=== PATIENT | male | born 1945 | race Caucasian/White ===

== ENCOUNTER 2018-06-18 12:11 | Inpatient (IN) | payer MEDICARE, OTHER ==
[2018-06-18] MEDS ORDERED: Piperacillin/Tazobac ADVAN(*) 3.375 GM in NS 0.9% 100 ML* 100 ML IVPB ONE (13:14)
--- NOTE | 2018-06-18 13:16 | ED ---
Headache - HPI Summary HPI Summary: The pt is a quadriplegic 72 y/o male accompanied by his and son presenting to [facility] c/o of MONREAL since yesterday afternoon. He notes neck pain, upper back pain, nausea, dehydration, loss of appetite and hypotension ( measured at home). The pain rated 4/10 in severity is described as aching. The pt denies fever and cough and reports a Mhx of PNA and RBBB. - History Of Current Complaint Chief Complaint: EDGeneral Stated Complaint: HEADACHE/NECK PAIN Time Seen by Provider: 06/18/18 12:56 Hx Obtained From: Patient, Family/Senior Clinical Data Analyst - Onset/Duration: Gradual Onset, Started days ago - 1 day ago, Still Present Initially Headache Was: Mild Currently Pain Is: Current Pain Scale(0-10)= - 4/10 Timing: Constant Associated Signs And Symptoms: Negative - Fever, cough, Nausea, Neck Pain, Other (Noted In Comments) - Loss of appetite, dehydration,hypotension, upper back pain - Allergies/Home Medications Allergies/Adverse Reactions: Allergies Allergy/AdvReac Type Severity Reaction Status Date / Time No Known Allergies Allergy Verified 06/18/18 12:48 PMH/Surg Hx/FS Hx/Imm Hx Previously Healthy: No Cardiovascular History: Reports: Hx Hypertension, Other Cardiovascular Problems/ Disorders - RBBB Respiratory History: Reports: Hx Pneumonia GI History: Reports: Hx Gastroesophageal Reflux Disease Neurological History: Reports: Hx Nerve Disease - Unspecified Psychiatric History: Reports: Hx Depression - Surgical History Surgery Procedure, Year, and Place: Appendectomy, bilateral meniscetomies, R hip repair Infectious Disease History: No Infectious Disease History: Denies: Traveled Outside the [place] in Last 30 Days - Family History Known Family History: Negative: Seizure Disorder, Blood Disorder - Social History Occupation: Retired Lives: With Family Alcohol Use: None Hx Substance Use: No Hx Tobacco Use: No Smoking Status (MU): Never Smoked Tobacco Review of Systems Constitutional: Other - Positive: dehydration, loss of appetite Negative: Fever Cardiovascular: Other - Positive: hypotension Negative: Cough Positive: Nausea Positive: Other - Positive: upper back pain Positive: Headache All Other Systems Reviewed And Are Negative: Yes Physical Exam - Summary Physical Exam Summary: Appearance:pt is alert and oriented; the pt is quadriplegic and wheelchair- bound Skin: warm, dry, reflects adequate perfusion Head/face: normal Eyes: EOMI, WHITNEY ENT: normal Neck: supple, non-tender Respiratory: CTA, breath sounds present Cardiovascular: RRR, pulses symmetrical Abdomen: non-tender, soft; distended Bowel: present Musculoskeletal: extremities are contracted Neuro: A&Ox3 quadriplegic Triage Information Reviewed: Yes Vital Signs On Initial Exam: Initial Vitals Temp Pulse Resp BP Pulse Ox 97.6 F 68 20 79/34 91 06/18/18 12:12 06/18/18 12:12 06/18/18 12:12 06/18/18 12:12 06/18/18 12:12 Vital Signs Reviewed: Yes Diagnostics - Vital Signs Vital Signs Temp Pulse Resp BP Pulse Ox 06/18/18 12:12 97.6 F 68 20 79/34 91 - Laboratory Result Diagrams: 06/18/18 13:35 06/18/18 13:35 Lab Statement: Any lab studies that have been ordered have been reviewed, and results considered in the medical decision making process. - Radiology CXR Radiology Interpretation Completed By: Radiologist - IMPRESSION: EXPIRATORY EXAMINATION. The ED physician has reviewed this radiology report. - EKG 13:37 Cardiac Rate: NL - 66 bpm EKG Interpretation: LBBB Headache Course/Dx - Course Course Of Treatment: A 72 year-old M presents to the ED with a CC of MONREAL since yesterday afternoon. He notes neck pain, upper back pain, nausea, dehydration, loss of appetite and hypotension (measured at home). The pain rated 4/10 in severity is described as aching. The pt denies fever and cough and reports a Mhx of PNA and RBBB. A physical exam revealed contracted extremities, and a distended abdomen. A CXR is normal. An EKG reveals LBBB. In the ED course, the pt was given lactated ringers 3540 mL IV, Vancomycin 1750 mg IV, N.s 0.9% 1000mL IV, Piperacilin 2.275 mg IV which improved the symptoms. I discussed the care of the pt with Dr. Marsh who agreed to admit the pt. Patient will be admitted with a final Dx of sepsis, hypotension, positive troponin, ACS, and abnormal LFTs. The pt is agreeable with this plan. Allergies noted. - Diagnoses Differential Diagnosis/HQI/PQRI: Other - sepsis/shock/pneumonia/acs Provider Diagnoses: Sepsis, Hypotension, Elevated troponin, ACS (acute coronary syndrome), Abnormal LFTs - Physician Notifications Discussed Care Of Patient With: Julia Marsh - Hospitalist Time Discussed With Above Provider: 14:20 Instructed by Provider To: Admit As Inpatient - Critical Care Time Critical Care Time: 30-74 min - 30 minutes Discharge - Sign-Out/Discharge Documenting (check all that apply): Patient Departure - Discharge Plan Condition: Stable Disposition: ADMITTED TO [facility] - Billing Disposition and Condition Condition: STABLE Disposition: Admitted to [facility] - Attestation Statements Document Initiated by Scribe: Yes Documenting Scribe: Mari Cuellar Provider For Whom Scribe is Documenting (Include Credential): Dr. Benjamin Riggs MD Scribe Attestation: Mari Gonzalez , scribed for Dr. Benjamin Riggs MD on 06/18/18 at 1833. Scribe Documentation Reviewed: Yes Provider Attestation: The documentation as recorded by the scribeMari accurately reflects the service I personally performed and the decisions made by , Dr. Benjamin Riggs MD
[2018-06-18 13:42] LABS: ABS Basophils 0 10^3/ul (0-0.2); ABS Eosinophils 0 10^3/ul (0-0.6); ABS Lymphocytes 0.2 10^3/ul (1.0-4.8); ABS Monocytes 0.3 10^3/ul (0-0.8); ABS Neutrophils 13.7 10^3/ul (1.5-7.7); ABS Nucleated RBC 0 10^3/ul; Eosinophil % 0 % (0-6); Hematocrit 41 % (42-52); Hemoglobin 13.7 g/dl (14.0-18.0); Lymphocyte % 1.5 % (25-47); Mean Corpuscular HGB Conc 33 g/dl (31-36); Mean Corpuscular Hemoglobin 29 pg (27-31); Mean Corpuscular Volume 87 fL (80-94); Mean Platelet Volume 8.7 um3 (7.4-10.4); Nucleated Red Blood Cells % 0; Platelet Count 216 10^3/ul (150-450); Red Blood Count 4.74 10^6/ul (4.00-5.40); Red Cell Distribution Width 16 % (10.5-15); White Blood Count 14.3 10^3/ul (3.5-10.8)
[2018-06-18] MEDS ORDERED: Vancomycin(*) 1,000 MG VIAL IVPB SCH (14:00)
[2018-06-18] MEDS ORDERED: Vancomycin(*) 1,750 MG in NS 0.9% 500 ML* 500 ML IVPB ONE (14:00)
[2018-06-18 14:04] LABS: EGFR Non-African American 40.9 (>60)
--- NOTE | 2018-06-18 14:10 | RAD ---
INDICATION: Sepsis COMPARISON: None TECHNIQUE: An AP portable view obtained at 1340 hours is submitted. FINDINGS: Bones/Soft Tissues: There are no acute bony findings. Cardiomediastinal: The cardiomediastinal silhouette is normal. Lungs: The examination is expiratory with vascular crowding. There is bibasilar atelectasis Pleura: There are no pleural effusions. Other: None IMPRESSION: EXPIRATORY EXAMINATION.
[2018-06-18] MEDS: Lactated Ringers 1000 ml Bag*IV.FLUID IV ONE ×3 (14:11→16:02)
[2018-06-18 14:45] LABS: Urine Appearance Cloudy; Urine Blood 2+ (Negative); Urine Color Amber; Urine Ketones Negative (Negative); Urine Protein Negative (Negative); Urine Red Blood Cell 3+(>10/hpf) (Absent); Urine Specific Gravity 1.013 (1.010-1.030); Urine Urobilinogen Negative (Negative); Urine White Blood Cell Trace(0-5/hpf) (Absent)
[2018-06-18] MEDS ORDERED: Magnesium Hydroxide LIQ* 30 ML UDC PO PRN (15:42)
[2018-06-18] MEDS ORDERED: Al Hydrox/Mg Hydrox/Simet LIQ* 30 ML UDC PO PRN (15:42)
[2018-06-18] MEDS ORDERED: Zosyn per Pharmacy* NOTE FOLLOW UP SCH (16:00)
[2018-06-18] MEDS: Iodixanol* (CONTRAST) 320 MG/ML 100 ML SDV IV ONE ×2 (17:01→17:10)
--- NOTE | 2018-06-18 17:28 | RAD ---
Indication: Nausea. Headache, sepsis, hypotension. Comparison: No relevant prior exams available on the [facility] [place] for comparison. Technique: Noncontrast CT vertex of skull through foramen magnum. Report: Image quality is severely compromised due to limitation in patient positioning resulting from severe thoracic kyphosis with resulting elevated head position relative to the gantry. Unremarkable ventricles and basal cisterns. No gross abnormality of the cerebral sulci or cerebellar fissures. Negative for midline shift. No compelling intra or extra-axial hemorrhage evident. Assessment for hernandez matter white matter obscuration is limited due to poor image quality. Indolent thickening of the inner table of the frontal bone and ossification of the interhemispheric falx noted. No suspicious calvarial or skull base lesions evident. Air-fluid level at the partially visualized RIGHT maxillary sinus. The remaining visualized paranasal sinuses and mastoid air spaces are clear. Unremarkable scalp. IMPRESSION: #. Limited exam as noted. #. No gross evidence for intracranial hemorrhage. #. No gross evidence for mass effect. #. Negative for hydrocephalus.
--- NOTE | 2018-06-18 17:54 | RAD ---
CLINICAL HISTORY: Nausea, sepsis and elevated bilirubin. Relevant surgical history includes appendectomy. COMPARISON: None TECHNIQUE: Contrast enhanced CT examination of the abdomen and pelvis from the lung bases through the initial tuberosities. The patient received 141 mL Visipaque 320 intravenously prior to imaging. FINDINGS: VISUALIZED LUNG BASES: There are small bibasilar pleural effusions. There are pleural-based densities at the left worse than right lungs consistent with atelectasis. ABDOMEN AND PELVIS: In the left lobe of the liver there are several fluid attenuation structures compatible with benign cysts. Smaller hypodense foci are identified that are too small to characterize on this CT examination. The spleen, pancreas and adrenal glands are grossly normal in appearance. The gallbladder is pathologically dilated measuring 6.1 cm in diameter. In the bilateral kidneys there are multiple low-attenuation foci some with Hounsfield units compatible with simple cyst while others have Hounsfield units in the negative range indicating the presence of fat. There are nonobstructing renal calculi, the largest measuring 9 mm in the left kidney. There is no hydronephrosis. A Britton catheter is in position with the balloon in the decompressed urinary bladder. The small and large bowel are not distended. The patient's normal appendix is identified in the right lower quadrant. There is no gross retroperitoneal or mesenteric lymphadenopathy. The pelvic viscera is normal in appearance. The abdominal aorta and iliac arteries are normal in course and diameter. There are advanced degenerative changes of the lower thoracic and lumbar spine in addition to what appears to be expansile low-attenuation material at the L1, L2 and L3 level. There is an anatomically aligned intramedullary fixation device at the left proximal femur. There is infiltration of the subcutaneous fat overlying the lateral lower abdominal wall and buttocks. Subcutaneous veins from the left axilla are seen tracking along the left lateral abdominal wall with contrast. IMPRESSION: 1. There is pathologic dilatation of the gallbladder measuring up to 6.1 cm in diameter. Please correlate to signs or symptoms of acute cholecystitis and/or biliary obstruction. If clinically warranted superior characterization can be made with right upper quadrant ultrasound. 2. Small bibasilar pleural effusions and linear density most consistent with atelectasis. 3. Multiple low-attenuation structures in the bilateral kidneys, most of which have Hounsfield unit measurements consistent with simple cysts while others consistent negative attenuation indicating the presence of fat. There is no hydronephrosis. Recommend further characterization with nonemergent ultrasound. 4. There is low-attenuation replacement of the L3 vertebral body extending to the L1 and L2 vertebral bodies. The chronicity of this is unknown but could be related to prior traumatic injury resulting in the patient's reported paraplegia. Alternatively, this could be the result of infection in a patient with sepsis. 5. Contrast presumably injected into the left upper extremity is seen refluxing in the superficial veins of the left abdomen suggesting the presence of central venous obstruction or stenosis. 6. Infiltration of the subcutaneous fat overlying the bilateral low abdomen and extending to the buttocks could be consistent with anicteric/fluid overload which would also correlate to the small bibasilar pleural effusions. 7. There are additional chronic, degenerative and iatrogenic findings described in the body the report.
--- NOTE | 2018-06-18 18:00 | RAD ---
INDICATION: Headache COMPARISON: None. TECHNIQUE: Axial source images were acquired with coronal and sagittal reformatting. FINDINGS: There is straightening of the normal cervical lordosis. The vertebral bodies and facet joints are otherwise appropriately aligned. There is no acute fracture or dislocation identified. Degenerative changes of the cervical spine includes loss of intervertebral disc height and mild marginal osteophyte formation. At the left neck the thyroid gland appears to be enlarged and partially calcified. It is not completely imaged on the CT examination. IMPRESSION: 1. DEGENERATIVE CHANGES OF THE CERVICAL SPINE WITHOUT DEFINITE EVIDENCE FOR FRACTURE OR DISLOCATION. 2. There is a low-attenuation partially calcified structure at the left lower neck suspected to be the thyroid gland. As clinically warranted superior characterization of the thyroid can be made with ultrasound.
[2018-06-18] MEDS: Acetaminophen TAB* 325 MG PO PRN (18:03)
[2018-06-18] MEDS ORDERED: Vancomycin(*) 1,000 MG in NS 0.9% 250 ML* 250 ML IVPB ONE (18:04)
[2018-06-18] MEDS: Pantoprazole IV* 40 MG IV SCH (18:57)
[2018-06-18] MEDS ORDERED: Vancomycin per Pharmacy* NOTE FOLLOW UP SCH (19:00)
[2018-06-18] MEDS: Piperacillin/Tazobac ADVAN(*) 3.375 GM in NS 0.9% 100 ML* 100 ML IVPB SCH (20:25)
--- NOTE | 2018-06-18 21:11 | HP ---
ADMISSION HISTORY AND PHYSICAL: DATE OF ADMISSION: 06/18/18 PATIENT OF ATTENDING HOSPITALIST: Dr. Conor Jett.* (DICTATED BY SORAYA ZELAYA) PRIMARY CARE PHYSICIAN: The patient is from out of town, and his PCP is unknown at this time. CHIEF COMPLAINT: Malaise, headache, and hypotension. HISTORY OF PRESENT ILLNESS: Mr. 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 He [place] at [facility], approximately 3- [address] from [place] and has been in town for the weekend to visit his son who works in [place]. 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 They were walking around a mall yesterday when the patient started to have occasional headaches, mostly located in the occipital area as well as pain along the posterior neck. He denied any photophobia, fever , muscle spasm, weakness, or numbness. He denied any chest pain, cough, shortness of breath, fever, or chills. He has history of pneumonia in the past for which he was hospitalized about 5 years ago as well as history of urinary tract infection; however, the patient is able to urinate on his own and he does not use a self-cath at home. He lives in [place], [place] and has no history of coronary artery disease. According to his who checked his blood pressure earlier today, it was noted to be low in average of 80s/40s associated with malaise, lack of appetite, nausea as well as upper back pain and neck pain. The patient notes that his posterior neck pain is rated 5/10, achy and it does not radiate anywhere else. Given his ongoing symptoms, he was brought to the emergency room for further evaluation. He had laboratory workup that revealed leukocytosis with white count of 14,000 as well as hypotension without tachycardia or high temperature; however, consistent with sepsis. The patient also had chemistry panel that revealed elevated bilirubin of 4 as well as elevated troponin of 0.17. His urinalysis showed white blood cells, but there was no evidence of nitrites or leukocyte esterase to be consistent with UTI. It was unclear what was the source of his sepsis for which we were asked to see the patient for further evaluation and to consider admission for close observation and treatment of severe sepsis. PAST MEDICAL HISTORY: Significant for: 1. Hypertension. 2. History of left bundle-branch block. 3. History of pneumonia with prior hospitalization. 4. History of gastroesophageal reflux disease. 5. History of ALS with rare presentation that led to the patient being quadriplegic approximately 20 years ago. 6. He also has history of depression. PAST SURGICAL HISTORY: Significant for: 1. Appendectomy. 2. Bilateral meniscectomies. 3. Right hip repair after fracture. CURRENT MEDICATIONS: According to his , his most updated medication list given to us included: 1. Coreg 12.5 mg 1 tablet b.i.d. 2. Zestoretic 20 mg 1 tablet every other day. 3. Lasix, takes 100 mg weekly, divided on 4 days at 40, 20, 20, and 20 mg respectively. 4. Baclofen 20 mg p.o. b.i.d. 5. Nexium 40 mg p.o. daily. 6. Zoloft 100 mg p.o. every other day. ALLERGIES: Include ROCEPHIN and ASPIRIN. SOCIAL HISTORY: The patient lives with his who is a retired nurse. They reside at [place], [place], approximately [address] from [place]. He is a nonsmoker. Denies alcohol intake. He wishes to be a full code and his is the healthcare proxy carrier. FAMILY HISTORY: Reviewed and noncontributory. REVIEW OF SYSTEMS: See HPI. Otherwise, 14 points review of systems were examined and they were essentially negative. PHYSICAL EXAMINATION GENERAL: He is a pleasant, obese, older male, in no acute distress or discomfort at the time of admission. VITAL SIGNS: Most recent set of vitals was temperature of 97.6, pulse of 64, blood pressure of 88/48, respirations of 20 with O2 sats of 95% on room air. HEENT: Head is normocephalic, atraumatic. Sclerae are anicteric. PERRLA. EOMs intact. There is moderate posterior C-spine tenderness along the midline with no evidence of ecchymosis or swelling. There is no photophobia noted. There is no tenderness or bone flexing the neck, so chin is touching the sternum. There is no other neck rigidity of meningeal signs noted. LUNGS: Clear to auscultation bilaterally. There are decreased breath sounds throughout. HEART: Regular rate and rhythm. Normal S1 and S2 without rubs, murmurs, or gallops. BACK: With normal curvature. No CVA tenderness. There is no evidence of any decubitus ulcers along the lower back or sacral area. ABDOMEN: Soft and protruded. There is a large midline ventral hernia noted that appears to be nontender and does not show signs of strangulation or incarceration. It is easily reducible and there are no other masses or lesion noted. No hepatosplenomegaly. RECTAL: Exam deferred at this time. EXTREMITIES: Without cyanosis, clubbing or edema. NEUROLOGIC: Tongue is midline and the patient is alert, oriented, and cooperative. Sensory motor exam deferred at this time. The patient with history of quadriplegia. LABORATORY WORKUP: CBC with white count of 14,000, hemoglobin 13.7, hematocrit of 41 and platelets of 216. Chemistry panel with sodium of 135, potassium 5.3, chloride 99, CO2 28, BUN of 31, creatinine of 1.6, glucose of 159. Lactic acid 1.0. LFTs elevated with alkaline phosphatase 173, total bilirubin of 4, AST of 259, and ALT of 320. His troponin was elevated at 0.17. ACCESSORY DIAGNOSTIC DATA: Chest x-ray showed expiratory effort. We will likely repeat it if there are any symptoms of cough or shortness of breath. His EKG showed left bundle-branch block, unchanged from prior record obtained from the . No evidence of ST changes. IMPRESSION: A 72-year-old gentleman with multiple complicated medical issues including a rare form of neurological condition that was subdivided as an ALS causing quadriplegia for the past 20 years as well as history of hypertension and anxiety, GERD who presented to the emergency room today with generally feeling weak, malaise, lack of appetite and found to be hypotensive with leukocytosis consistent with severe sepsis. ASSESSMENT AND PLAN: 1. Severe sepsis. I discussed the case with my attending, Dr. Jett and we agreed to admit the patient to the intensive care unit for close observation. He is receiving the proper fluid resuscitation per sepsis protocol in the emergency room and will continue aggressive hydration. Britton catheter was inserted to monitor his intake and output. It is unclear what is the source of his sepsis at this time; however, with his hypotension and leukocytosis, we will cover him empirically with Zosyn at this time awaiting urine cultures, blood cultures as well as CT scan of the abdomen and pelvis. In the setting of elevated bilirubinemia, I also suspect that the patient might have acute cholecystitis or possibly passing a gallbladder stone. He is unable to give a clear picture of his presentation due to lack of pain from his shoulders down. His abdomen appears to be soft on exam with no evidence of firmness or tympany or signs of acute abdomen. We will also repeat his chest x-ray at some point given his history of pneumonia; however, he presents with no evidence of cough or shortness of breath at this time. 2. Amyotrophic lateral sclerosis, a form of neuralgia with quadriplegia. The patient described a rare form of neurologic disease for which the patient has been worked extensively in the past and has been quadriplegic for the past 20 years. We will continue supportive care and move him around the bed every 2 hours. Avoid any pressure ulcers. 3. Elevated liver function tests. Again, in the setting of sepsis, I cannot rule out the possibility of acute cholecystitis. The patient does not appear to be jaundiced during exam; however, his bilirubin is up to 4 as well as his transaminases were slightly up as well. We will await the findings of his abdomen and pelvis CT for further evaluation. I have discussed these findings with his family who agreed to admission plans. 4. Elevated troponin. The patient expressed no chest pain or shortness of breath. He does not have any history of coronary artery disease or MD. I will obtain a serial troponin check, repeat his EKG in the morning for further evaluation. 5. Hypertension. Upon presentation, the patient was hypotensive likely secondary to severe sepsis and in the setting of dehydration as well since he has been nauseous and did not eat or drink anything all day. We will continue aggressive hydration and follow him up accordingly. 6. Gastroesophageal reflux disease. We will continue PPI coverage with Protonix. 7. Anxiety. We will resume his Zoloft. 8. DVT prophylaxis. He is a high risk and will be covered with subcu heparin. 9. Code status. He wishes to be a full code. 10. Disposition. Admit to intensive care unit for close observation, aggressive IV hydration, possible use of pressors in the setting of severe sepsis and additional workup to rule out possibility of gallbladder disease and rule out acute coronary syndrome in the setting of elevated troponin. I will also check a CT scan of the head and cervical spine given his presentation of headache; however, I suspect that could be likely musculoskeletal in origin. He seems to be stable at the time of admission and I would discuss the case with my attending who agreed to plan of care. TIME SPENT: Approximately 60 minutes were spent admitting this patient, with greater than 50% on taking history and performing physical exam. SORAYA ZELAYA [id number]/[facility] #: [id number]
[2018-06-18] MEDS: Ondansetron INJ* 2 MG/ML VIAL IV PRN (21:46)
[2018-06-18] MEDS ORDERED: NS 0.9% 500 ML* 500 ML IV ONE (22:50)
[2018-06-18] MEDS: Heparin VIAL(*) 5000 UNITS/ML VIAL (FIVE THOUSAND) SUBCUT SCH (22:57)
[2018-06-19] MEDS ORDERED: NS 0.9% 1000 ML* 1,000 ML IV SCH (02:00)
[2018-06-19] MEDS: Piperacillin/Tazobac ADVAN(*) 3.375 GM in NS 0.9% 100 ML* 100 ML IVPB SCH ×3 (03:38→19:43)
[2018-06-19 06:18] LABS: ABS Basophils 0 10^3/ul (0-0.2); ABS Eosinophils 0 10^3/ul (0-0.6); ABS Lymphocytes 0.1 10^3/ul (1.0-4.8); ABS Monocytes 0.6 10^3/ul (0-0.8); ABS Neutrophils 13.1 10^3/ul (1.5-7.7); ABS Nucleated RBC 0 10^3/ul; Eosinophil % 0 % (0-6); Hematocrit 37 % (42-52); Hemoglobin 12.1 g/dl (14.0-18.0); Lymphocyte % 1.1 % (25-47); Mean Corpuscular HGB Conc 33 g/dl (31-36); Mean Corpuscular Hemoglobin 29 pg (27-31); Mean Corpuscular Volume 87 fL (80-94); Nucleated Red Blood Cells % 0; Platelet Count 196 10^3/ul (150-450); Red Blood Count 4.24 10^6/ul (4.00-5.40); Red Cell Distribution Width 17 % (10.5-15); White Blood Count 13.9 10^3/ul (3.5-10.8)
[2018-06-19] MEDS: Heparin VIAL(*) 5000 UNITS/ML VIAL (FIVE THOUSAND) SUBCUT SCH ×3 (06:37→21:04)
[2018-06-19 06:38] LABS: EGFR Non-African American 55.7 (>60)
--- NOTE | 2018-06-19 08:52 | RAD ---
Indication: Distended gallbladder on CT. Nausea. Comparison: No relevant prior exams available on the [facility] P[facility] for comparison. Technique: RIGHT upper quadrant ultrasound. Report: Limited acoustic window due to large body habitus and patient unable to lie supine for ultrasound exam. Appropriate direction flow documented in the portal and hepatic veins. 18.2 cm liver is increased in echogenicity. No visualized focal hepatic lesions. Negative for intrahepatic biliary dilatation. The common bile duct could not be visualized. Distended gallbladder with shadowing stones at the level of the gallbladder neck. Normal range 2.8 mm gallbladder wall thickness. No appreciable pericholecystic fluid. Negative for sonographic Napoles's sign. The pancreas is largely obscured due to large body habitus and bowel gas. Negative for ascites. 13.5 cm RIGHT kidney is negative for hydronephrosis. IMPRESSION: #. Limited exam as noted. #. Hepatosteatosis. #. Distended gallbladder with cholelithiasis. Negative for gallbladder wall thickening, pericholecystic fluid, or sonographic Napoles sign to strongly favor acute cholecystitis.
[2018-06-19] MEDS: Ondansetron INJ* 2 MG/ML VIAL IV PRN (09:01)
--- NOTE | 2018-06-19 10:10 | PN ---
Date of Service: 06/19/18 Critical Care Services: 72M with htn, gerd, h/o LBBB, ALS presents with AMS that started yesterday. The patient was brought to the ER and was found to have leukocytosis and abnormal LFTs. He was hypotensive and started on if fluids and antibiotics. 06/19: Mental status somewhat improved as per family. BP remains low. Vital Signs: Temp Pulse Resp BP SpO2 FiO2 98.4 F 78 16 89/40 91 2 06/19/18 08:00 06/19/18 06:00 06/19/18 06:00 06/19/18 06:00 06/19/18 06:00 06/19 03:55 Physical Exam: Gen - NAD, Obese HEENT - NCAT, EOMI Neck - No JVD CV - s1/s2, no murmur Lungs - dec bs, no wheeze Abd - soft, nt, Ext - contracted, trace edema Neuro - answers questions slowly, does not move extremities Fluid Balance (Past 24 Hours): I= O= Net Intake & Output 06/17/18 06/18/18 06/19/18 06/20/18 06:59 06:59 06:59 06:59 Intake Total 5247 Output Total 1435 Balance 3812 Weight 121 kg Intake: IV Fluids 2458 LR 258 IVPB 2664 LR 1390 NS 1274 Medicated IV 125 zosyn 125 Oral 0 Output: Byers 1135 Residual 300 Byers 16 Fr 300 Labs: Laboratory Results - last 24 hr 06/18/18 06/18/18 06/18/18 13:35 13:35 13:35 WBC 14.3 H RBC 4.74 Hgb 13.7 L Hct 41 L MCV 87 MCH 29 MCHC 33 RDW 16 H Plt Count 216 MPV 8.7 Neut % (Auto) 96.3 H Lymph % (Auto) 1.5 L [place] % (Auto) 2.1 Eos % (Auto) 0 Baso % (Auto) 0.1 Absolute Neuts (auto) 13.7 H Absolute Lymphs (auto) 0.2 L Absolute Monos (auto) 0.3 Absolute Eos (auto) 0 Absolute Basos (auto) 0 Absolute Nucleated RBC 0 Nucleated RBC % 0 INR (Anticoag Therapy) 1.00 APTT 34.5 Sodium 135 Potassium 5.3 H Chloride 99 L Carbon Dioxide 28 Anion Gap 8 BUN 31 H Creatinine 1.66 H Est GFR ( Amer) 49.5 Est GFR (Non-Af Amer) 40.9 BUN/Creatinine Ratio 18.7 Glucose 159 H Lactic Acid Calcium 8.7 Total Bilirubin 4.00 H AST 259 H ALT 320 H Alkaline Phosphatase 173 H Total Creatine Kinase 217 Troponin I 0.17 H* Total Protein 6.8 Albumin 3.8 Globulin 3.0 Albumin/Globulin Ratio 1.3 Lipase 20 Urine Color Urine Appearance Urine pH Ur Specific [place] Urine Protein Urine Ketones Urine Blood Urine Nitrate Urine Bilirubin Urine Urobilinogen Ur Leukocyte Esterase Urine WBC (Auto) Urine RBC (Auto) Ur Squamous Epith Cells Urine Bacteria Hyaline Casts Urine Glucose Urine Ascorbic Acid 06/18/18 06/18/18 06/18/18 13:35 14:29 21:56 WBC RBC Hgb Hct MCV MCH MCHC RDW Plt Count MPV Neut % (Auto) Lymph % (Auto) [place] % (Auto) Eos % (Auto) Baso % (Auto) Absolute Neuts (auto) Absolute Lymphs (auto) Absolute Monos (auto) Absolute Eos (auto) Absolute Basos (auto) Absolute Nucleated RBC Nucleated RBC % INR (Anticoag Therapy) APTT Sodium Potassium Chloride Carbon Dioxide Anion Gap BUN Creatinine Est GFR ( Amer) Est GFR (Non-Af Amer) BUN/Creatinine Ratio Glucose Lactic Acid 1.0 Calcium Total Bilirubin AST ALT Alkaline Phosphatase Total Creatine Kinase Troponin I 0.17 H* Total Protein Albumin Globulin Albumin/Globulin Ratio Lipase Urine Color Stella Urine Appearance Cloudy Urine pH 5.0 Ur Specific [place] 1.013 Urine Protein Negative Urine Ketones Negative Urine Blood 2+ A Urine Nitrate Negative Urine Bilirubin Negative Urine Urobilinogen Negative Ur Leukocyte Esterase Negative Urine WBC (Auto) Trace(0-5/hpf) Urine RBC (Auto) 3+(>10/hpf) A Ur Squamous Epith Cells Present A Urine Bacteria Absent Hyaline Casts Present A Urine Glucose Negative Urine Ascorbic Acid * A 06/19/18 06/19/18 06/19/18 00:54 05:57 05:57 WBC 13.9 H RBC 4.24 Hgb 12.1 L Hct 37 L MCV 87 MCH 29 MCHC 33 RDW 17 H Plt Count 196 MPV 9.0 Neut % (Auto) 94.4 H Lymph % (Auto) 1.1 L [place] % (Auto) 4.4 Eos % (Auto) 0 Baso % (Auto) 0.1 Absolute Neuts (auto) 13.1 H Absolute Lymphs (auto) 0.1 L Absolute Monos (auto) 0.6 Absolute Eos (auto) 0 Absolute Basos (auto) 0 Absolute Nucleated RBC 0 Nucleated RBC % 0 INR (Anticoag Therapy) APTT Sodium 137 Potassium 4.9 Chloride 102 Carbon Dioxide 25 Anion Gap 10 BUN 34 H Creatinine 1.27 H Est GFR ( Amer) 67.5 Est GFR (Non-Af Amer) 55.7 BUN/Creatinine Ratio 26.8 H Glucose 136 H Lactic Acid 0.8 Calcium 7.9 L Total Bilirubin 1.90 H D AST 150 H ALT 242 H Alkaline Phosphatase 145 H Total Creatine Kinase Troponin I Total Protein 5.8 L Albumin 3.2 Globulin 2.6 Albumin/Globulin Ratio 1.2 Lipase Urine Color Urine Appearance Urine pH Ur Specific [place] Urine Protein Urine Ketones Urine Blood Urine Nitrate Urine Bilirubin Urine Urobilinogen Ur Leukocyte Esterase Urine WBC (Auto) Urine RBC (Auto) Ur Squamous Epith Cells Urine Bacteria Hyaline Casts Urine Glucose Urine Ascorbic Acid Studies: CXR 06/18 IMPRESSION: EXPIRATORY EXAMINATION. CT abd/pel 06/18 IMPRESSION: 1. There is pathologic dilatation of the gallbladder measuring up to 6.1 cm in diameter. Please correlate to signs or symptoms of acute cholecystitis and/or biliary obstruction. If clinically warranted superior characterization can be made with right upper quadrant ultrasound. 2. Small bibasilar pleural effusions and linear density most consistent with atelectasis. 3. Multiple low-attenuation structures in the bilateral kidneys, most of which have Hounsfield unit measurements consistent with simple cysts while others consistent negative attenuation indicating the presence of fat. There is no hydronephrosis. Recommend further characterization with nonemergent ultrasound. 4. There is low-attenuation replacement of the L3 vertebral body extending to the L1 and L2 vertebral bodies. The chronicity of this is unknown but could be related to prior traumatic injury resulting in the patient's reported paraplegia. Alternatively, this could be the result of infection in a patient with sepsis. 5. Contrast presumably injected into the left upper extremity is seen refluxing in the superficial veins of the left abdomen suggesting the presence of central venous obstruction or stenosis. 6. Infiltration of the subcutaneous fat overlying the bilateral low abdomen and extending to the buttocks could be consistent with anicteric/fluid overload which would also correlate to the small bibasilar pleural effusions. 7. There are additional chronic, degenerative and iatrogenic findings described in the body the report. Brain CT 06/18 IMPRESSION: #. Limited exam as noted. #. No gross evidence for intracranial hemorrhage. #. No gross evidence for mass effect. #. Negative for hydrocephalus. Cervical Spine CT 06/18 IMPRESSION: 1. DEGENERATIVE CHANGES OF THE CERVICAL SPINE WITHOUT DEFINITE EVIDENCE FOR FRACTURE OR DISLOCATION. 2. There is a low-attenuation partially calcified structure at the left lower neck suspected to be the thyroid gland. As clinically warranted superior characterization of the thyroid can be made with ultrasound. Gallbladder US 06/19 IMPRESSION: #. Limited exam as noted. #. Hepatosteatosis. #. Distended gallbladder with cholelithiasis. Negative for gallbladder wall thickening, pericholecystic fluid, or sonographic Napoles sign to strongly favor acute cholecystitis. Impression: 72M with htn, gerd, ALS, presents with AMS 2/2 severe sepsis Plan: Neuro - AMS - 2/2 sepsis - somewhat improved CV - hypotension - 2/2 sepsis - will likely need central line for pressors - iv hydration Pulm - hypoxia - 2/2 ALS - supplemental o2 prn - cough assist device - Bipap prn ID - severe sepsis - 2/2 biliary source? - lfts elevated - f/u cultures - lactate negative - empiric vanc zosyn GI - elevated lfts - slightly improved - ct showing dilated gallbladder - RUQ sono distended gallbladder but no wall thickening or pericholecystic fluid - GI and surgery evaluating Renal - sirisha - 2/2 sepsis - creatinine improving - monitor lytes - strict i/o Heme - monitor cbc Endo - check fs, niss Lines - piv, byers PPx - gi/dvt Full Code Critical Care Time: 50 mins
--- NOTE | 2018-06-19 12:45 | CONS ---
AMENDED REPORT NOW INCLUDES DATE OF CONSULT CC: Dr. Epi Silverio; [facility] CONSULTATION REPORT: DATE OF CONSULT: 06/19/18 HISTORY OF PRESENT ILLNESS: The Surgery Department was contacted by the ICU team to evaluate Mr. Lema, a 72-year-old gentleman who was admitted through the emergency room yesterday with complaints of neck and back pain, was noted to have elevated LFTs and was sent for CT scan of the abdomen and pelvis despite no significant abdominal pain and this was noted to have a dilated gallbladder. Concern was for possible cholecystitis and the patient was admitted with hypotension. Elevated white blood cell count, started on antibiotics and workup included an ultrasound of the gallbladder, which was reviewed as well. The patient was up visiting his relatives when he started experiencing decreased appetite night. He hardly ate anything on Thursday. The patient is fed by his secondary to his advanced ALS. He complained of back pain and as well as who is a nurse took his blood pressure, which was noted to be low and the patient then presented to the emergency room because of this. The patient denies any similar symptoms in the past. Continues to have no significant appetite, some nausea, but no vomiting. He denies abdominal pain. He continues to have neck and back pain. PAST MEDICAL HISTORY: 1. 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 2. Hypertension. 3. Left bundle branch block. 4. Gastroesophageal reflux disease. 5. Depression. PAST SURGICAL HISTORY: 1. Appendectomy. 2. Orthopedic surgeries. MEDICATIONS: Include, 1. Coreg. 2. Zestoretic. 3. Lasix. 4. Baclofen. 5. Nexium. 6. Zoloft. ALLERGIES: ROCEPHIN and ASPIRIN. FAMILY HISTORY: Biliary disease, but no pancreatic cancers, history of colon cancer in his mother. SOCIAL HISTORY: He is a nonsmoker, never smoked. Denies alcohol intake. Lives with his . REVIEW OF SYSTEMS: No shortness of breath, the patient had reflux and aspiration with pneumonia requiring hospitalization last year for about 2 weeks. He is moved by Ethan lift by family members. He is fed by his and usually has a good appetite. No bleeding or clotting disorders. No endocrine disorders. He has been tested for diabetes. No psychiatric illnesses other than mild depression. PHYSICAL EXAM: Temperature, he has been afebrile since arrival at 98.4 is the last. Heart rate in the 70s. Blood pressure 89/40 and has gotten as low as 73. His urine output has been low to fair. Head, ears, eyes, nose, and throat: Normocephalic. Atraumatic. Sclerae are icteric. Neck: Shows no lymphadenopathy. No tenderness or findings along the posterior neck where the patient has discomfort. Lungs: Clear to auscultation at the apices. The patient is quadriplegic and morbidly obese with a BMI of 36. His abdomen is mildly distended. It is tender on deep palpation in the right upper quadrant and in the epigastrium. No rebound tenderness. Sensation is intact. No groin hernias are noted. No CVA tenderness. Extremities: Edema in all 4 extremities. DIAGNOSTIC STUDIES/LAB DATA: The patient's labs were reviewed, showed white count of 14 with left shift upon arrival, still 14 on repeat. Creatinine 1.66 on arrival, which is now 1.27. Lactate is normal. The patient's bilirubin upon arrival is 4, it has come down to 1.9 with elevated transaminases, which have also decreased. The patient has troponin of 0.17 and an albumin of 3.2. The patient's CAT scan of the abdomen and pelvis was reviewed along with the radiologist, dilated gallbladder. Common bile duct was not commented on, but we did discuss it and there could be sign of debris within a nondilated common bile duct. Pancreas is atrophic. No evidence of small bowel obstruction. No free fluid or free air. The patient underwent an ultrasound of the gallbladder and this was reviewed, showed significant amount of stones, dilated gallbladder without gallbladder wall thickening. No pericholecystic fluid. IMPRESSION: A 72-year-old gentleman with amyotrophic lateral sclerosis who presents with back pain and now is noted to have continued hypotension and elevated white blood cell count with improving LFTs, who I believe is suffering with biliary disease, it was unclear if this is cholangitis or resolving cholangitis over cholecystitis with significant hypotension response. The patient is a high risk for intervention at this time with his blood pressure as it is and I would recommend antibiotics and repeat labs, continue hydration. He can have sips of clears if it is okay with Gastroenterology. After discussion with the radiologist, the concern is that an MRCP may not be helpful given the patient's body habitus. However, this may be a good attempted workup for the possibility of cholangitis. The patient has shown some improvement since admission and watchful waiting and continued ICU care seems reasonable. Case was discussed with the ICU attending and we will follow along closely. I do believe the patient should get cholecystectomy at some point and may require urgently on this admission. This is why we will follow him closely. If the patient improves overall whether or not he needs an ERCP or not, I think the patient should undergo laparoscopic cholecystectomy in outpatient setting to prevent repeat of this presentation. [id number]/[facility] #: [id number] [facility] CENTERIvette
[2018-06-19] MEDS ORDERED: Metoclopramide IV* 5 MG/ML 2 ML VIAL IV SLOW PU ONE (13:02)
[2018-06-19] MEDS: Vancomycin(*) 1,500 MG in NS 0.9% 250 ML* 250 ML IVPB SCH (14:15)
[2018-06-19] MEDS ORDERED: Acetaminop/Codeine 30 MG TAB* 1 TAB (300 MG/30 MG) PO ONE ×2 (15:00→23:45)
[2018-06-19] MEDS: Sertraline* 100 MG TAB PO SCH (17:00)
[2018-06-19] MEDS: Pantoprazole IV* 40 MG IV SCH (17:00)
--- NOTE | 2018-06-19 19:50 | CONS ---
GASTROENTEROLOGY CONSULT: DATE: CONSULTING PHYSICIAN: Conor Jett REASON FOR CONSULT: a quadriplegic man with sepsis, on Zosyn and with elevation of LFTs a question of choledocholithiasis. HISTORY OF PRESENT ILLNESS: This 72-year-old man with a progressive neurologic disorder resulting in quadriplegia, developed neck and head pain yesterday. He apparently has normal sensory function in the paralyzed area. He was anorectic, weak and lethargic with depressed sensorium and was brought to the emergency room where he was found to be hypotensive, blood pressure in the 70s, systolic. He is afebrile, but his white count was elevated at 14.3 and appearing septic, he was placed on an antibiotic and admitted to the ICU. CT scan showed some dilation of the gallbladder and bilateral pleural effusions. There were also cysts in the kidneys and the left lobe of the liver. Pancreas appeared atrophic. He was given IV fluids with the antibiotic and his blood pressure has trended up with no pressors yet. His urine output has been 15 to 30 cc per hour. BUN went from 31 to 34 and creatinine from 1.66 to 1.27. PAST MEDICAL HISTORY: 1. Morbid obesity. 2. History of progressive neurologic disorder - ALS variant. 3. Left bundle branch block. 4. Hypertension. 5. GERD - on chronic Nexium. 6. Status post appendectomy. 7. Status post hip fracture and repair. 8. Chronic peripheral edema - he is on chronic diuretics. OUTPATIENT MEDICATIONS: Coreg. Zestoretic Furosemide (4 days a week). Baclofen. Zoloft Nexium 40 mg. SOCIAL HISTORY: He is and he can only move about when his pushes him in a wheelchair. He has a son who lives here in town. REVIEW OF SYSTEMS: No history of hemoptysis, TB, pulmonary emboli, TIA, CVA, PA , cardiac arrhythmias, hepatitis, jaundice, or colon polyps. No history of dysphagia. He eats a general diet without restrictions. PHYSICAL EXAM: He is a chronically ill-appearing man, substantially obese, in bed, immobile. He is anicteric. There is no adenopathy. Breath sounds are diminished. There is no rhonchi or gurgling. The abdomen is obese, symmetric with normal bowel sounds and is generally soft and without rebound. No specific tenderness was elicited. The extremities are atrophic, 1+ edema. Neurologic shows him to be alert, attentive, and he can converse, but he is paralyzed. DIAGNOSTIC STUDIES/LAB DATA: CBC shows hemoglobin 12.1, hematocrit 37, MCV 87, platelets 196. INR 1.0. Today's LFTs improved; bilirubin 1.9 down from 4.0, alkaline phosphatase 145 down from 173, and ALT 242 down from 320. Right upper quadrant ultrasound - shadowing gallstones in the gallbladder and the common duct was not seen. Gallbladder wall thickness was normal. IMPRESSION: Sepsis, probably of biliary origin (as opposed to bilirubin raising nonspecifically with sepsis) and most likely a small pebble transited at cystic and then common duct. Fortunately, there is no sign of anything lodging or causing persisting obstruction. He has gallstones and Dr. Pavon plans to follow him and determine the proper time for cholecystectomy. If he is cholestatic and LFTs abnormalities continue to improve, no further assessment there would appear indicated. [id number]/[facility] #: [id number] [facility]
[2018-06-19] MEDS ORDERED: Acetaminop/Codeine 30 MG TAB* 1 TAB (300 MG/30 MG) ONE (23:47)
[2018-06-20] MEDS ORDERED: ALPRAZolam TAB* 0.25 MG ONE (00:53)
[2018-06-20] MEDS: ALPRAZolam TAB* 0.25 MG PO PRN ×2 (00:55→21:11)
[2018-06-20] MEDS: Piperacillin/Tazobac ADVAN(*) 3.375 GM in NS 0.9% 100 ML* 100 ML IVPB SCH ×3 (03:54→19:47)
[2018-06-20] MEDS: Heparin VIAL(*) 5000 UNITS/ML VIAL (FIVE THOUSAND) SUBCUT SCH ×3 (05:11→21:06)
[2018-06-20 05:36] LABS: ABS Basophils 0 10^3/ul (0-0.2); ABS Eosinophils 0 10^3/ul (0-0.6); ABS Lymphocytes 0.1 10^3/ul (1.0-4.8); ABS Monocytes 0.6 10^3/ul (0-0.8); ABS Neutrophils 15.3 10^3/ul (1.5-7.7); ABS Nucleated RBC 0 10^3/ul; Eosinophil % 0.1 % (0-6); Hematocrit 38 % (42-52); Hemoglobin 12.3 g/dl (14.0-18.0); Lymphocyte % 0.9 % (25-47); Mean Corpuscular HGB Conc 33 g/dl (31-36); Mean Corpuscular Hemoglobin 29 pg (27-31); Mean Corpuscular Volume 88 fL (80-94); Mean Platelet Volume 9.1 um3 (7.4-10.4); Nucleated Red Blood Cells % 0; Platelet Count 199 10^3/ul (150-450); Red Blood Count 4.28 10^6/ul (4.00-5.40); Red Cell Distribution Width 17 % (10.5-15); White Blood Count 16.1 10^3/ul (3.5-10.8)
--- NOTE | 2018-06-20 08:16 | PN ---
Date of Service: 06/20/18 Critical Care Services: 72M with htn, gerd, h/o LBBB, ALS presents with AMS that started yesterday. The patient was brought to the ER and was found to have leukocytosis and abnormal LFTs. He was hypotensive and started on if fluids and antibiotics. 06/19: Mental status somewhat improved as per family. BP remains low. 06/20: Mental status and lab work improving. Vital Signs: Temp Pulse Resp BP SpO2 FiO2 98.5 F 90 21 110/46 92 2 06/20/18 03:32 06/20/18 06:01 06/20/18 06:01 06/20/18 06:01 06/20/18 06:01 06/20 03:58 Physical Exam: Gen - NAD, Obese HEENT - NCAT, EOMI Neck - No JVD CV - s1/s2, no murmur Lungs - dec bs, no wheeze Abd - soft, nt, Ext - contracted, worsening edema Neuro - answers questions slowly, does not move extremities Fluid Balance (Past 24 Hours): I= O= Net Intake & Output 06/18/18 06/19/18 06/20/18 06/21/18 06:59 06:59 06:59 06:59 Intake Total 5247 3441 Output Total 1435 845 Balance 3812 2596 Weight 121 kg 124.7 kg Intake: IV Fluids 2458 1667 LR 258 1503 NS 164 IVPB 2664 1549 ABX - VANCOMYCIN 310 LR 1390 1123 NS 1274 116 Medicated IV 125 225 zosyn 125 225 Oral 0 0 Output: Byers 1135 845 Residual 300 Byers 16 Fr 300 Labs: Laboratory Results - last 24 hr 06/20/18 06/20/18 05:15 05:15 WBC 16.1 H RBC 4.28 Hgb 12.3 L Hct 38 L MCV 88 MCH 29 MCHC 33 RDW 17 H Plt Count 199 MPV 9.1 Neut % (Auto) 95.1 H Lymph % (Auto) 0.9 L [place] % (Auto) 3.6 Eos % (Auto) 0.1 Baso % (Auto) 0.3 Absolute Neuts (auto) 15.3 H Absolute Lymphs (auto) 0.1 L Absolute Monos (auto) 0.6 Absolute Eos (auto) 0 Absolute Basos (auto) 0 Absolute Nucleated RBC 0 Nucleated RBC % 0 Sodium 137 Potassium 4.6 Chloride 105 Carbon Dioxide 25 Anion Gap 7 BUN 37 H Creatinine 1.03 Est GFR ( Amer) 85.9 Est GFR (Non-Af Amer) 71.0 BUN/Creatinine Ratio 35.9 H Glucose 140 H Calcium 7.8 L Magnesium 1.9 Total Bilirubin 1.10 H Direct Bilirubin 0.40 H Indirect Bilirubin 0.7 AST 58 H ALT 168 H Alkaline Phosphatase 116 H Total Protein 5.7 L Albumin 3.2 Globulin 2.5 Albumin/Globulin Ratio 1.3 Studies: CXR 06/18 IMPRESSION: EXPIRATORY EXAMINATION. CT abd/pel 06/18 IMPRESSION: 1. There is pathologic dilatation of the gallbladder measuring up to 6.1 cm in diameter. Please correlate to signs or symptoms of acute cholecystitis and/or biliary obstruction. If clinically warranted superior characterization can be made with right upper quadrant ultrasound. 2. Small bibasilar pleural effusions and linear density most consistent with atelectasis. 3. Multiple low-attenuation structures in the bilateral kidneys, most of which have Hounsfield unit measurements consistent with simple cysts while others consistent negative attenuation indicating the presence of fat. There is no hydronephrosis. Recommend further characterization with nonemergent ultrasound. 4. There is low-attenuation replacement of the L3 vertebral body extending to the L1 and L2 vertebral bodies. The chronicity of this is unknown but could be related to prior traumatic injury resulting in the patient's reported paraplegia. Alternatively, this could be the result of infection in a patient with sepsis. 5. Contrast presumably injected into the left upper extremity is seen refluxing in the superficial veins of the left abdomen suggesting the presence of central venous obstruction or stenosis. 6. Infiltration of the subcutaneous fat overlying the bilateral low abdomen and extending to the buttocks could be consistent with anicteric/fluid overload which would also correlate to the small bibasilar pleural effusions. 7. There are additional chronic, degenerative and iatrogenic findings described in the body the report. Brain CT 06/18 IMPRESSION: #. Limited exam as noted. #. No gross evidence for intracranial hemorrhage. #. No gross evidence for mass effect. #. Negative for hydrocephalus. Cervical Spine CT 06/18 IMPRESSION: 1. DEGENERATIVE CHANGES OF THE CERVICAL SPINE WITHOUT DEFINITE EVIDENCE FOR FRACTURE OR DISLOCATION. 2. There is a low-attenuation partially calcified structure at the left lower neck suspected to be the thyroid gland. As clinically warranted superior characterization of the thyroid can be made with ultrasound. Gallbladder US 06/19 IMPRESSION: #. Limited exam as noted. #. Hepatosteatosis. #. Distended gallbladder with cholelithiasis. Negative for gallbladder wall thickening, pericholecystic fluid, or sonographic Napoles sign to strongly favor acute cholecystitis. Impression: 72M with htn, gerd, ALS, presents with AMS 2/2 severe sepsis 2/2 biliary obstruction Plan: Neuro - AMS, ALS - AMS 2/2 sepsis improving - ALS - PT consult for ROM exercises CV - hypotension - 2/2 sepsis - did not require vasopressors - now developing some edema - will stop iv fluids - if BP stable will restart home lasix Pulm - hypoxia - 2/2 ALS - supplemental o2 prn - cough assist device - Bipap prn ID - severe sepsis - 2/2 biliary obstruction - lfts improving - cultures and lactate neg - c/w vanco zosyn for now GI - biliary obstruction - likely has passed a gall stone - ct showing dilated gallbladder - RUQ sono distended gallbladder but no wall thickening or pericholecystic fluid - GI defers ERCP - Surgery to re-evaluate as an outpatient for cholecystectomy - advance diet as tolerated Renal - sirisha - 2/2 sepsis - creatinine improving - monitor lytes - strict i/o Heme - monitor cbc Endo - check fs, niss Lines - piv, byers PPx - gi/dvt Full Code If remains stable possible transfer to floor in afternoon or tomorrow Critical Care Time: 55 mins
[2018-06-20] MEDS ORDERED: Sertraline* 100 MG TAB PO SCH (09:00)
[2018-06-20] MEDS: Sertraline* 100 MG TAB PO SCH (09:45)
[2018-06-20] MEDS ORDERED: Furosemide IV* 10 MG/ML 2 ML VIAL (20 MG) IV SLOW PU ONE (10:53)
[2018-06-20] MEDS ORDERED: Furosemide IV* 10 MG/ML 2 ML VIAL (20 MG) ONE (10:55)
[2018-06-20] MEDS ORDERED: Baclofen TAB* 10 MG ONE (10:56)
[2018-06-20] MEDS: Baclofen TAB* 20 MG PO SCH ×2 (11:07→21:06)
--- NOTE | 2018-06-20 11:56 | PN ---
Progress Note - Progress Note Date of Service: 06/20/18 SOAP: Subjective: Pt seen and examined. feeling better some appetite neck pain improved Objective: Temp Pulse Resp BP Pulse Ox 99.0 F 97 17 116/51 92 06/20/18 08:16 06/20/18 11:31 06/20/18 11:31 06/20/18 11:31 06/20/18 11:31 Intake & Output 06/19/18 06/20/18 06/20/18 22:59 06:59 14:59 Intake Total 1099 1058 602 Output Total 330 280 330 Balance 769 778 272 Weight 274 lb 14.663 oz sclera icteric abdo: soft/ obese/ nontender Laboratory Last Values WBC 16.1 10^3/ul (3.5-10.8) H 06/20/18 05:15 RBC 4.28 10^6/ul (4.00-5.40) 06/20/18 05:15 Hgb 12.3 g/dl (14.0-18.0) L 06/20/18 05:15 Hct 38 % (42-52) L 06/20/18 05:15 MCV 88 fL (80-94) 06/20/18 05:15 MCH 29 pg (27-31) 06/20/18 05:15 MCHC 33 g/dl (31-36) 06/20/18 05:15 RDW 17 % (10.5-15) H 06/20/18 05:15 Plt Count 199 10^3/ul (150-450) 06/20/18 05:15 MPV 9.1 um3 (7.4-10.4) 06/20/18 05:15 Neut % (Auto) 95.1 % (38-83) H 06/20/18 05:15 Lymph % (Auto) 0.9 % (25-47) L 06/20/18 05:15 [place] % (Auto) 3.6 % (0-7) 06/20/18 05:15 Eos % (Auto) 0.1 % (0-6) 06/20/18 05:15 Baso % (Auto) 0.3 % (0-2) 06/20/18 05:15 Absolute Neuts (auto) 15.3 10^3/ul (1.5-7.7) H 06/20/18 05:15 Absolute Lymphs (auto) 0.1 10^3/ul (1.0-4.8) L 06/20/18 05:15 Absolute Monos (auto) 0.6 10^3/ul (0-0.8) 06/20/18 05:15 Absolute Eos (auto) 0 10^3/ul (0-0.6) 06/20/18 05:15 Absolute Basos (auto) 0 10^3/ul (0-0.2) 06/20/18 05:15 Absolute Nucleated RBC 0 10^3/ul 06/20/18 05:15 Nucleated RBC % 0 06/20/18 05:15 INR (Anticoag Therapy) 1.00 (0.77-1.02) 06/18/18 13:35 APTT 34.5 seconds (26.0-36.3) 06/18/18 13:35 Sodium 137 mmol/L (135-145) 06/20/18 05:15 Potassium 4.6 mmol/L (3.5-5.0) 06/20/18 05:15 Chloride 105 mmol/L (101-111) 06/20/18 05:15 Carbon Dioxide 25 mmol/L (22-32) 06/20/18 05:15 Anion Gap 7 mmol/L (2-11) 06/20/18 05:15 BUN 37 mg/dL (6-24) H 06/20/18 05:15 Creatinine 1.03 mg/dL (0.67-1.17) 06/20/18 05:15 Est GFR ( Amer) 85.9 (>60) 06/20/18 05:15 Est GFR (Non-Af Amer) 71.0 (>60) 06/20/18 05:15 BUN/Creatinine Ratio 35.9 (8-20) H 06/20/18 05:15 Glucose 140 mg/dL (70-100) H 06/20/18 05:15 Lactic Acid 0.8 mmol/L (0.5-2.0) 06/19/18 00:54 Calcium 7.8 mg/dL (8.6-10.3) L 06/20/18 05:15 Magnesium 1.9 mg/dL (1.9-2.7) 06/20/18 05:15 Total Bilirubin 1.10 mg/dL (0.2-1.0) H 06/20/18 05:15 Direct Bilirubin 0.40 mg/dL (0.03-0.18) H 06/20/18 05:15 Indirect Bilirubin 0.7 mg/dL (0.3-1.0) 06/20/18 05:15 AST 58 U/L (13-39) H 06/20/18 05:15 ALT 168 U/L (7-52) H 06/20/18 05:15 Alkaline Phosphatase 116 U/L (34-104) H 06/20/18 05:15 Total Creatine Kinase 217 U/L (10-223) 06/18/18 13:35 Troponin I 0.17 ng/mL (<0.04) H* 06/18/18 21:56 Total Protein 5.7 g/dL (6.4-8.9) L 06/20/18 05:15 Albumin 3.2 g/dL (3.2-5.2) 06/20/18 05:15 Globulin 2.5 g/dL (2-4) 06/20/18 05:15 Albumin/Globulin Ratio 1.3 (1-3) 06/20/18 05:15 Lipase 20 U/L (11.0-82.0) 06/18/18 13:35 Urine Color Stella 06/18/18 14:29 Urine Appearance Cloudy 06/18/18 14:29 Urine pH 5.0 (5-9) 06/18/18 14:29 Ur Specific [place] 1.013 (1.010-1.030) 06/18/18 14:29 Urine Protein Negative (Negative) 06/18/18 14:29 Urine Ketones Negative (Negative) 06/18/18 14:29 Urine Blood 2+ (Negative) A 06/18/18 14:29 Urine Nitrate Negative (Negative) 06/18/18 14:29 Urine Bilirubin Negative (Negative) 06/18/18 14:29 Urine Urobilinogen Negative (Negative) 06/18/18 14:29 Ur Leukocyte Esterase Negative (Negative) 06/18/18 14:29 Urine WBC (Auto) Trace(0-5/hpf) (Absent) 06/18/18 14:29 Urine RBC (Auto) 3+(>10/hpf) (Absent) A 06/18/18 14:29 Ur Squamous Epith Cells Present (Absent) A 06/18/18 14:29 Urine Bacteria Absent (Absent) 06/18/18 14:29 Hyaline Casts Present (Absent) A 06/18/18 14:29 Urine Glucose Negative (Negative) 06/18/18 14:29 Urine Ascorbic Acid * (Negative) A 06/18/18 14:29 Assessment: Cholecystitis vs resolving cholangitis-- improving with abx Plan: abx advance diet slowly repeat U/S to r/o GB wall thickening if pt does not continue to improve will follow
[2018-06-20] MEDS: Vancomycin(*) 1,500 MG in NS 0.9% 250 ML* 250 ML IVPB SCH (16:15)
[2018-06-20] MEDS: Pantoprazole IV* 40 MG IV SCH (16:58)
[2018-06-21] MEDS: Piperacillin/Tazobac ADVAN(*) 3.375 GM in NS 0.9% 100 ML* 100 ML IVPB SCH (04:26)
[2018-06-21 06:12] LABS: ABS Basophils 0.1 10^3/ul (0-0.2); ABS Eosinophils 0 10^3/ul (0-0.6); ABS Lymphocytes 0.1 10^3/ul (1.0-4.8); ABS Monocytes 0.7 10^3/ul (0-0.8); ABS Neutrophils 11.6 10^3/ul (1.5-7.7); ABS Nucleated RBC 0 10^3/ul; Eosinophil % 0.1 % (0-6); Hematocrit 39 % (42-52); Hemoglobin 12.6 g/dl (14.0-18.0); Mean Corpuscular HGB Conc 33 g/dl (31-36); Mean Corpuscular Hemoglobin 29 pg (27-31); Mean Corpuscular Volume 87 fL (80-94); Mean Platelet Volume 8.7 um3 (7.4-10.4); Nucleated Red Blood Cells % 0.1; Platelet Count 210 10^3/ul (150-450); Red Blood Count 4.41 10^6/ul (4.00-5.40); Red Cell Distribution Width 16 % (10.5-15); White Blood Count 12.5 10^3/ul (3.5-10.8)
[2018-06-21 06:29] LABS: EGFR Non-African American 146.4 (>60)
[2018-06-21] MEDS: Heparin VIAL(*) 5000 UNITS/ML VIAL (FIVE THOUSAND) SUBCUT SCH ×3 (06:39→20:57)
--- NOTE | 2018-06-21 08:13 | PN ---
Progress Note - Progress Note Date of Service: 06/21/18 Note: Surgery Mr. Polk is resting in bed with family in room. He denies abdominal pain. His reports he is still "foggy", and she is worried about his lungs saying that usually he is out of bed in his chair everyday. PE: Vital Signs 06/20/18 06/20/18 06/20/18 08:16 08:31 09:00 Temperature 99.0 F Pulse Rate 87 87 Respiratory 22 17 Rate Blood Pressure 110/46 (mmHg) O2 Sat by Pulse 94 94 Oximetry 06/20/18 06/20/18 06/20/18 09:01 09:31 10:00 Temperature Pulse Rate 89 87 89 Respiratory 12 9 12 Rate Blood Pressure 104/47 99/44 (mmHg) O2 Sat by Pulse 93 94 94 Oximetry 06/20/18 06/20/18 06/20/18 10:01 10:31 11:00 Temperature Pulse Rate 88 87 98 Respiratory 12 12 12 Rate Blood Pressure 111/44 97/45 (mmHg) O2 Sat by Pulse 95 94 85 Oximetry 06/20/18 06/20/18 06/20/18 11:01 11:31 12:00 Temperature 98.5 F Pulse Rate 98 97 92 Respiratory 22 17 20 Rate Blood Pressure 120/51 116/51 (mmHg) O2 Sat by Pulse 85 92 94 Oximetry 06/20/18 06/20/18 06/20/18 12:01 12:31 13:00 Temperature Pulse Rate 91 89 87 Respiratory 25 25 14 Rate Blood Pressure 121/45 105/42 (mmHg) O2 Sat by Pulse 93 94 95 Oximetry 06/20/18 06/20/18 06/20/18 13:01 13:31 14:00 Temperature Pulse Rate 88 89 89 Respiratory 14 16 18 Rate Blood Pressure 115/48 115/52 (mmHg) O2 Sat by Pulse 95 93 96 Oximetry 06/20/18 06/20/18 06/20/18 14:01 14:31 15:00 Temperature Pulse Rate 88 91 95 Respiratory 7 22 23 Rate Blood Pressure 109/48 118/51 (mmHg) O2 Sat by Pulse 96 95 92 Oximetry 06/20/18 06/20/18 06/20/18 15:01 15:31 16:00 Temperature 98.5 F Pulse Rate 96 96 94 Respiratory 21 17 23 Rate Blood Pressure 118/58 125/54 (mmHg) O2 Sat by Pulse 92 91 95 Oximetry 06/20/18 06/20/18 06/20/18 16:01 16:31 17:00 Temperature Pulse Rate 94 91 91 Respiratory 24 19 14 Rate Blood Pressure 116/50 112/49 (mmHg) O2 Sat by Pulse 95 95 95 Oximetry 06/20/18 06/20/18 06/20/18 17:01 17:31 18:00 Temperature Pulse Rate 90 95 94 Respiratory 24 25 18 Rate Blood Pressure 121/49 120/48 (mmHg) O2 Sat by Pulse 96 93 94 Oximetry 06/20/18 06/20/18 06/20/18 18:01 18:31 19:00 Temperature Pulse Rate 93 94 92 Respiratory 20 18 22 Rate Blood Pressure 118/53 118/61 (mmHg) O2 Sat by Pulse 95 94 95 Oximetry 06/20/18 06/20/18 06/20/18 19:01 19:30 19:31 Temperature Pulse Rate 93 91 Respiratory 22 20 25 Rate Blood Pressure 129/53 138/50 (mmHg) O2 Sat by Pulse 94 94 92 Oximetry 06/20/18 06/20/18 06/20/18 19:50 20:00 20:01 Temperature 98.5 F Pulse Rate 93 93 Respiratory 25 24 Rate Blood Pressure 133/51 (mmHg) O2 Sat by Pulse 93 93 Oximetry 06/20/18 06/20/18 06/20/18 20:31 21:00 21:01 Temperature Pulse Rate 92 92 92 Respiratory 24 20 23 Rate Blood Pressure 120/51 123/52 (mmHg) O2 Sat by Pulse 95 95 95 Oximetry 06/20/18 06/20/18 06/20/18 21:11 21:31 22:00 Temperature Pulse Rate 82 82 Respiratory 24 20 15 Rate Blood Pressure 111/48 (mmHg) O2 Sat by Pulse 96 95 Oximetry 06/20/18 06/20/18 06/20/18 22:01 22:31 23:00 Temperature Pulse Rate 83 83 81 Respiratory 20 20 5 Rate Blood Pressure 109/48 112/46 (mmHg) O2 Sat by Pulse 95 95 96 Oximetry 06/20/18 06/20/18 06/20/18 23:01 23:08 23:31 Temperature 97.8 F Pulse Rate 78 95 Respiratory 20 25 Rate Blood Pressure 102/55 133/58 (mmHg) O2 Sat by Pulse 96 93 Oximetry 06/20/18 06/21/18 06/21/18 23:45 00:00 00:01 Temperature Pulse Rate 94 94 92 Respiratory 25 25 24 Rate Blood Pressure 135/56 (mmHg) O2 Sat by Pulse 94 93 93 Oximetry 06/21/18 06/21/18 06/21/18 00:31 00:56 01:00 Temperature Pulse Rate 93 90 Respiratory 24 20 Rate Blood Pressure 133/51 (mmHg) O2 Sat by Pulse 94 93 94 Oximetry 06/21/18 06/21/18 06/21/18 01:01 01:31 02:00 Temperature Pulse Rate 96 82 92 Respiratory 24 20 22 Rate Blood Pressure 132/62 116/47 (mmHg) O2 Sat by Pulse 94 95 95 Oximetry 06/21/18 06/21/18 06/21/18 02:01 02:31 03:00 Temperature Pulse Rate 96 89 83 Respiratory 24 22 21 Rate Blood Pressure 113/71 126/73 (mmHg) O2 Sat by Pulse 94 95 94 Oximetry 06/21/18 06/21/18 06/21/18 03:01 03:26 03:31 Temperature 98.0 F Pulse Rate 84 92 Respiratory 21 12 Rate Blood Pressure 124/52 94/57 (mmHg) O2 Sat by Pulse 95 89 Oximetry 06/21/18 06/21/18 06/21/18 03:45 04:00 04:01 Temperature Pulse Rate 91 83 81 Respiratory 24 17 17 Rate Blood Pressure 128/54 (mmHg) O2 Sat by Pulse 94 91 92 Oximetry 06/21/18 06/21/18 06/21/18 04:48 05:00 05:01 Temperature Pulse Rate 93 92 91 Respiratory 15 0 17 Rate Blood Pressure 139/57 128/52 (mmHg) O2 Sat by Pulse 96 96 96 Oximetry 06/21/18 06/21/18 06/21/18 05:31 06:00 06:01 Temperature Pulse Rate 82 94 95 Respiratory 22 21 15 Rate Blood Pressure 119/57 119/85 (mmHg) O2 Sat by Pulse 95 95 95 Oximetry 06/21/18 06/21/18 06:31 08:00 Temperature 98.8 F Pulse Rate 97 Respiratory 23 Rate Blood Pressure 126/66 (mmHg) O2 Sat by Pulse 95 Oximetry General: obese male with flat affect HEENT: injected, but non-icteric sclerae abd: good BS, obese, soft, non-tender to deep palpation in RUQ Intake & Output 06/20/18 06/21/18 06/21/18 22:59 06:59 14:59 Intake Total 314 141 Output Total 640 540 Balance -326 -399 Weight 277 lb 12.519 oz Intake: IV Fluids 14 47 NS 14 NS (0.9%) 47 IVPB 60 94 ABX - ZOSYN 60 94 Oral 240 Output: [place] 640 540 Laboratory Results - last 24 hr 06/21/18 06/21/18 05:55 05:55 WBC 12.5 H RBC 4.41 Hgb 12.6 L Hct 39 L MCV 87 MCH 29 MCHC 33 RDW 16 H Plt Count 210 MPV 8.7 Neut % (Auto) 92.7 H Lymph % (Auto) 1.0 L [place] % (Auto) 5.7 Eos % (Auto) 0.1 Baso % (Auto) 0.5 Absolute Neuts (auto) 11.6 H Absolute Lymphs (auto) 0.1 L Absolute Monos (auto) 0.7 Absolute Eos (auto) 0 Absolute Basos (auto) 0.1 Absolute Nucleated RBC 0 Nucleated RBC % 0.1 Sodium 142 Potassium 4.1 Chloride 106 Carbon Dioxide 28 Anion Gap 8 BUN 36 H Creatinine 0.55 L Est GFR ( Amer) 177.2 Est GFR (Non-Af Amer) 146.4 BUN/Creatinine Ratio 65.5 H Glucose 154 H Calcium 8.5 L Magnesium 2.2 Total Bilirubin 0.90 AST 33 ALT 123 H Alkaline Phosphatase 118 H Total Protein 5.8 L Albumin 3.2 Globulin 2.6 Albumin/Globulin Ratio 1.2 A/P: Improving cholelithiasis vs. cholangitis on abx. TB/LFTs normal or approaching normal; Continue abx per hospitalist service. Respiratory management per hospitalist.
--- NOTE | 2018-06-21 08:49 | RAD ---
Indication: Hypoxia. Single frontal view of the chest performed at 0548 hours was reviewed. Comparison is made with previous exam dated June 18, 2018. Cardiomegaly is noted. Increased interstitial edema with alveolar infiltrates are noted in the lung bases. This has progressed since previous exam. IMPRESSION: INCREASED INTERSTITIAL EDEMA AND BIBASILAR AIRSPACE DISEASE. R1
[2018-06-21] MEDS ORDERED: Furosemide IV* 10 MG/ML VIAL (40 MG) IV SLOW PU ONE (08:50)
--- NOTE | 2018-06-21 09:09 | PN ---
Date of Service: 06/21/18 Critical Care Services: 72M with htn, gerd, h/o LBBB, ALS presents with AMS that started yesterday. The patient was brought to the ER and was found to have leukocytosis and abnormal LFTs. He was hypotensive and started on if fluids and antibiotics. 06/19: Mental status somewhat improved as per family. BP remains low. 06/20: Mental status and lab work improving. 06/21: Hypoxic overnight now on HFNC. Family now says patient uses home ventilator when he sleeps and will bring in today. CXR showing volume overload and atelectasis. Labwork near normal. Vital Signs: Temp Pulse Resp BP SpO2 FiO2 98.8 F 92 26 131/51 95 100 06/21/18 08:00 06/21/18 08:31 06/21/18 08:31 06/21/18 08:31 06/21/18 08:31 06/21 08:00 Physical Exam: Gen - NAD, Obese HEENT - NCAT, EOMI Neck - No JVD CV - s1/s2, no murmur Lungs - +ronchi, crackeles at bases Abd - soft, nt, Ext - contracted, worsening edema Neuro - answers questions slowly, does not move extremities Fluid Balance (Past 24 Hours): I= O= Net Intake & Output 06/19/18 06/20/18 06/21/18 06/22/18 06:59 06:59 06:59 06:59 Intake Total 5247 3441 1354 Output Total 7472 811 8182 25 Balance 3812 2596 -1006 -25 Weight 121 kg 124.7 kg 126 kg Intake: IV Fluids 2458 1667 446 LR 258 1503 362 NS 164 37 NS (0.9%) 47 IVPB 2664 1549 308 ABX - VANCOMYCIN 310 ABX - ZOSYN 154 LR 1390 1123 NS 1274 116 154 Medicated IV 125 225 zosyn 125 225 Oral 0 0 600 Output: [place] 0793 061 9139 25 Residual 300 Byers 16 Fr 300 Labs: Laboratory Results - last 24 hr 06/21/18 06/21/18 05:55 05:55 WBC 12.5 H RBC 4.41 Hgb 12.6 L Hct 39 L MCV 87 MCH 29 MCHC 33 RDW 16 H Plt Count 210 MPV 8.7 Neut % (Auto) 92.7 H Lymph % (Auto) 1.0 L [place] % (Auto) 5.7 Eos % (Auto) 0.1 Baso % (Auto) 0.5 Absolute Neuts (auto) 11.6 H Absolute Lymphs (auto) 0.1 L Absolute Monos (auto) 0.7 Absolute Eos (auto) 0 Absolute Basos (auto) 0.1 Absolute Nucleated RBC 0 Nucleated RBC % 0.1 Sodium 142 Potassium 4.1 Chloride 106 Carbon Dioxide 28 Anion Gap 8 BUN 36 H Creatinine 0.55 L Est GFR ( Amer) 177.2 Est GFR (Non-Af Amer) 146.4 BUN/Creatinine Ratio 65.5 H Glucose 154 H Calcium 8.5 L Magnesium 2.2 Total Bilirubin 0.90 AST 33 ALT 123 H Alkaline Phosphatase 118 H Total Protein 5.8 L Albumin 3.2 Globulin 2.6 Albumin/Globulin Ratio 1.2 Studies: CXR 06/21 IMPRESSION: INCREASED INTERSTITIAL EDEMA AND BIBASILAR AIRSPACE DISEASE. CXR 06/18 IMPRESSION: EXPIRATORY EXAMINATION. CT abd/pel 06/18 IMPRESSION: 1. There is pathologic dilatation of the gallbladder measuring up to 6.1 cm in diameter. Please correlate to signs or symptoms of acute cholecystitis and/or biliary obstruction. If clinically warranted superior characterization can be made with right upper quadrant ultrasound. 2. Small bibasilar pleural effusions and linear density most consistent with atelectasis. 3. Multiple low-attenuation structures in the bilateral kidneys, most of which have Hounsfield unit measurements consistent with simple cysts while others consistent negative attenuation indicating the presence of fat. There is no hydronephrosis. Recommend further characterization with nonemergent ultrasound. 4. There is low-attenuation replacement of the L3 vertebral body extending to the L1 and L2 vertebral bodies. The chronicity of this is unknown but could be related to prior traumatic injury resulting in the patient's reported paraplegia. Alternatively, this could be the result of infection in a patient with sepsis. 5. Contrast presumably injected into the left upper extremity is seen refluxing in the superficial veins of the left abdomen suggesting the presence of central venous obstruction or stenosis. 6. Infiltration of the subcutaneous fat overlying the bilateral low abdomen and extending to the buttocks could be consistent with anicteric/fluid overload which would also correlate to the small bibasilar pleural effusions. 7. There are additional chronic, degenerative and iatrogenic findings described in the body the report. Brain CT 06/18 IMPRESSION: #. Limited exam as noted. #. No gross evidence for intracranial hemorrhage. #. No gross evidence for mass effect. #. Negative for hydrocephalus. Cervical Spine CT 06/18 IMPRESSION: 1. DEGENERATIVE CHANGES OF THE CERVICAL SPINE WITHOUT DEFINITE EVIDENCE FOR FRACTURE OR DISLOCATION. 2. There is a low-attenuation partially calcified structure at the left lower neck suspected to be the thyroid gland. As clinically warranted superior characterization of the thyroid can be made with ultrasound. Gallbladder US 06/19 IMPRESSION: #. Limited exam as noted. #. Hepatosteatosis. #. Distended gallbladder with cholelithiasis. Negative for gallbladder wall thickening, pericholecystic fluid, or sonographic Napoles sign to strongly favor acute cholecystitis. Impression: 72M with htn, gerd, ALS, presents with AMS 2/2 severe sepsis 2/2 biliary obstruction. Acute on chronic respiratory failure. Plan: Neuro - AMS, ALS - AMS 2/2 sepsis - improving - ALS - PT consult for ROM exercises CV - hypotension - 2/2 sepsis - improved - now with iatrogenic volume overload - lasix 40 iv now - check tte Pulm - acute on chronic respiratory failure - 2/2 ALS and iatrogenic volume overload - family to bring in home LTV vent - chest pt - nebs prn - diuresis ID - severe sepsis - 2/2 biliary obstruction - improving - lfts near normal - cultures and lactate neg - c/w vanco zosyn (day 3 of 7) GI - biliary obstruction - likely has passed a gall stone - ct showing dilated gallbladder - RUQ sono distended gallbladder but no wall thickening or pericholecystic fluid - GI defers ERCP - Surgery to re-evaluate as an outpatient for cholecystectomy - advance diet as tolerated Renal - sirisha - 2/2 sepsis - resolved - monitor lytes - strict i/o Heme - monitor cbc Endo - check fs, niss Lines - piv, byers PPx - gi/dvt Full Code Critical Care Time: 50 mins
[2018-06-21] MEDS: Baclofen TAB* 20 MG PO SCH ×2 (09:10→20:36)
[2018-06-21] MEDS: Sertraline* 100 MG TAB PO SCH (09:10)
[2018-06-21] MEDS: Omeprazole CAP* 20 MG PO SCH (10:46)
[2018-06-21] MEDS: Piperacillin/Tazobac ADVAN(*) 3.375 GM in NS 0.9% 50 ML* 50 ML IVPB SCH ×2 (12:20→20:35)
[2018-06-21] MEDS ORDERED: Vancomycin Trough Check NOTE FOLLOW UP ONE (13:30)
[2018-06-21] MEDS: Vancomycin(*) 1,500 MG in NS 0.9% 250 ML* 250 ML IVPB SCH (15:34)
[2018-06-21] MEDS: Lactobacillus Acidophilus* 1 TAB PO SCH ×2 (15:34→20:36)
[2018-06-21] MEDS: Vancomycin(*) 1,000 MG in NS 0.9% 250 ML* 250 ML IVPB SCH (23:57)
[2018-06-22] MEDS: Piperacillin/Tazobac ADVAN(*) 3.375 GM in NS 0.9% 50 ML* 50 ML IVPB SCH ×3 (05:05→20:36)
[2018-06-22] MEDS: Heparin VIAL(*) 5000 UNITS/ML VIAL (FIVE THOUSAND) SUBCUT SCH ×3 (05:07→23:20)
[2018-06-22 05:24] LABS: ABS Basophils 0 10^3/ul (0-0.2); ABS Eosinophils 0 10^3/ul (0-0.6); ABS Lymphocytes 0.1 10^3/ul (1.0-4.8); ABS Monocytes 0.7 10^3/ul (0-0.8); ABS Neutrophils 9.2 10^3/ul (1.5-7.7); ABS Nucleated RBC 0 10^3/ul; Eosinophil % 0.2 % (0-6); Hematocrit 37 % (42-52); Hemoglobin 11.8 g/dl (14.0-18.0); Lymphocyte % 1.2 % (25-47); Mean Corpuscular HGB Conc 32 g/dl (31-36); Mean Corpuscular Hemoglobin 28 pg (27-31); Mean Corpuscular Volume 87 fL (80-94); Mean Platelet Volume 8.8 um3 (7.4-10.4); Nucleated Red Blood Cells % 0; Platelet Count 198 10^3/ul (150-450); Red Blood Count 4.19 10^6/ul (4.00-5.40); Red Cell Distribution Width 16 % (10.5-15); White Blood Count 10.1 10^3/ul (3.5-10.8)
[2018-06-22 05:50] LABS: EGFR Non-African American 189.4 (>60)
[2018-06-22] MEDS ORDERED: Potassium Chlor TAB* 20 MEQ TAB.ER PO ONE ×2 (07:30→11:30)
[2018-06-22] MEDS ORDERED: Furosemide IV* 10 MG/ML VIAL (40 MG) IV SLOW PU ONE (07:52)
[2018-06-22] MEDS ORDERED: KCL 20 MEQ/100 ML IVPREMIX* 20 MEQ/100 ML BAG IV ONE (08:00)
[2018-06-22] MEDS ORDERED: Perflutren Lipid Microsphere* 3 ML VIAL ONE (08:00)
--- NOTE | 2018-06-22 08:04 | RAD ---
HISTORY: chf COMPARISONS: June 21, 2018 VIEWS: 1: frontal portable view of the chest at 6:45 AM . Evaluation is limited secondary to patient head position. FINDINGS: LINES AND TUBES: None. CARDIOMEDIASTINAL SILHOUETTE: The cardiac mediastinal silhouette is essentially obscured. PLEURA: The costophrenic angles are sharp. No pleural abnormalities are noted. LUNG PARENCHYMA: The lung volumes are low. There is diffuse pattern of reticular opacification. There is, and alveolar opacification of the right mid and lower lung mclean. ABDOMEN: The upper abdomen is clear. There is no subphrenic gas. BONES AND SOFT TISSUES: No bone or soft tissue abnormalities are noted. IMPRESSION: 1. MARKEDLY LIMITED STUDY. 2. LOW LUNG VOLUMES. 3. PULMONARY INTERSTITIAL EDEMA. 4. RIGHT MID AND LOWER LUNG CONSOLIDATION.
--- NOTE | 2018-06-22 08:42 | PN ---
Date of Service: 06/22/18 Critical Care Services: 72M with htn, gerd, h/o LBBB, ALS presents with AMS that started yesterday. The patient was brought to the ER and was found to have leukocytosis and abnormal LFTs. He was hypotensive and started on if fluids and antibiotics. 06/19: Mental status somewhat improved as per family. BP remains low. 06/20: Mental status and lab work improving. 06/21: Hypoxic overnight now on HFNC. Family now says patient uses home ventilator when he sleeps and will bring in today. CXR showing volume overload and atelectasis. Labwork near normal. 06/22: Patient remains confused. LFTs slightly worse this am. Episodes of atrial tachycardia overnight but asymptomatic. requesting neurology evaluation. Vital Signs: Temp Pulse Resp BP SpO2 FiO2 98.7 F 83 25 131/54 96 100 06/22/18 08:00 06/22/18 08:01 06/22/18 08:01 06/22/18 08:01 06/22/18 08:01 06/22 07:53 Physical Exam: Gen - NAD, Obese HEENT - NCAT, EOMI Neck - No JVD CV - s1/s2, no murmur Lungs - +ronchi, crackeles at bases Abd - soft, nt, Ext - contracted, improved edema Neuro - answers questions slowly, does not move extremities Fluid Balance (Past 24 Hours): I= O= Net Intake & Output 06/20/18 06/21/18 06/22/18 06/23/18 06:59 06:59 06:59 06:59 Intake Total 3441 1354 1680 Output Total 845 2360 3150 75 Balance 2596 -1006 -1470 -75 Weight 124.7 kg 126 kg 116.7 kg Intake: IV Fluids 1667 446 227 ABX - ZOSYN 72 LR 1503 362 NS 164 37 NS (0.9%) 47 155 IVPB 1549 308 653 ABX - VANCOMYCIN 310 428 ABX - ZOSYN 154 225 LR 1123 NS 116 154 Medicated IV 225 zosyn 225 Oral 0 600 800 Output: [place] 845 2360 3150 75 Other: Date of Last Bowel 06/21 Movement # Bowel Movements 2 Estimated Stool Amount Small Labs: Laboratory Results - last 24 hr 06/21/18 06/22/18 06/22/18 14:45 05:10 05:10 WBC 10.1 RBC 4.19 Hgb 11.8 L Hct 37 L MCV 87 MCH 28 MCHC 32 RDW 16 H Plt Count 198 MPV 8.8 Neut % (Auto) 91.1 H Lymph % (Auto) 1.2 L [place] % (Auto) 7.4 H Eos % (Auto) 0.2 Baso % (Auto) 0.1 Absolute Neuts (auto) 9.2 H Absolute Lymphs (auto) 0.1 L Absolute Monos (auto) 0.7 Absolute Eos (auto) 0 Absolute Basos (auto) 0 Absolute Nucleated RBC 0 Nucleated RBC % 0 Sodium 144 Potassium 3.4 L Chloride 106 Carbon Dioxide 31 Anion Gap 7 BUN 35 H Creatinine 0.44 L Est GFR ( Amer) 229.2 Est GFR (Non-Af Amer) 189.4 BUN/Creatinine Ratio 79.5 H Glucose 152 H Calcium 8.4 L Magnesium 2.1 Total Bilirubin 1.10 H Direct Bilirubin 0.40 H Indirect Bilirubin 0.7 AST 47 H ALT 116 H Alkaline Phosphatase 114 H Total Protein 5.4 L Albumin 2.9 L Globulin 2.5 Albumin/Globulin Ratio 1.2 Vancomycin Trough 10.1 Studies: CXR 06/22 IMPRESSION: 1. MARKEDLY LIMITED STUDY. 2. LOW LUNG VOLUMES. 3. PULMONARY INTERSTITIAL EDEMA. 4. RIGHT MID AND LOWER LUNG CONSOLIDATION. CXR 06/21 IMPRESSION: INCREASED INTERSTITIAL EDEMA AND BIBASILAR AIRSPACE DISEASE. CXR 06/18 IMPRESSION: EXPIRATORY EXAMINATION. CT abd/pel 06/18 IMPRESSION: 1. There is pathologic dilatation of the gallbladder measuring up to 6.1 cm in diameter. Please correlate to signs or symptoms of acute cholecystitis and/or biliary obstruction. If clinically warranted superior characterization can be made with right upper quadrant ultrasound. 2. Small bibasilar pleural effusions and linear density most consistent with atelectasis. 3. Multiple low-attenuation structures in the bilateral kidneys, most of which have Hounsfield unit measurements consistent with simple cysts while others consistent negative attenuation indicating the presence of fat. There is no hydronephrosis. Recommend further characterization with nonemergent ultrasound. 4. There is low-attenuation replacement of the L3 vertebral body extending to the L1 and L2 vertebral bodies. The chronicity of this is unknown but could be related to prior traumatic injury resulting in the patient's reported paraplegia. Alternatively, this could be the result of infection in a patient with sepsis. 5. Contrast presumably injected into the left upper extremity is seen refluxing in the superficial veins of the left abdomen suggesting the presence of central venous obstruction or stenosis. 6. Infiltration of the subcutaneous fat overlying the bilateral low abdomen and extending to the buttocks could be consistent with anicteric/fluid overload which would also correlate to the small bibasilar pleural effusions. 7. There are additional chronic, degenerative and iatrogenic findings described in the body the report. Brain CT 06/18 IMPRESSION: #. Limited exam as noted. #. No gross evidence for intracranial hemorrhage. #. No gross evidence for mass effect. #. Negative for hydrocephalus. Cervical Spine CT 06/18 IMPRESSION: 1. DEGENERATIVE CHANGES OF THE CERVICAL SPINE WITHOUT DEFINITE EVIDENCE FOR FRACTURE OR DISLOCATION. 2. There is a low-attenuation partially calcified structure at the left lower neck suspected to be the thyroid gland. As clinically warranted superior characterization of the thyroid can be made with ultrasound. Gallbladder US 06/19 IMPRESSION: #. Limited exam as noted. #. Hepatosteatosis. #. Distended gallbladder with cholelithiasis. Negative for gallbladder wall thickening, pericholecystic fluid, or sonographic Napoles sign to strongly favor acute cholecystitis. Impression: 72M with htn, gerd, ALS, presents with AMS 2/2 severe sepsis 2/2 biliary obstruction. Acute on chronic respiratory failure. Asymptomatic atrial tachycardia. Plan: Neuro - AMS, ALS - AMS 2/2 sepsis - requests neuro eval - will check head ct - ALS - PT consult for ROM exercises CV - hypotension, atrial tachycardia - hypotension - resolved - atrial tachy 2/2 being off coreg - restart today - tte pending - c/w diuresis for volume overload Pulm - acute on chronic respiratory failure - 2/2 ALS and iatrogenic volume overload - c/w home vent - chest pt, cough assist - nebs prn - c/w diursesis ID - severe sepsis - 2/2 biliary obstruction - improving - lfts slightly worse today - cultures and lactate neg - c/w vanco zosyn (day 4 of 7) GI - biliary obstruction - likely has passed a gall stone - ct showing dilated gallbladder - RUQ sono distended gallbladder but no wall thickening or pericholecystic fluid - GI defers ERCP - Surgery to re-evaluate as an outpatient for cholecystectomy - advance diet as tolerated Renal - sirisha, hypkalemia - 2/2 sepsis - resolved - monitor lytes - strict i/o - replete potassium Heme - monitor cbc Endo - check fs, niss Lines - piv, byers PPx - gi/dvt Full Code Critical Care Time: 55 mins
[2018-06-22] MEDS: Baclofen TAB* 20 MG PO SCH ×2 (08:47→20:37)
[2018-06-22] MEDS: Sertraline* 100 MG TAB PO SCH (08:47)
[2018-06-22] MEDS: Lactobacillus Acidophilus* 1 TAB PO SCH ×2 (08:47→20:37)
[2018-06-22] MEDS: Omeprazole CAP* 20 MG PO SCH (08:47)
[2018-06-22] MEDS: Carvedilol TAB* 6.25 MG PO SCH ×2 (08:51→20:37)
[2018-06-22] MEDS ORDERED: QUEtiapine TAB* 25 MG PO ONE (09:15)
[2018-06-22] MEDS ORDERED: Metoprolol Tartrate IV* 1 MG/ML 5 ML VIAL IV ONE (09:17)
[2018-06-22] MEDS ORDERED: Metoprolol Tartrate IV* 1 MG/ML 5 ML VIAL ONE (09:20)
--- NOTE | 2018-06-22 10:34 | PN ---
Progress Note - Progress Note Date of Service: 06/22/18 SOAP: Subjective: Pt seen and examined. Rounded with CCM team. Pt has no appetite, tolerating liquids. No vomiting, denies Nausea. more confused back pain resolved. Diuresed yesterday Objective: Temp Pulse Resp BP Pulse Ox 98.7 F 83 25 131/54 96 06/22/18 08:00 06/22/18 08:01 06/22/18 08:01 06/22/18 08:01 06/22/18 08:01 Intake & Output 06/21/18 06/22/18 06/22/18 22:59 06:59 14:59 Intake Total 455 923 Output Total 415 485 75 Balance 40 438 -75 Weight 257 lb 4.471 oz awake, follows commands. abdo: soft/ ND, tender on deep palpation in epigastrum, no palp masses ext: edematous labs noted wbc down ammonia increased Assessment: hepatocellular vs biliary dz, favor biliary. resolving cholangitis vs cholecystitis Plan: HIDA scan recommended- will help differentiate hepatocellur and biliary, as well as recognize obstructed cytic duct or CBD if obst cystic duct, recommend percutaneous cholecystostomy abx will follow
[2018-06-22] MEDS: Vancomycin(*) 1,000 MG in NS 0.9% 250 ML* 250 ML IVPB SCH (12:03)
[2018-06-22 14:54] LABS: EGFR Non-African American 171.3 (>60)
--- NOTE | 2018-06-22 15:53 | ECHO ---
Patient: MATT CISSE [facility] Rec#: [id number] : 1945 Date: 06/22/2018 Age: 72y Height: 183 cm / 72.0 in Weight: 123 kg / 271.1 lbs Sex: M BSA: 2.43 Room#: [facility] Admit Date#: 06/18/2018 Type: Inpatient Referring: Jabari Gonsalves DO Reading: Pio Tse MD Well Tester: Conchis Mason RDCS CC: Yuri Daniels MD Transthoracic Echocardiogram Indication: CHF, sepsis, hypotension. BP: 132/53 HR: 83 Rhythm: NSR Findings History: ALS, quadriplegic, LBBB, HTN, obesity. Technical Comments: The study is technically limited due to patient body habitus. Completed at 0930. Left Ventricle: The left ventricular chamber size is normal. There is no left ventricular hypertrophy. Unable to estimate left ventricular ejection fraction. The endocardium is not well visualized.Baseline LBBB. LV systolic function probably low normal to borderline reduced. There is septal flattening of the interventricular septum consistent with right ventricular volume or pressure overload. There is a left ventricular septal wall motion abnormality observed, possibly due to the presence of a left bundle branch block. Abnormal left ventricular diastolic function is observed. Abnormal left ventricular diastolic filling is observed, consistent with impaired relaxation. Left Atrium: The left atrium is moderately dilated. Right Ventricle: Moderator Band present. The right ventricle is moderate to severely dilated. The right ventricular global systolic function is moderately reduced. Right Atrium: The right atrial cavity size is severely dilated. Aortic Valve: The aortic valve is trileaflet. The aortic valve leaflets are mildly thickened. There is a trace of aortic regurgitation. There is no evidence of aortic stenosis. Mitral Valve: The mitral valve leaflets are mildly thickened. There is trace to mild mitral regurgitation. There is no evidence of mitral stenosis. Tricuspid Valve: The tricuspid valve leaflets are normal. There is moderate tricuspid regurgitation. The right ventricular systolic pressure is estimated at 57 mmHg. There is evidence of moderate pulmonary hypertension. There is no tricuspid stenosis. Pulmonic Valve: The pulmonic valve appears normal. There is trace to mild pulmonic regurgitation. There is no pulmonic stenosis. Pericardium: There is no significant pericardial effusion. A pericardial fat pad is visualized. Aorta: There is moderate dilatation of the ascending aorta. There is mild dilatation of the aortic root. Pulmonary Artery: The main pulmonary artery appears normal. Venous: The inferior vena cava is not visualized. Contrast: Definity was used to optimize study. 3 mL of diluted Definity were utilized. Intravenous contrast was used to enhance endocardial border definition. Summary: There was not any prior study for comparison. Conclusions The left ventricular chamber size is normal. Unable to estimate left ventricular ejection fraction. The endocardium is not well visualized.Baseline LBBB. LV systolic function probably low normal to borderline reduced. There is septal flattening of the interventricular septum consistent with right ventricular volume or pressure overload. There is a left ventricular septal wall motion abnormality observed, possibly due to the presence of a left bundle branch block. Abnormal left ventricular diastolic function is observed. The left atrium is moderately dilated. The right ventricle is moderate to severely dilated. The right atrial cavity size is severely dilated. There is a trace of aortic regurgitation. There is trace to mild mitral regurgitation. There is moderate tricuspid regurgitation. The right ventricular systolic pressure is estimated at 57 mmHg. There is evidence of moderate pulmonary hypertension. There is trace to mild pulmonic regurgitation. There is moderate dilatation of the ascending aorta. There is mild dilatation of the aortic root. Measurements Name Value Normal Range RVIDd (AP) 2D 3.5 cm (0.9 - 2.6) RVDdMajor (2D) 6 cm (2.2 - 4.4) RAd ISD 4CH 6.4 cm (3.4 - 4.9) RA (A4C)W 6.1 cm (2.9 - 4.6) IVSd (2D) 1 cm (0.6 - 1) LVPWd (2D) 0.9 cm (0.6 - 1) LVIDd (2D) 5 cm (3.6 - 5.4) LVIDs (2D) 3.3 cm - LV FS (2D) 33 % (25 - 45) Aortic Annulus 2.4 cm (1.4 - 2.6) Ao root diameter (2D) 3.8 cm (2.1 - 3.5) Ascending Ao 4.4 cm (2.1 - 3.4) LA dimension (AP) 2D 3.5 cm (2.3 - 3.8) LAd ISD 4CH 7.3 cm (2.9 - 5.3) LA ISD 4CH W 5.7 cm (2.5 - 4.5) Name Value Normal Range LA ESV BP (A/L) index 38 ml/m2 - Name Value Normal Range MV E-wave Vmax 0.7 m/sec - MV deceleration time 250 msec - MV A-wave Vmax 0.9 m/sec - MV E:A ratio 0.8 ratio - LV septal e' Vmax 0.06 m/sec - LV lateral e' Vmax 0.1 m/sec - LV E:e' septal ratio 11.67 ratio - LV E:e' lateral ratio 7 ratio - Name Value Normal Range AV Vmax 1.4 m/sec - AV VTI 23.2 cm - AV peak gradient 8 mmHg - AV mean gradient 4 mmHg - LVOT Vmax 0.9 m/sec - LVOT VTI 19.6 cm - LVOT peak gradient 3 mmHg - LVOT mean gradient 2 mmHg - Name Value Normal Range TR Vmax 3.5 m/sec - TR peak gradient 49 mmHg - RAP 8 mmHg - RVSP 57 mmHg - Name Value Normal Range PV Vmax 1.2 m/sec - PV peak gradient 5 mmHg -
[2018-06-23] MEDS: Vancomycin(*) 1,000 MG in NS 0.9% 250 ML* 250 ML IVPB SCH ×2 (00:15→14:31)
[2018-06-23] MEDS: Piperacillin/Tazobac ADVAN(*) 3.375 GM in NS 0.9% 50 ML* 50 ML IVPB SCH ×2 (04:19→12:11)
[2018-06-23 05:31] LABS: ABS Basophils 0 10^3/ul (0-0.2); ABS Eosinophils 0 10^3/ul (0-0.6); ABS Lymphocytes 0.1 10^3/ul (1.0-4.8); ABS Monocytes 0.7 10^3/ul (0-0.8); ABS Neutrophils 7.1 10^3/ul (1.5-7.7); ABS Nucleated RBC 0 10^3/ul; Eosinophil % 0.2 % (0-6); Hematocrit 37 % (42-52); Lymphocyte % 1.8 % (25-47); Mean Corpuscular HGB Conc 33 g/dl (31-36); Mean Corpuscular Hemoglobin 28 pg (27-31); Mean Corpuscular Volume 87 fL (80-94); Mean Platelet Volume 8.7 um3 (7.4-10.4); Nucleated Red Blood Cells % 0.1; Platelet Count 176 10^3/ul (150-450); Red Blood Count 4.24 10^6/ul (4.00-5.40); Red Cell Distribution Width 16 % (10.5-15)
[2018-06-23 05:49] LABS: EGFR Non-African American 194.5 (>60)
[2018-06-23] MEDS: Heparin VIAL(*) 5000 UNITS/ML VIAL (FIVE THOUSAND) SUBCUT SCH ×3 (07:28→22:15)
--- NOTE | 2018-06-23 08:32 | PN ---
Date of Service: 06/23/18 Critical Care Services: 72M with htn, gerd, h/o LBBB, ALS presents with AMS that started yesterday. The patient was brought to the ER and was found to have leukocytosis and abnormal LFTs. He was hypotensive and started on if fluids and antibiotics. 06/19: Mental status somewhat improved as per family. BP remains low. 06/20: Mental status and lab work improving. 06/21: Hypoxic overnight now on HFNC. Family now says patient uses home ventilator when he sleeps and will bring in today. CXR showing volume overload and atelectasis. Labwork near normal. 06/22: Patient remains confused. LFTs slightly worse this am. Episodes of atrial tachycardia overnight but asymptomatic. requesting neurology evaluation. 06/23: Labwork continues to improve. Diuresed over the past 3 days. TTE with evidence of pulm htn. Patient continues to require home vent with supplemental o2. Vital Signs: Temp Pulse Resp BP SpO2 FiO2 98.2 F 75 18 148/72 94 100 06/23/18 07:55 06/23/18 07:01 06/23/18 08:00 06/23/18 07:01 06/23/18 07:01 06/23 04:00 Physical Exam: Gen - NAD, Obese HEENT - NCAT, EOMI Neck - No JVD CV - s1/s2, no murmur Lungs - +ronchi, crackeles at bases Abd - soft, nt, Ext - contracted, improved edema Neuro - answers questions slowly, does not move extremities Fluid Balance (Past 24 Hours): I= O= Net Intake & Output 06/21/18 06/22/18 06/23/18 06/24/18 06:59 06:59 06:59 06:59 Intake Total 1354 1680 998 Output Total 2360 3150 2085 75 Balance -1006 -1470 -1087 -75 Weight 126 kg 116.7 kg 124.6 kg Intake: IV Fluids 446 227 768 ABX - VANCOMYCIN 525 ABX - ZOSYN 72 92 LR 362 NS 37 15 NS (0.9%) 47 155 136 IVPB 308 653 155 ABX - VANCOMYCIN 428 ABX - ZOSYN 154 225 45 NS 154 Potassium 110 Oral 600 800 75 Output: Byers 2360 3150 2085 75 Other: Date of Last Bowel 06/21 Movement # Bowel Movements 2 Estimated Stool Amount Small Labs: Laboratory Results - last 24 hr 06/22/18 06/22/18 06/22/18 08:25 08:25 14:15 WBC RBC Hgb Hct MCV MCH MCHC RDW Plt Count MPV Neut % (Auto) Lymph % (Auto) R[place] % (Auto) Eos % (Auto) Baso % (Auto) Absolute Neuts (auto) Absolute Lymphs (auto) Absolute Monos (auto) Absolute Eos (auto) Absolute Basos (auto) Absolute Nucleated RBC Nucleated RBC % Patient Temperature ABG pH ABG pH (Temp Correct) ABG pCO2 ABG pCO2 (Temp Corrct ABG pO2 ABG pO2 (Temp Correct ABG HCO3 ABG O2 Saturation ABG Base Excess Respiration Rate O2 Delivery Device Ventilator Type Vent Mode FiO2 Inspiratory Time PEEP Pressure Support Pressure Control EPAP IPAP BiPAP Sodium 146 H Potassium 4.0 Chloride 106 Carbon Dioxide 32 Anion Gap 8 BUN 34 H Creatinine 0.48 L Est GFR ( Amer) 207.3 Est GFR (Non-Af Amer) 171.3 BUN/Creatinine Ratio 70.8 H Glucose 157 H Lactic Acid Calcium 8.3 L Magnesium 2.0 Total Bilirubin 1.20 H Direct Bilirubin 0.30 H Indirect Bilirubin 0.9 AST 39 ALT 112 H Alkaline Phosphatase 106 H Ammonia 69 H Troponin I 0.10 H* Total Protein 5.5 L Albumin 2.9 L Globulin 2.6 Albumin/Globulin Ratio 1.1 06/22/18 06/22/18 06/23/18 14:15 14:30 05:18 WBC RBC Hgb Hct MCV MCH MCHC RDW Plt Count MPV Neut % (Auto) Lymph % (Auto) R[place] % (Auto) Eos % (Auto) Baso % (Auto) Absolute Neuts (auto) Absolute Lymphs (auto) Absolute Monos (auto) Absolute Eos (auto) Absolute Basos (auto) Absolute Nucleated RBC Nucleated RBC % Patient Temperature Not Reportable ABG pH 7.45 ABG pH (Temp Correct) Not Reportable ABG pCO2 46 H ABG pCO2 (Temp Corrct Not Reportable ABG pO2 77 L ABG pO2 (Temp Correct Not Reportable ABG HCO3 30.3 ABG O2 Saturation 98.2 H ABG Base Excess 7.0 H Respiration Rate Not Reportable O2 Delivery Device 15 lpm on ltv Ventilator Type Not Reportable Vent Mode Not Reportable FiO2 Not Reportable Inspiratory Time Not Reportable PEEP Not Reportable Pressure Support Not Reportable Pressure Control Not Reportable EPAP Not Reportable IPAP Not Reportable BiPAP Not Reportable Sodium Potassium Chloride Carbon Dioxide Anion Gap BUN Creatinine Est GFR ( Amer) Est GFR (Non-Af Amer) BUN/Creatinine Ratio Glucose Lactic Acid 0.7 Calcium Magnesium Total Bilirubin Direct Bilirubin Indirect Bilirubin AST ALT Alkaline Phosphatase Ammonia 62 H Troponin I Total Protein Albumin Globulin Albumin/Globulin Ratio 06/23/18 06/23/18 05:18 05:18 WBC 8.0 RBC 4.24 Hgb 12.0 L Hct 37 L MCV 87 MCH 28 MCHC 33 RDW 16 H Plt Count 176 MPV 8.7 Neut % (Auto) 88.6 H Lymph % (Auto) 1.8 L Rusk % (Auto) 9.2 H Eos % (Auto) 0.2 Baso % (Auto) 0.2 Absolute Neuts (auto) 7.1 Absolute Lymphs (auto) 0.1 L Absolute Monos (auto) 0.7 Absolute Eos (auto) 0 Absolute Basos (auto) 0 Absolute Nucleated RBC 0 Nucleated RBC % 0.1 Patient Temperature ABG pH ABG pH (Temp Correct) ABG pCO2 ABG pCO2 (Temp Corrct ABG pO2 ABG pO2 (Temp Correct ABG HCO3 ABG O2 Saturation ABG Base Excess Respiration Rate O2 Delivery Device Ventilator Type Vent Mode FiO2 Inspiratory Time PEEP Pressure Support Pressure Control EPAP IPAP BiPAP Sodium 145 Potassium 3.7 Chloride 107 Carbon Dioxide 31 Anion Gap 7 BUN 36 H Creatinine 0.43 L Est GFR ( Amer) 235.4 Est GFR (Non-Af Amer) 194.5 BUN/Creatinine Ratio 83.7 H Glucose 143 H Lactic Acid Calcium 8.2 L Magnesium 2.0 Total Bilirubin 1.10 H Direct Bilirubin 0.30 H Indirect Bilirubin 0.8 AST 28 ALT 88 H Alkaline Phosphatase 95 Ammonia Troponin I Total Protein 5.2 L Albumin 2.8 L Globulin 2.4 Albumin/Globulin Ratio 1.2 Studies: TTE 06/22 The left ventricular chamber size is normal. Unable to estimate left ventricular ejection fraction. The endocardium is not well visualized.Baseline LBBB. LV systolic function probably low normal to borderline reduced. There is septal flattening of the interventricular septum consistent with right ventricular volume or pressure overload. There is a left ventricular septal wall motion abnormality observed, possibly due to the presence of a left bundle branch block. Abnormal left ventricular diastolic function is observed. The left atrium is moderately dilated. The right ventricle is moderate to severely dilated. The right atrial cavity size is severely dilated. There is a trace of aortic regurgitation. There is trace to mild mitral regurgitation. There is moderate tricuspid regurgitation. The right ventricular systolic pressure is estimated at 57 mmHg. There is evidence of moderate pulmonary hypertension. There is trace to mild pulmonic regurgitation. There is moderate dilatation of the ascending aorta. There is mild dilatation of the aortic root. CXR 06/22 IMPRESSION: 1. MARKEDLY LIMITED STUDY. 2. LOW LUNG VOLUMES. 3. PULMONARY INTERSTITIAL EDEMA. 4. RIGHT MID AND LOWER LUNG CONSOLIDATION. CXR 06/21 IMPRESSION: INCREASED INTERSTITIAL EDEMA AND BIBASILAR AIRSPACE DISEASE. CXR 06/18 IMPRESSION: EXPIRATORY EXAMINATION. CT abd/pel 06/18 IMPRESSION: 1. There is pathologic dilatation of the gallbladder measuring up to 6.1 cm in diameter. Please correlate to signs or symptoms of acute cholecystitis and/or biliary obstruction. If clinically warranted superior characterization can be made with right upper quadrant ultrasound. 2. Small bibasilar pleural effusions and linear density most consistent with atelectasis. 3. Multiple low-attenuation structures in the bilateral kidneys, most of which have Hounsfield unit measurements consistent with simple cysts while others consistent negative attenuation indicating the presence of fat. There is no hydronephrosis. Recommend further characterization with nonemergent ultrasound. 4. There is low-attenuation replacement of the L3 vertebral body extending to the L1 and L2 vertebral bodies. The chronicity of this is unknown but could be related to prior traumatic injury resulting in the patient's reported paraplegia. Alternatively, this could be the result of infection in a patient with sepsis. 5. Contrast presumably injected into the left upper extremity is seen refluxing in the superficial veins of the left abdomen suggesting the presence of central venous obstruction or stenosis. 6. Infiltration of the subcutaneous fat overlying the bilateral low abdomen and extending to the buttocks could be consistent with anicteric/fluid overload which would also correlate to the small bibasilar pleural effusions. 7. There are additional chronic, degenerative and iatrogenic findings described in the body the report. Brain CT 06/18 IMPRESSION: #. Limited exam as noted. #. No gross evidence for intracranial hemorrhage. #. No gross evidence for mass effect. #. Negative for hydrocephalus. Cervical Spine CT 06/18 IMPRESSION: 1. DEGENERATIVE CHANGES OF THE CERVICAL SPINE WITHOUT DEFINITE EVIDENCE FOR FRACTURE OR DISLOCATION. 2. There is a low-attenuation partially calcified structure at the left lower neck suspected to be the thyroid gland. As clinically warranted superior characterization of the thyroid can be made with ultrasound. Gallbladder US 06/19 IMPRESSION: #. Limited exam as noted. #. Hepatosteatosis. #. Distended gallbladder with cholelithiasis. Negative for gallbladder wall thickening, pericholecystic fluid, or sonographic Napoles sign to strongly favor acute cholecystitis. Impression: 72M with htn, gerd, ALS, presents with AMS 2/2 severe sepsis 2/2 biliary obstruction. Acute on chronic respiratory failure. Asymptomatic atrial tachycardia. Pulm htn. Plan: Neuro - AMS, ALS - AMS 2/2 sepsis - improving - will hold off on ct head and neuro eval - ALS - PT consult for ROM exercises CV - hypotension, atrial tachycardia - hypotension - resolved - atrial tachy 2/2 being off coreg - titrate up to 12.5 - tte with RVSP 57 - likely chronic - hold on further diuresis Pulm - acute on chronic respiratory failure - 2/2 ALS and iatrogenic volume overload - c/w home vent - chest pt, cough assist - nebs prn ID - severe sepsis - 2/2 biliary obstruction - improving - lfts improving - cultures and lactate neg - c/w vanco zosyn (day 5 of 7) GI - biliary obstruction - likely has passed a gall stone - ct showing dilated gallbladder - RUQ sono distended gallbladder but no wall thickening or pericholecystic fluid - GI defers ERCP - Surgery to re-evaluate as an outpatient for cholecystectomy - advance diet as tolerated - HIDA scan if worsens Renal - sirisha, hypokalemia - 2/2 sepsis - resolved - monitor lytes - strict i/o - replete potassium Heme - monitor cbc Endo - check fs, niss Lines - piv, byers PPx - gi/dvt Full Code Critical Care Time: 60 mins
[2018-06-23] MEDS: Baclofen TAB* 20 MG PO SCH ×2 (08:59→22:15)
[2018-06-23] MEDS: Lactobacillus Acidophilus* 1 TAB PO SCH ×2 (09:00→22:15)
[2018-06-23] MEDS: Carvedilol TAB* 6.25 MG PO SCH ×2 (09:00→22:15)
[2018-06-23] MEDS: Potassium Chlor TAB* 20 MEQ TAB.ER PO SCH ×2 (09:02→12:15)
[2018-06-23] MEDS: Sertraline* 100 MG TAB PO SCH (09:03)
[2018-06-23] MEDS: Omeprazole CAP* 20 MG PO SCH (09:03)
[2018-06-23] MEDS ORDERED: Vancomycin Trough Check NOTE FOLLOW UP ONE (11:30)
[2018-06-23] MEDS ORDERED: NS 0.9% 50 ML* 50 ML ONE (12:08)
[2018-06-23] MEDS ORDERED: NS 0.9% 250 ML* 250 ML ONE (14:24)
[2018-06-23] MEDS: Piperacillin/Tazobac ADVAN(*) 3.375 GM in NS 0.9% 100 ML* 100 ML IVPB SCH (20:35)
[2018-06-24] MEDS: Vancomycin(*) 1,000 MG in NS 0.9% 250 ML* 250 ML IVPB SCH ×2 (00:24→11:38)
[2018-06-24] MEDS: Piperacillin/Tazobac ADVAN(*) 3.375 GM in NS 0.9% 100 ML* 100 ML IVPB SCH ×3 (04:21→20:30)
[2018-06-24 05:30] LABS: ABS Basophils 0 10^3/ul (0-0.2); ABS Eosinophils 0.1 10^3/ul (0-0.6); ABS Lymphocytes 0.1 10^3/ul (1.0-4.8); ABS Monocytes 0.6 10^3/ul (0-0.8); ABS Neutrophils 6.7 10^3/ul (1.5-7.7); ABS Nucleated RBC 0 10^3/ul; Eosinophil % 1.7 % (0-6); Hematocrit 35 % (42-52); Hemoglobin 11.7 g/dl (14.0-18.0); Lymphocyte % 1.9 % (25-47); Mean Corpuscular HGB Conc 33 g/dl (31-36); Mean Corpuscular Hemoglobin 29 pg (27-31); Mean Corpuscular Volume 87 fL (80-94); Mean Platelet Volume 8.8 um3 (7.4-10.4); Nucleated Red Blood Cells % 0; Platelet Count 176 10^3/ul (150-450); Red Blood Count 4.09 10^6/ul (4.00-5.40); Red Cell Distribution Width 16 % (10.5-15); White Blood Count 7.5 10^3/ul (3.5-10.8)
[2018-06-24 05:56] LABS: EGFR Non-African American 217.7 (>60)
[2018-06-24] MEDS: Heparin VIAL(*) 5000 UNITS/ML VIAL (FIVE THOUSAND) SUBCUT SCH ×3 (06:50→21:57)
--- NOTE | 2018-06-24 08:31 | PN ---
Date of Service: 06/24/18 Critical Care Services: 72M with htn, gerd, h/o LBBB, ALS presents with AMS that started yesterday. The patient was brought to the ER and was found to have leukocytosis and abnormal LFTs. He was hypotensive and started on if fluids and antibiotics. 06/19: Mental status somewhat improved as per family. BP remains low. 06/20: Mental status and lab work improving. 06/21: Hypoxic overnight now on HFNC. Family now says patient uses home ventilator when he sleeps and will bring in today. CXR showing volume overload and atelectasis. Labwork near normal. 06/22: Patient remains confused. LFTs slightly worse this am. Episodes of atrial tachycardia overnight but asymptomatic. requesting neurology evaluation. 06/23: Labwork continues to improve. Diuresed over the past 3 days. TTE with evidence of pulm htn. Patient continues to require home vent with supplemental o2. 06/24: Continues to improve. No longer with visual hallucinations. Oxygenation improving. Vital Signs: Temp Pulse Resp BP SpO2 FiO2 96.7 F 64 16 149/58 97 40 06/24/18 03:44 06/24/18 06:01 06/24/18 06:01 06/24/18 06:01 06/24/18 06:01 06/24 04:00 Physical Exam: Gen - NAD, Obese HEENT - NCAT, EOMI Neck - No JVD CV - s1/s2, no murmur Lungs - +ronchi, Abd - soft, nt, Ext - contracted, improved edema Neuro - answers questions slowly, does not move extremities Fluid Balance (Past 24 Hours): I= O= Net Intake & Output 06/22/18 06/23/18 06/24/18 06/25/18 06:59 06:59 06:59 06:59 Intake Total 6976 680 8564 Output Total 3150 2085 2185 Balance -1470 -1087 538 Weight 116.7 kg 124.6 kg 118.6 kg Intake: IV Fluids 227 768 922 ABX - VANCOMYCIN 525 521 ABX - ZOSYN 72 92 209 NS 15 NS (0.9%) 155 136 192 IVPB 653 155 121 ABX - VANCOMYCIN 428 24 ABX - ZOSYN 225 45 97 Potassium 110 Oral 004 05 3449 Output: Byers 3150 2085 2185 Other: Date of Last Bowel 06/2106/23/18 Movement # Bowel Movements 2 1 Estimated Stool Amount Small Small Labs: Laboratory Results - last 24 hr 06/23/18 06/24/18 06/24/18 11:30 05:21 05:21 WBC 7.5 RBC 4.09 Hgb 11.7 L Hct 35 L MCV 87 MCH 29 MCHC 33 RDW 16 H Plt Count 176 MPV 8.8 Neut % (Auto) 88.8 H Lymph % (Auto) 1.9 L [place] % (Auto) 7.5 H Eos % (Auto) 1.7 Baso % (Auto) 0.1 Absolute Neuts (auto) 6.7 Absolute Lymphs (auto) 0.1 L Absolute Monos (auto) 0.6 Absolute Eos (auto) 0.1 Absolute Basos (auto) 0 Absolute Nucleated RBC 0 Nucleated RBC % 0 Sodium 143 Potassium 3.9 Chloride 108 Carbon Dioxide 28 Anion Gap 7 BUN 32 H Creatinine 0.39 L Est GFR ( Amer) 263.4 Est GFR (Non-Af Amer) 217.7 BUN/Creatinine Ratio 82.1 H Glucose 133 H Calcium 8.0 L Magnesium 2.1 Total Bilirubin 1.10 H Direct Bilirubin 0.30 H Indirect Bilirubin 0.8 AST 27 ALT 77 H Alkaline Phosphatase 82 Total Protein 5.1 L Albumin 2.8 L Globulin 2.3 Albumin/Globulin Ratio 1.2 Vancomycin Trough 14.5 Studies: TTE 06/22 The left ventricular chamber size is normal. Unable to estimate left ventricular ejection fraction. The endocardium is not well visualized.Baseline LBBB. LV systolic function probably low normal to borderline reduced. There is septal flattening of the interventricular septum consistent with right ventricular volume or pressure overload. There is a left ventricular septal wall motion abnormality observed, possibly due to the presence of a left bundle branch block. Abnormal left ventricular diastolic function is observed. The left atrium is moderately dilated. The right ventricle is moderate to severely dilated. The right atrial cavity size is severely dilated. There is a trace of aortic regurgitation. There is trace to mild mitral regurgitation. There is moderate tricuspid regurgitation. The right ventricular systolic pressure is estimated at 57 mmHg. There is evidence of moderate pulmonary hypertension. There is trace to mild pulmonic regurgitation. There is moderate dilatation of the ascending aorta. There is mild dilatation of the aortic root. CXR 06/22 IMPRESSION: 1. MARKEDLY LIMITED STUDY. 2. LOW LUNG VOLUMES. 3. PULMONARY INTERSTITIAL EDEMA. 4. RIGHT MID AND LOWER LUNG CONSOLIDATION. CXR 06/21 IMPRESSION: INCREASED INTERSTITIAL EDEMA AND BIBASILAR AIRSPACE DISEASE. CXR 06/18 IMPRESSION: EXPIRATORY EXAMINATION. CT abd/pel 06/18 IMPRESSION: 1. There is pathologic dilatation of the gallbladder measuring up to 6.1 cm in diameter. Please correlate to signs or symptoms of acute cholecystitis and/or biliary obstruction. If clinically warranted superior characterization can be made with right upper quadrant ultrasound. 2. Small bibasilar pleural effusions and linear density most consistent with atelectasis. 3. Multiple low-attenuation structures in the bilateral kidneys, most of which have Hounsfield unit measurements consistent with simple cysts while others consistent negative attenuation indicating the presence of fat. There is no hydronephrosis. Recommend further characterization with nonemergent ultrasound. 4. There is low-attenuation replacement of the L3 vertebral body extending to the L1 and L2 vertebral bodies. The chronicity of this is unknown but could be related to prior traumatic injury resulting in the patient's reported paraplegia. Alternatively, this could be the result of infection in a patient with sepsis. 5. Contrast presumably injected into the left upper extremity is seen refluxing in the superficial veins of the left abdomen suggesting the presence of central venous obstruction or stenosis. 6. Infiltration of the subcutaneous fat overlying the bilateral low abdomen and extending to the buttocks could be consistent with anicteric/fluid overload which would also correlate to the small bibasilar pleural effusions. 7. There are additional chronic, degenerative and iatrogenic findings described in the body the report. Brain CT 06/18 IMPRESSION: #. Limited exam as noted. #. No gross evidence for intracranial hemorrhage. #. No gross evidence for mass effect. #. Negative for hydrocephalus. Cervical Spine CT 06/18 IMPRESSION: 1. DEGENERATIVE CHANGES OF THE CERVICAL SPINE WITHOUT DEFINITE EVIDENCE FOR FRACTURE OR DISLOCATION. 2. There is a low-attenuation partially calcified structure at the left lower neck suspected to be the thyroid gland. As clinically warranted superior characterization of the thyroid can be made with ultrasound. Gallbladder US 06/19 IMPRESSION: #. Limited exam as noted. #. Hepatosteatosis. #. Distended gallbladder with cholelithiasis. Negative for gallbladder wall thickening, pericholecystic fluid, or sonographic Napoles sign to strongly favor acute cholecystitis. Impression: 72M with htn, gerd, ALS, presents with AMS 2/2 severe sepsis 2/2 biliary obstruction. Acute on chronic respiratory failure. Asymptomatic atrial tachycardia. Pulm htn. Plan: Neuro - AMS, ALS - AMS 2/2 sepsis - improving - ALS - PT consult for ROM exercises CV - hypotension, atrial tachycardia - hypotension - resolved - atrial tach - resolved - tte with RVSP 57 - likely chronic - hold on further diuresis Pulm - acute on chronic respiratory failure - 2/2 ALS and iatrogenic volume overload - c/w home vent - chest pt, cough assist - nebs prn ID - severe sepsis - 2/2 biliary obstruction - improving - lfts improving - cultures and lactate neg - c/w vanco zosyn (day 6 of 7) GI - biliary obstruction - likely has passed a gall stone - ct showing dilated gallbladder - RUQ sono distended gallbladder but no wall thickening or pericholecystic fluid - GI defers ERCP - Surgery to re-evaluate as an outpatient for cholecystectomy - advance diet as tolerated Renal - sirisha, hypokalemia - 2/2 sepsis - resolved - monitor lytes - strict i/o - replete potassium Heme - monitor cbc Endo - check fs, niss Lines - piv, byers PPx - gi/dvt Full Code Critical Care Time: 40 mins
[2018-06-24] MEDS: Baclofen TAB* 20 MG PO SCH ×2 (08:57→20:31)
[2018-06-24] MEDS: Carvedilol TAB* 6.25 MG PO SCH ×2 (08:57→20:30)
[2018-06-24] MEDS: Lactobacillus Acidophilus* 1 TAB PO SCH ×2 (08:57→20:30)
[2018-06-24] MEDS: Ondansetron INJ* 2 MG/ML VIAL IV PRN (08:57)
[2018-06-24] MEDS: Omeprazole CAP* 20 MG PO SCH (08:57)
[2018-06-24] MEDS ORDERED: Acetaminop/Codeine 30 MG TAB* 1 TAB (300 MG/30 MG) PO ONE (08:57)
[2018-06-24] MEDS: Sertraline* 100 MG TAB PO SCH (08:57)
[2018-06-24] MEDS: Acetaminophen TAB* 325 MG PO PRN (08:57)
[2018-06-24] MEDS: Lisinopril TAB* 10 MG PO SCH (09:15)
[2018-06-24] MEDS: Acetaminop/Codeine 30 MG TAB* 1 TAB (300 MG/30 MG) PO PRN (21:57)
[2018-06-25] MEDS: Vancomycin(*) 1,000 MG in NS 0.9% 250 ML* 250 ML IVPB SCH ×2 (00:14→13:21)
[2018-06-25] MEDS: Piperacillin/Tazobac ADVAN(*) 3.375 GM in NS 0.9% 100 ML* 100 ML IVPB SCH ×3 (04:25→20:15)
[2018-06-25 06:27] LABS: ABS Basophils 0 10^3/ul (0-0.2); ABS Eosinophils 0.5 10^3/ul (0-0.6); ABS Lymphocytes 0.2 10^3/ul (1.0-4.8); ABS Monocytes 0.5 10^3/ul (0-0.8); ABS Neutrophils 6.8 10^3/ul (1.5-7.7); ABS Nucleated RBC 0 10^3/ul; Eosinophil % 6.2 % (0-6); Hematocrit 38 % (42-52); Hemoglobin 12.4 g/dl (14.0-18.0); Mean Corpuscular HGB Conc 32 g/dl (31-36); Mean Corpuscular Hemoglobin 29 pg (27-31); Mean Corpuscular Volume 88 fL (80-94); Mean Platelet Volume 9.3 um3 (7.4-10.4); Nucleated Red Blood Cells % 0; Platelet Count 158 10^3/ul (150-450); Red Blood Count 4.33 10^6/ul (4.00-5.40); Red Cell Distribution Width 16 % (10.5-15)
[2018-06-25 06:38] LABS: EGFR Non-African American 217.7 (>60)
[2018-06-25] MEDS: Heparin VIAL(*) 5000 UNITS/ML VIAL (FIVE THOUSAND) SUBCUT SCH ×3 (07:29→21:20)
[2018-06-25] MEDS: Carvedilol TAB* 6.25 MG PO SCH ×2 (08:59→21:19)
[2018-06-25] MEDS: Lisinopril TAB* 10 MG PO SCH (09:00)
[2018-06-25] MEDS: Baclofen TAB* 20 MG PO SCH ×2 (09:00→21:19)
[2018-06-25] MEDS: Lactobacillus Acidophilus* 1 TAB PO SCH ×2 (09:00→21:18)
[2018-06-25] MEDS: Sertraline* 100 MG TAB PO SCH (09:00)
[2018-06-25] MEDS: Omeprazole CAP* 20 MG PO SCH (09:00)
[2018-06-25] MEDS: RiFAXimin* 550 MG TAB PO SCH ×2 (09:00→21:18)
--- NOTE | 2018-06-25 09:09 | PN ---
Date of Service: 06/25/18 Critical Care Services: 72M with htn, gerd, h/o LBBB, ALS presents with AMS that started yesterday. The patient was brought to the ER and was found to have leukocytosis and abnormal LFTs. He was hypotensive and started on if fluids and antibiotics. 06/19: Mental status somewhat improved as per family. BP remains low. 06/20: Mental status and lab work improving. 06/21: Hypoxic overnight now on HFNC. Family now says patient uses home ventilator when he sleeps and will bring in today. CXR showing volume overload and atelectasis. Labwork near normal. 06/22: Patient remains confused. LFTs slightly worse this am. Episodes of atrial tachycardia overnight but asymptomatic. requesting neurology evaluation. 06/23: Labwork continues to improve. Diuresed over the past 3 days. TTE with evidence of pulm htn. Patient continues to require home vent with supplemental o2. 06/24: Continues to improve. No longer with visual hallucinations. Oxygenation improving. 06/25: Lfts improved. Was out in chair yesterday and off home vent for several hours. Still hypoxic. Ammonia 70 this AM. Vital Signs: Temp Pulse Resp BP SpO2 FiO2 98 F 67 20 135/50 94 40 06/25/18 04:05 06/25/18 08:31 06/25/18 08:31 06/25/18 08:31 06/25/18 08:31 06/24 04:00 Physical Exam: Gen - NAD, Obese HEENT - NCAT, EOMI Neck - No JVD CV - s1/s2, no murmur Lungs - +ronchi, Abd - soft, nt, Ext - contracted, improved edema Neuro - answers questions slowly, does not move extremities Fluid Balance (Past 24 Hours): I= O= Net Intake & Output 06/23/18 06/24/18 06/25/18 06/26/18 06:59 06:59 06:59 06:59 Intake Total 998 2723 595.7 517 Output Total 2089 2185 887 80 Balance -1087 538 -291.3 437 Weight 124.6 kg 118.6 kg Intake: IV Fluids 768 922 595.7 517 ABX - VANCOMYCIN 525 521 260 275 ABX - ZOSYN 92 209 246 159 NS 15 NS (0.9%) 136 192 89.7 83 IVPB 155 121 ABX - VANCOMYCIN 24 ABX - ZOSYN 45 97 Potassium 110 Oral 75 1680 Output: Byers 2085 2185 887 80 Other: Date of Last Bowel 06/23/18 06/24/18 Movement # Bowel Movements 1 3 Estimated Stool Amount Small Medium Labs: Laboratory Results - last 24 hr 06/24/18 06/25/18 06/25/18 18:20 05:45 05:45 WBC RBC Hgb Hct MCV MCH MCHC RDW Plt Count MPV Neut % (Auto) Lymph % (Auto) [place] % (Auto) Eos % (Auto) Baso % (Auto) Absolute Neuts (auto) Absolute Lymphs (auto) Absolute Monos (auto) Absolute Eos (auto) Absolute Basos (auto) Absolute Nucleated RBC Nucleated RBC % Sodium 145 Potassium 4.0 Chloride 108 Carbon Dioxide 30 Anion Gap 7 BUN 27 H Creatinine 0.39 L Est GFR ( Amer) 263.4 Est GFR (Non-Af Amer) 217.7 BUN/Creatinine Ratio 69.2 H Glucose 120 H Calcium 8.1 L Magnesium 2.1 Total Bilirubin 0.70 Direct Bilirubin 0.30 H Indirect Bilirubin 0.4 AST 30 ALT 79 H Alkaline Phosphatase 84 Ammonia 47 70 H Total Protein 5.2 L Albumin 2.8 L Globulin 2.4 Albumin/Globulin Ratio 1.2 06/25/18 05:45 WBC 8.0 RBC 4.33 Hgb 12.4 L Hct 38 L MCV 88 MCH 29 MCHC 32 RDW 16 H Plt Count 158 MPV 9.3 Neut % (Auto) 84.8 H Lymph % (Auto) 2.0 L [place] % (Auto) 6.4 Eos % (Auto) 6.2 H Baso % (Auto) 0.6 Absolute Neuts (auto) 6.8 Absolute Lymphs (auto) 0.2 L Absolute Monos (auto) 0.5 Absolute Eos (auto) 0.5 Absolute Basos (auto) 0 Absolute Nucleated RBC 0 Nucleated RBC % 0 Sodium Potassium Chloride Carbon Dioxide Anion Gap BUN Creatinine Est GFR ( Amer) Est GFR (Non-Af Amer) BUN/Creatinine Ratio Glucose Calcium Magnesium Total Bilirubin Direct Bilirubin Indirect Bilirubin AST ALT Alkaline Phosphatase Ammonia Total Protein Albumin Globulin Albumin/Globulin Ratio Studies: TTE 06/22 The left ventricular chamber size is normal. Unable to estimate left ventricular ejection fraction. The endocardium is not well visualized.Baseline LBBB. LV systolic function probably low normal to borderline reduced. There is septal flattening of the interventricular septum consistent with right ventricular volume or pressure overload. There is a left ventricular septal wall motion abnormality observed, possibly due to the presence of a left bundle branch block. Abnormal left ventricular diastolic function is observed. The left atrium is moderately dilated. The right ventricle is moderate to severely dilated. The right atrial cavity size is severely dilated. There is a trace of aortic regurgitation. There is trace to mild mitral regurgitation. There is moderate tricuspid regurgitation. The right ventricular systolic pressure is estimated at 57 mmHg. There is evidence of moderate pulmonary hypertension. There is trace to mild pulmonic regurgitation. There is moderate dilatation of the ascending aorta. There is mild dilatation of the aortic root. CXR 06/22 IMPRESSION: 1. MARKEDLY LIMITED STUDY. 2. LOW LUNG VOLUMES. 3. PULMONARY INTERSTITIAL EDEMA. 4. RIGHT MID AND LOWER LUNG CONSOLIDATION. CXR 06/21 IMPRESSION: INCREASED INTERSTITIAL EDEMA AND BIBASILAR AIRSPACE DISEASE. CXR 06/18 IMPRESSION: EXPIRATORY EXAMINATION. CT abd/pel 06/18 IMPRESSION: 1. There is pathologic dilatation of the gallbladder measuring up to 6.1 cm in diameter. Please correlate to signs or symptoms of acute cholecystitis and/or biliary obstruction. If clinically warranted superior characterization can be made with right upper quadrant ultrasound. 2. Small bibasilar pleural effusions and linear density most consistent with atelectasis. 3. Multiple low-attenuation structures in the bilateral kidneys, most of which have Hounsfield unit measurements consistent with simple cysts while others consistent negative attenuation indicating the presence of fat. There is no hydronephrosis. Recommend further characterization with nonemergent ultrasound. 4. There is low-attenuation replacement of the L3 vertebral body extending to the L1 and L2 vertebral bodies. The chronicity of this is unknown but could be related to prior traumatic injury resulting in the patient's reported paraplegia. Alternatively, this could be the result of infection in a patient with sepsis. 5. Contrast presumably injected into the left upper extremity is seen refluxing in the superficial veins of the left abdomen suggesting the presence of central venous obstruction or stenosis. 6. Infiltration of the subcutaneous fat overlying the bilateral low abdomen and extending to the buttocks could be consistent with anicteric/fluid overload which would also correlate to the small bibasilar pleural effusions. 7. There are additional chronic, degenerative and iatrogenic findings described in the body the report. Brain CT 06/18 IMPRESSION: #. Limited exam as noted. #. No gross evidence for intracranial hemorrhage. #. No gross evidence for mass effect. #. Negative for hydrocephalus. Cervical Spine CT 06/18 IMPRESSION: 1. DEGENERATIVE CHANGES OF THE CERVICAL SPINE WITHOUT DEFINITE EVIDENCE FOR FRACTURE OR DISLOCATION. 2. There is a low-attenuation partially calcified structure at the left lower neck suspected to be the thyroid gland. As clinically warranted superior characterization of the thyroid can be made with ultrasound. Gallbladder US 06/19 IMPRESSION: #. Limited exam as noted. #. Hepatosteatosis. #. Distended gallbladder with cholelithiasis. Negative for gallbladder wall thickening, pericholecystic fluid, or sonographic Napoles sign to strongly favor acute cholecystitis. Impression: 72M with htn, gerd, ALS, presents with AMS 2/2 severe sepsis 2/2 biliary obstruction. Acute on chronic respiratory failure. Asymptomatic atrial tachycardia. Pulm htn. Plan: Neuro - AMS, ALS - AMS 2/2 sepsis - improving - ALS - PT consult for ROM exercises CV - hypotension, atrial tachycardia - hypotension - resolved - atrial tach - resolved - tte with RVSP 57 - likely chronic - hold on further diuresis Pulm - acute on chronic respiratory failure - 2/2 ALS and iatrogenic volume overload - c/w home vent - chest pt, cough assist - nebs prn ID - severe sepsis - 2/2 biliary obstruction - improving - lfts improving - cultures and lactate neg - c/w vanco zosyn (day 7 of 7) GI - biliary obstruction, hyperammonemia - likely has passed a gall stone - ct showing dilated gallbladder - RUQ sono distended gallbladder but no wall thickening or pericholecystic fluid - GI defers ERCP - Surgery to re-evaluate as an outpatient for cholecystectomy - advance diet as tolerated - rifaximin for elevated ammonia - unclear etiology Renal - sirisha, hypokalemia - 2/2 sepsis - resolved - potassium 4 today - monitor lytes - strict i/o Heme - monitor cbc Endo - check fs, niss Lines - piv, byers PPx - gi/dvt Full Code Critical Care Time: 45 mins
[2018-06-25] MEDS: Furosemide TAB* 20 MG PO SCH (13:21)
[2018-06-25] MEDS: Acetaminop/Codeine 30 MG TAB* 1 TAB (300 MG/30 MG) PO PRN (21:18)
[2018-06-26] MEDS: Heparin VIAL(*) 5000 UNITS/ML VIAL (FIVE THOUSAND) SUBCUT SCH ×3 (05:23→21:30)
[2018-06-26 05:38] LABS: ABS Basophils 0 10^3/ul (0-0.2); ABS Eosinophils 0.6 10^3/ul (0-0.6); ABS Lymphocytes 0.1 10^3/ul (1.0-4.8); ABS Monocytes 0.5 10^3/ul (0-0.8); ABS Neutrophils 7.2 10^3/ul (1.5-7.7); ABS Nucleated RBC 0 10^3/ul; Eosinophil % 7.6 % (0-6); Hematocrit 37 % (42-52); Hemoglobin 11.7 g/dl (14.0-18.0); Lymphocyte % 1.3 % (25-47); Mean Corpuscular HGB Conc 32 g/dl (31-36); Mean Corpuscular Hemoglobin 28 pg (27-31); Mean Corpuscular Volume 89 fL (80-94); Mean Platelet Volume 9.5 um3 (7.4-10.4); Nucleated Red Blood Cells % 0; Platelet Count 165 10^3/ul (150-450); Red Blood Count 4.12 10^6/ul (4.00-5.40); Red Cell Distribution Width 16 % (10.5-15); White Blood Count 8.4 10^3/ul (3.5-10.8)
[2018-06-26 05:48] LABS: EGFR Non-African American 184.6 (>60)
[2018-06-26] MEDS: Lisinopril TAB* 10 MG PO SCH (09:05)
[2018-06-26] MEDS: Baclofen TAB* 20 MG PO SCH ×2 (09:05→21:30)
[2018-06-26] MEDS: Furosemide TAB* 20 MG PO SCH (09:05)
[2018-06-26] MEDS: Sertraline* 100 MG TAB PO SCH (09:05)
[2018-06-26] MEDS: Lactobacillus Acidophilus* 1 TAB PO SCH ×2 (09:05→21:30)
[2018-06-26] MEDS: Omeprazole CAP* 20 MG PO SCH (09:05)
[2018-06-26] MEDS: Carvedilol TAB* 6.25 MG PO SCH ×2 (09:06→21:29)
[2018-06-26] MEDS: RiFAXimin* 550 MG TAB PO SCH ×2 (09:06→21:27)
--- NOTE | 2018-06-26 09:42 | PN ---
Date of Service: 06/26/18 Critical Care Services: 72M with htn, gerd, h/o LBBB, ALS presents with AMS that started yesterday. The patient was brought to the ER and was found to have leukocytosis and abnormal LFTs. He was hypotensive and started on if fluids and antibiotics. 06/19: Mental status somewhat improved as per family. BP remains low. 06/20: Mental status and lab work improving. 06/21: Hypoxic overnight now on HFNC. Family now says patient uses home ventilator when he sleeps and will bring in today. CXR showing volume overload and atelectasis. Labwork near normal. 06/22: Patient remains confused. LFTs slightly worse this am. Episodes of atrial tachycardia overnight but asymptomatic. requesting neurology evaluation. 06/23: Labwork continues to improve. Diuresed over the past 3 days. TTE with evidence of pulm htn. Patient continues to require home vent with supplemental o2. 06/24: Continues to improve. No longer with visual hallucinations. Oxygenation improving. 06/25: Lfts improved. Was out in chair yesterday and off home vent for several hours. Still hypoxic. Ammonia 70 this AM. 06/26: ALT mildy elevated. Ammonia 58 after starting rifaximin. Down to 8L NC. Vital Signs: Temp Pulse Resp BP SpO2 FiO2 97.5 F 62 18 123/45 94 80 06/26/18 08:00 06/26/18 06:01 06/26/18 06:01 06/26/18 06:01 06/26/18 06:01 06/25 20:09 Physical Exam: Gen - NAD, Obese HEENT - NCAT, EOMI Neck - No JVD CV - s1/s2, no murmur Lungs - cta Abd - soft, nt, Ext - contracted, improved edema Neuro - answers questions appropriately, does not move extremities Fluid Balance (Past 24 Hours): I= O= Net Intake & Output 06/24/18 06/25/18 06/26/18 06/27/18 06:59 06:59 06:59 06:59 Intake Total 2723 595.7 1329 Output Total 2185 887 1020 Balance 538 -291.3 309 Weight 118.6 kg 117.48 kg Intake: IV Fluids 922 595.7 699 ABX - VANCOMYCIN 521 260 300 ABX - ZOSYN 209 246 159 NS (0.9%) 192 89.7 240 IVPB 121 510 ABX - VANCOMYCIN 24 248 ABX - ZOSYN 97 262 Oral 1680 120 Output: Byers 2185 887 1020 Other: Date of Last Bowel 06/23/18 06/24/18 06/24/18 Movement # Bowel Movements 1 3 Estimated Stool Amount Small Medium Labs: Laboratory Results - last 24 hr 06/26/18 06/26/18 06/26/18 05:15 05:15 05:15 WBC 8.4 RBC 4.12 Hgb 11.7 L Hct 37 L MCV 89 MCH 28 MCHC 32 RDW 16 H Plt Count 165 MPV 9.5 Neut % (Auto) 85.1 H Lymph % (Auto) 1.3 L Dodge % (Auto) 5.9 Eos % (Auto) 7.6 H Baso % (Auto) 0.1 Absolute Neuts (auto) 7.2 Absolute Lymphs (auto) 0.1 L Absolute Monos (auto) 0.5 Absolute Eos (auto) 0.6 Absolute Basos (auto) 0 Absolute Nucleated RBC 0 Nucleated RBC % 0 Sodium 145 Potassium 3.8 Chloride 107 Carbon Dioxide 34 H Anion Gap 4 BUN 24 Creatinine 0.45 L Est GFR ( Amer) 223.3 Est GFR (Non-Af Amer) 184.6 BUN/Creatinine Ratio 53.3 H Glucose 120 H Calcium 8.0 L Magnesium 2.1 Total Bilirubin 0.70 Direct Bilirubin 0.40 H Indirect Bilirubin 0.3 AST 39 ALT 95 H Alkaline Phosphatase 82 Ammonia 58 H Total Protein 4.9 L Albumin 2.7 L Globulin 2.2 Albumin/Globulin Ratio 1.2 Studies: TTE 06/22 The left ventricular chamber size is normal. Unable to estimate left ventricular ejection fraction. The endocardium is not well visualized.Baseline LBBB. LV systolic function probably low normal to borderline reduced. There is septal flattening of the interventricular septum consistent with right ventricular volume or pressure overload. There is a left ventricular septal wall motion abnormality observed, possibly due to the presence of a left bundle branch block. Abnormal left ventricular diastolic function is observed. The left atrium is moderately dilated. The right ventricle is moderate to severely dilated. The right atrial cavity size is severely dilated. There is a trace of aortic regurgitation. There is trace to mild mitral regurgitation. There is moderate tricuspid regurgitation. The right ventricular systolic pressure is estimated at 57 mmHg. There is evidence of moderate pulmonary hypertension. There is trace to mild pulmonic regurgitation. There is moderate dilatation of the ascending aorta. There is mild dilatation of the aortic root. CXR 06/22 IMPRESSION: 1. MARKEDLY LIMITED STUDY. 2. LOW LUNG VOLUMES. 3. PULMONARY INTERSTITIAL EDEMA. 4. RIGHT MID AND LOWER LUNG CONSOLIDATION. CXR 06/21 IMPRESSION: INCREASED INTERSTITIAL EDEMA AND BIBASILAR AIRSPACE DISEASE. CXR 06/18 IMPRESSION: EXPIRATORY EXAMINATION. CT abd/pel 06/18 IMPRESSION: 1. There is pathologic dilatation of the gallbladder measuring up to 6.1 cm in diameter. Please correlate to signs or symptoms of acute cholecystitis and/or biliary obstruction. If clinically warranted superior characterization can be made with right upper quadrant ultrasound. 2. Small bibasilar pleural effusions and linear density most consistent with atelectasis. 3. Multiple low-attenuation structures in the bilateral kidneys, most of which have Hounsfield unit measurements consistent with simple cysts while others consistent negative attenuation indicating the presence of fat. There is no hydronephrosis. Recommend further characterization with nonemergent ultrasound. 4. There is low-attenuation replacement of the L3 vertebral body extending to the L1 and L2 vertebral bodies. The chronicity of this is unknown but could be related to prior traumatic injury resulting in the patient's reported paraplegia. Alternatively, this could be the result of infection in a patient with sepsis. 5. Contrast presumably injected into the left upper extremity is seen refluxing in the superficial veins of the left abdomen suggesting the presence of central venous obstruction or stenosis. 6. Infiltration of the subcutaneous fat overlying the bilateral low abdomen and extending to the buttocks could be consistent with anicteric/fluid overload which would also correlate to the small bibasilar pleural effusions. 7. There are additional chronic, degenerative and iatrogenic findings described in the body the report. Brain CT 06/18 IMPRESSION: #. Limited exam as noted. #. No gross evidence for intracranial hemorrhage. #. No gross evidence for mass effect. #. Negative for hydrocephalus. Cervical Spine CT 06/18 IMPRESSION: 1. DEGENERATIVE CHANGES OF THE CERVICAL SPINE WITHOUT DEFINITE EVIDENCE FOR FRACTURE OR DISLOCATION. 2. There is a low-attenuation partially calcified structure at the left lower neck suspected to be the thyroid gland. As clinically warranted superior characterization of the thyroid can be made with ultrasound. Gallbladder US 06/19 IMPRESSION: #. Limited exam as noted. #. Hepatosteatosis. #. Distended gallbladder with cholelithiasis. Negative for gallbladder wall thickening, pericholecystic fluid, or sonographic Napoles sign to strongly favor acute cholecystitis. Impression: 72M with htn, gerd, ALS, presents with AMS 2/2 severe sepsis 2/2 biliary obstruction. Acute on chronic respiratory failure. Asymptomatic atrial tachycardia. Pulm htn. Hyperammonemia. Plan: Neuro - AMS, ALS - AMS 2/2 sepsis - improving - ALS - PT consult for ROM exercises CV - hypotension, atrial tachycardia - hypotension - resolved - atrial tach - resolved - tte with RVSP 57 - likely chronic - restarting home lasix Pulm - acute on chronic respiratory failure - 2/2 ALS and iatrogenic volume overload - imrpoving - c/w home vent - chest pt, cough assist - nebs prn - weaning o2 as tolerated ID - severe sepsis - 2/2 biliary obstruction - resolved - completed 7 days of vanc/zosyn GI - biliary obstruction, hyperammonemia - likely has passed a gall stone - ct showing dilated gallbladder - RUQ sono distended gallbladder but no wall thickening or pericholecystic fluid - GI defers ERCP - Surgery to re-evaluate as an outpatient for cholecystectomy - advance diet as tolerated - rifaximin for elevated ammonia - unclear etiology Renal - sirisha, hypokalemia - 2/2 sepsis - resolved - replete k+ prn Heme - monitor cbc Endo - check fs, niss Lines - piv, byers PPx - gi/dvt Full Code Discharge planning
[2018-06-26] MEDS: Acetaminop/Codeine 30 MG TAB* 1 TAB (300 MG/30 MG) PO PRN ×2 (11:11→16:58)
[2018-06-27] MEDS: Acetaminop/Codeine 30 MG TAB* 1 TAB (300 MG/30 MG) PO PRN (00:20)
[2018-06-27] MEDS: Heparin VIAL(*) 5000 UNITS/ML VIAL (FIVE THOUSAND) SUBCUT SCH ×3 (05:17→21:31)
[2018-06-27 05:33] LABS: Hematocrit 37 % (42-52); Hemoglobin 12.1 g/dl (14.0-18.0); Mean Corpuscular HGB Conc 32 g/dl (31-36); Mean Corpuscular Hemoglobin 29 pg (27-31); Mean Corpuscular Volume 89 fL (80-94); Mean Platelet Volume 9.3 um3 (7.4-10.4); Platelet Count 189 10^3/ul (150-450); Red Blood Count 4.19 10^6/ul (4.00-5.40); Red Cell Distribution Width 15 % (10.5-15)
[2018-06-27 05:46] LABS: ABS Basophils 0 10^3/ul (0-0.2); ABS Eosinophils 0.8 10^3/ul (0-0.6); ABS Lymphocytes 0.2 10^3/ul (1.0-4.8); ABS Monocytes 0.6 10^3/ul (0-0.8); ABS Neutrophils 8.1 10^3/ul (1.5-7.7); ABS Nucleated RBC 0 10^3/ul; Eosinophil % 8.3 % (0-6); Nucleated Red Blood Cells % 0
[2018-06-27 05:47] LABS: EGFR Non-African American 246.7 (>60)
[2018-06-27] MEDS: Ondansetron INJ* 2 MG/ML VIAL IV PRN (08:44)
--- NOTE | 2018-06-27 09:00 | PN ---
Date of Service: 06/27/18 Critical Care Services: 72M with htn, gerd, h/o LBBB, ALS presents with AMS that started yesterday. The patient was brought to the ER and was found to have leukocytosis and abnormal LFTs. He was hypotensive and started on if fluids and antibiotics. 06/19: Mental status somewhat improved as per family. BP remains low. 06/20: Mental status and lab work improving. 06/21: Hypoxic overnight now on HFNC. Family now says patient uses home ventilator when he sleeps and will bring in today. CXR showing volume overload and atelectasis. Labwork near normal. 06/22: Patient remains confused. LFTs slightly worse this am. Episodes of atrial tachycardia overnight but asymptomatic. requesting neurology evaluation. 06/23: Labwork continues to improve. Diuresed over the past 3 days. TTE with evidence of pulm htn. Patient continues to require home vent with supplemental o2. 06/24: Continues to improve. No longer with visual hallucinations. Oxygenation improving. 06/25: Lfts improved. Was out in chair yesterday and off home vent for several hours. Still hypoxic. Ammonia 70 this AM. 06/26: ALT mildy elevated. Ammonia 58 after starting rifaximin. Down to 8L NC. Vital Signs: Temp Pulse Resp BP SpO2 FiO2 98.3 F 70 18 143/63 93 60 06/27/18 08:10 06/27/18 08:00 06/27/18 08:00 06/27/18 08:00 06/27/18 08:00 06/26 20:35 Physical Exam: Gen - NAD, Obese HEENT - NCAT, EOMI Neck - No JVD CV - s1/s2, no murmur Lungs - cta Abd - soft, nt, Ext - contracted, improved edema Neuro - answers questions appropriately, does not move extremities Fluid Balance (Past 24 Hours): I= O= Net Intake & Output 06/25/18 06/26/18 06/27/18 06/28/18 06:59 06:59 06:59 06:59 Intake Total 595.7 1329 1440 Output Total 887 1020 990 165 Balance -291.3 309 450 -165 Weight 117.48 kg 117.8 kg Intake: IV Fluids 595.7 699 ABX - VANCOMYCIN 260 300 ABX - ZOSYN 246 159 NS (0.9%) 89.7 240 IVPB 510 ABX - VANCOMYCIN 248 ABX - ZOSYN 262 Oral 120 1440 Output: Byers 887 1020 990 165 Other: Date of Last Bowel 06/24/18 06/24/18 Movement # Bowel Movements 3 Estimated Stool Amount Medium Labs: Laboratory Results - last 24 hr 06/27/18 06/27/18 06/27/18 05:10 05:10 05:10 WBC 10.0 RBC 4.19 Hgb 12.1 L Hct 37 L MCV 89 MCH 29 MCHC 32 RDW 15 Plt Count 189 MPV 9.3 Neut % (Auto) 83.1 H Lymph % (Auto) 2.0 L Burt % (Auto) 6.4 Eos % (Auto) 8.3 H Baso % (Auto) 0.2 Absolute Neuts (auto) 8.1 H Absolute Lymphs (auto) 0.2 L Absolute Monos (auto) 0.6 Absolute Eos (auto) 0.8 H Absolute Basos (auto) 0 Absolute Nucleated RBC 0 Nucleated RBC % 0 Sodium 145 Potassium 3.7 Chloride 106 Carbon Dioxide 35 H Anion Gap 4 BUN 22 Creatinine 0.35 L Est GFR ( Amer) 298.5 Est GFR (Non-Af Amer) 246.7 BUN/Creatinine Ratio 62.9 H Glucose 129 H Calcium 8.1 L Magnesium 2.1 Total Bilirubin 0.70 Direct Bilirubin 0.20 H Indirect Bilirubin 0.5 AST 46 H ALT 127 H Alkaline Phosphatase 87 Ammonia 58 H Total Protein 5.0 L Albumin 2.8 L Globulin 2.2 Albumin/Globulin Ratio 1.3 Studies: TTE 06/22 The left ventricular chamber size is normal. Unable to estimate left ventricular ejection fraction. The endocardium is not well visualized.Baseline LBBB. LV systolic function probably low normal to borderline reduced. There is septal flattening of the interventricular septum consistent with right ventricular volume or pressure overload. There is a left ventricular septal wall motion abnormality observed, possibly due to the presence of a left bundle branch block. Abnormal left ventricular diastolic function is observed. The left atrium is moderately dilated. The right ventricle is moderate to severely dilated. The right atrial cavity size is severely dilated. There is a trace of aortic regurgitation. There is trace to mild mitral regurgitation. There is moderate tricuspid regurgitation. The right ventricular systolic pressure is estimated at 57 mmHg. There is evidence of moderate pulmonary hypertension. There is trace to mild pulmonic regurgitation. There is moderate dilatation of the ascending aorta. There is mild dilatation of the aortic root. CXR 06/22 IMPRESSION: 1. MARKEDLY LIMITED STUDY. 2. LOW LUNG VOLUMES. 3. PULMONARY INTERSTITIAL EDEMA. 4. RIGHT MID AND LOWER LUNG CONSOLIDATION. CXR 06/21 IMPRESSION: INCREASED INTERSTITIAL EDEMA AND BIBASILAR AIRSPACE DISEASE. CXR 06/18 IMPRESSION: EXPIRATORY EXAMINATION. CT abd/pel 06/18 IMPRESSION: 1. There is pathologic dilatation of the gallbladder measuring up to 6.1 cm in diameter. Please correlate to signs or symptoms of acute cholecystitis and/or biliary obstruction. If clinically warranted superior characterization can be made with right upper quadrant ultrasound. 2. Small bibasilar pleural effusions and linear density most consistent with atelectasis. 3. Multiple low-attenuation structures in the bilateral kidneys, most of which have Hounsfield unit measurements consistent with simple cysts while others consistent negative attenuation indicating the presence of fat. There is no hydronephrosis. Recommend further characterization with nonemergent ultrasound. 4. There is low-attenuation replacement of the L3 vertebral body extending to the L1 and L2 vertebral bodies. The chronicity of this is unknown but could be related to prior traumatic injury resulting in the patient's reported paraplegia. Alternatively, this could be the result of infection in a patient with sepsis. 5. Contrast presumably injected into the left upper extremity is seen refluxing in the superficial veins of the left abdomen suggesting the presence of central venous obstruction or stenosis. 6. Infiltration of the subcutaneous fat overlying the bilateral low abdomen and extending to the buttocks could be consistent with anicteric/fluid overload which would also correlate to the small bibasilar pleural effusions. 7. There are additional chronic, degenerative and iatrogenic findings described in the body the report. Brain CT 06/18 IMPRESSION: #. Limited exam as noted. #. No gross evidence for intracranial hemorrhage. #. No gross evidence for mass effect. #. Negative for hydrocephalus. Cervical Spine CT 06/18 IMPRESSION: 1. DEGENERATIVE CHANGES OF THE CERVICAL SPINE WITHOUT DEFINITE EVIDENCE FOR FRACTURE OR DISLOCATION. 2. There is a low-attenuation partially calcified structure at the left lower neck suspected to be the thyroid gland. As clinically warranted superior characterization of the thyroid can be made with ultrasound. Gallbladder US 06/19 IMPRESSION: #. Limited exam as noted. #. Hepatosteatosis. #. Distended gallbladder with cholelithiasis. Negative for gallbladder wall thickening, pericholecystic fluid, or sonographic Napoles sign to strongly favor acute cholecystitis. Impression: 72M with htn, gerd, ALS, presents with AMS 2/2 severe sepsis 2/2 biliary obstruction. Acute on chronic respiratory failure. Asymptomatic atrial tachycardia. Pulm htn. Hyperammonemia. Plan: Neuro - AMS, ALS - AMS 2/2 sepsis - improving - ALS - PT consult for ROM exercises CV - hypotension, atrial tachycardia - hypotension - resolved - atrial tach - resolved - tte with RVSP 57 - likely chronic - c/w coreg/lisinopril/lasix Pulm - acute on chronic respiratory failure - 2/2 ALS and iatrogenic volume overload - imrpoving - c/w home vent - chest pt, cough assist - nebs prn - weaning o2 as tolerated ID - severe sepsis - 2/2 biliary obstruction - resolved - completed 7 days of vanc/zosyn GI - biliary obstruction, hyperammonemia - likely has passed a gall stone - LFTs slowly increasing again - will discuss with surgery and gi weather more imaging or definitive therapy is warranted - low threshold to restart abx Renal - sirisha, hypokalemia - 2/2 sepsis - resolved - replete k+ prn Heme - monitor cbc Endo - check fs, niss Lines - piv, byers PPx - gi/dvt Full Code Discharge planning
[2018-06-27] MEDS ORDERED: Potassium Chlor TAB* 20 MEQ TAB.ER PO ONE (09:03)
[2018-06-27] MEDS: Carvedilol TAB* 6.25 MG PO SCH (11:40)
[2018-06-27] MEDS: Furosemide TAB* 20 MG PO SCH (11:44)
[2018-06-27] MEDS: Lactobacillus Acidophilus* 1 TAB PO SCH ×2 (11:44→21:30)
[2018-06-27] MEDS: Baclofen TAB* 20 MG PO SCH ×2 (11:44→21:28)
[2018-06-27] MEDS: Lisinopril TAB* 10 MG PO SCH (11:44)
[2018-06-27] MEDS: Sertraline* 100 MG TAB PO SCH (11:44)
[2018-06-27] MEDS: Omeprazole CAP* 20 MG PO SCH (11:44)
[2018-06-27] MEDS: RiFAXimin* 550 MG TAB PO SCH ×2 (11:44→21:29)
--- NOTE | 2018-06-27 13:12 | RAD ---
Indication: Hypoxia. Single frontal view of the chest performed at 1245 hours was reviewed. Comparison is made with previous exam dated June 22, 2018. Cardiomegaly is noted. Interstitial edema consistent with CHF is noted. Bilateral pleural effusions are noted. IMPRESSION: PERSISTENT CHF SIMILAR TO THAT SEEN ON 2017.
[2018-06-27] MEDS ORDERED: Piperacillin/Tazobac ADVAN(*) 3.375 GM in NS 0.9% 100 ML* 100 ML IVPB ONE (13:13)
[2018-06-27] MEDS ORDERED: NS 0.9% 500 ML* 500 ML IV ONE ×2 (13:15→13:38)
--- NOTE | 2018-06-27 13:40 | PN ---
Progress Note - Progress Note Date of Service: 06/27/18 Note: PCCM Follow Up Patient becoming increasingly hypoxic and hypotensive. LFTs trending up. Patient transitioned back to home LTV vent. IV fluids and antibiotics restarted. May need central line placement. Will continue to monitor closely.
[2018-06-27] MEDS ORDERED: Norepinephrine 16MCG/ML IVPRE* 4,000 MCG/250 ML BAG IV ONE (13:53)
[2018-06-27] MEDS ORDERED: Zosyn per Pharmacy* NOTE FOLLOW UP SCH (14:00)
[2018-06-27] MEDS ORDERED: Vancomycin(*) 0 MG in NS 0.9% 250 ML* 250 ML IVPB SCH (14:00)
[2018-06-27] MEDS ORDERED: Vancomycin(*) 1,500 MG in NS 0.9% 250 ML* 250 ML IVPB ONE (14:00)
[2018-06-27] MEDS: Norepinephrine VIAL* 4 MG in NS 0.9% 250 ML* 246 ML IV ONE ×2 (14:05→19:42)
[2018-06-27] MEDS ORDERED: Vancomycin per Pharmacy* NOTE FOLLOW UP PRN (14:23)
[2018-06-27] MEDS ORDERED: NS 0.9% 1000 ML* 1,000 ML IV ONE (14:26)
--- NOTE | 2018-06-27 14:30 | OP ---
Operative Report - Blank - Operative Report Date of Operation: 06/27/18 Note: Central Venous Catheter (CVC, Central Line) Placement Date: 06/27/18 Time: 230p Indication: Hemodynamic monitoring/Intravenous access Attending: Major Reddy time-out was completed verifying correct patient, procedure, site, positioning , and special equipment if applicable. The patient was placed in a dependent position appropriate for central line placement based on the vein to be cannulated. The patients left neck was prepped and draped in sterile fashion. 1 % Lidocaine was used to anesthetize the surrounding skin area. A triple lumen 7- Monegasque catheter was introduced into the the internal jugular vein using the Seldinger technique and under ultrasound guidance. The catheter was threaded smoothly over the guide wire and appropriate blood return was obtained. Each lumen of the catheter was evacuated of air and flushed with sterile saline. The catheter was then sutured in place to the skin and a sterile dressing applied. Perfusion to the extremity distal to the point of catheter insertion was checked and found to be adequate. Estimated Blood Loss: Minimal The patient tolerated the procedure well and there were no complications.
[2018-06-27 14:47] LABS: Hematocrit 36 % (42-52); Hemoglobin 11.4 g/dl (14.0-18.0); Mean Corpuscular HGB Conc 32 g/dl (31-36); Mean Corpuscular Hemoglobin 28 pg (27-31); Mean Corpuscular Volume 89 fL (80-94); Mean Platelet Volume 8.9 um3 (7.4-10.4); Platelet Count 208 10^3/ul (150-450); Red Blood Count 4.03 10^6/ul (4.00-5.40); Red Cell Distribution Width 16 % (10.5-15); White Blood Count 10.9 10^3/ul (3.5-10.8)
[2018-06-27 14:54] LABS: INR 1.02 (0.77-1.02)
[2018-06-27 15:03] LABS: EGFR Non-African American 211.5 (>60)
[2018-06-27 15:09] LABS: ABS Basophils 0.1 10^3/ul (0-0.2); ABS Eosinophils 0.5 10^3/ul (0-0.6); ABS Lymphocytes 0.1 10^3/ul (1.0-4.8); ABS Monocytes 0.8 10^3/ul (0-0.8); ABS Neutrophils 9.4 10^3/ul (1.5-7.7); ABS Nucleated RBC 0 10^3/ul; Eosinophil % 4.9 % (0-6); Lymphocyte % 1.2 % (25-47); Nucleated Red Blood Cells % 0.1
--- NOTE | 2018-06-27 15:18 | RAD ---
Indication: Central line placement. Single frontal view of the chest performed at 1430 hours was reviewed. Comparison is made with previous exam dated June 27, 2018. Cardiomegaly and interstitial edema persists. Left-sided subclavian vein catheter in place with the tip in the superior vena cava. No pneumothorax is noted. IMPRESSION: LEFT CENTRAL LINE IN PLACE WITH THE TIP IN THE SUPERIOR VENA CAVA. NO PNEUMOTHORAX IS NOTED.
[2018-06-27] MEDS: NS 0.9% 1000 ML* 1,000 ML IV SCH ×2 (15:20→18:26)
[2018-06-27] MEDS: ZOSYN 3.375 GM Q8H per EXTENDED INFUSION IVPB SCH ×2 (20:43)
[2018-06-27] MEDS: Phenylephrine INJ* 50 MG in NS 0.9% 250 ML* 245 ML IV SCH ×2 (21:24→22:12)
[2018-06-27] MEDS ORDERED: Norepinephrine 16MCG/ML IVPRE* 4,000 MCG/250 ML BAG IV SCH (21:30)
[2018-06-27] MEDS ORDERED: Furosemide IV* 10 MG/ML VIAL (40 MG) IV ONE (22:02)
[2018-06-28] MEDS ORDERED: Norepinephrine VIAL* 4 MG in NS 0.9% 250 ML* 246 ML IVPB SCH ×2
[2018-06-28] MEDS: Vasopressin* 100 UNITS in NS 0.9% 250 ML* 245 ML IVPB SCH (00:10)
--- NOTE | 2018-06-28 00:41 | PN ---
Progress Note - Progress Note Date of Service: 06/28/18 Note: PCCM Follow Up I was called by the RN in order to update me on events that occured earlier in the evening which had been addressed by the covering hospitalist Dr. Garduno. The patient had become hypoxic and required changing to our bipap machine in order to deliver a higher oxygen concentration. The patient then had an episode recurrent atrial tachycardia at that time his levophed was discontinued and he was switched to phenylephrine. An abg was done showing severe hypercarbia with a pCO2 of 120. I came back to the hospital and evaluated the patient and discussed goals of care with the family at bedside. I explained that the hypercapnea was an indication for intubation and mechanical ventilation. They expressed that the patient had previously conveyed to them that he would not want to be intubated. His code status has been changed to DNI. I increased the patients rate and pressure settings on the bipap. Vasopressin was added as well as stress dose steroids. Critical Care Time 90 mins.
[2018-06-28] MEDS ORDERED: Hydrocortisone INJ* 100 MG VIAL IV SCH (01:00)
[2018-06-28] MEDS: Vancomycin(*) 1,000 MG in NS 0.9% 250 ML* 250 ML IVPB SCH ×2 (01:14→13:55)
[2018-06-28] MEDS: Hydrocortisone INJ* 100 MG VIAL IV SCH ×4 (01:14→20:18)
[2018-06-28] MEDS: Phenylephrine INJ* 50 MG in NS 0.9% 250 ML* 245 ML IV SCH ×6 (01:47→20:16)
[2018-06-28] MEDS ORDERED: Furosemide IV* 10 MG/ML VIAL (40 MG) IV ONE (04:00)
[2018-06-28] MEDS: ZOSYN 3.375 GM Q8H per EXTENDED INFUSION IVPB SCH ×6 (04:40→20:18)
[2018-06-28 05:38] LABS: Hematocrit 39 % (42-52); Hemoglobin 12.4 g/dl (14.0-18.0); Mean Corpuscular HGB Conc 32 g/dl (31-36); Mean Corpuscular Hemoglobin 29 pg (27-31); Mean Corpuscular Volume 91 fL (80-94); Mean Platelet Volume 9.2 um3 (7.4-10.4); Platelet Count 299 10^3/ul (150-450); Red Blood Count 4.34 10^6/ul (4.00-5.40); Red Cell Distribution Width 17 % (10.5-15)
[2018-06-28 05:43] LABS: ABS Basophils 0 10^3/ul (0-0.2); ABS Eosinophils 0.1 10^3/ul (0-0.6); ABS Lymphocytes 0.2 10^3/ul (1.0-4.8); ABS Monocytes 0.8 10^3/ul (0-0.8); ABS Neutrophils 15.9 10^3/ul (1.5-7.7); ABS Nucleated RBC 0 10^3/ul; Eosinophil % 0.9 % (0-6); Lymphocyte % 1.2 % (25-47); Nucleated Red Blood Cells % 0.1
[2018-06-28 05:52] LABS: EGFR Non-African American 143.4 (>60)
[2018-06-28] MEDS: Heparin VIAL(*) 5000 UNITS/ML VIAL (FIVE THOUSAND) SUBCUT SCH (06:05)
[2018-06-28] MEDS: Omeprazole CAP* 20 MG PO SCH (08:08)
[2018-06-28] MEDS: Lactobacillus Acidophilus* 1 TAB PO SCH ×2 (08:08→21:23)
[2018-06-28] MEDS: RiFAXimin* 550 MG TAB PO SCH ×2 (08:08→21:23)
[2018-06-28] MEDS: Baclofen TAB* 20 MG PO SCH ×2 (08:08→21:23)
[2018-06-28] MEDS: Sertraline* 100 MG TAB PO SCH (08:09)
[2018-06-28] MEDS ORDERED: Pantoprazole IV* 80 MG in NS 0.9% 250 ML* 250 ML IVPB SCH (09:00)
--- NOTE | 2018-06-28 09:03 | PN ---
Date of Service: 06/28/18 Critical Care Services: 72M with htn, gerd, h/o LBBB, ALS presents with AMS that started yesterday. The patient was brought to the ER and was found to have leukocytosis and abnormal LFTs. He was hypotensive and started on if fluids and antibiotics. 06/19: Mental status somewhat improved as per family. BP remains low. 06/20: Mental status and lab work improving. 06/21: Hypoxic overnight now on HFNC. Family now says patient uses home ventilator when he sleeps and will bring in today. CXR showing volume overload and atelectasis. Labwork near normal. 06/22: Patient remains confused. LFTs slightly worse this am. Episodes of atrial tachycardia overnight but asymptomatic. requesting neurology evaluation. 06/23: Labwork continues to improve. Diuresed over the past 3 days. TTE with evidence of pulm htn. Patient continues to require home vent with supplemental o2. 06/24: Continues to improve. No longer with visual hallucinations. Oxygenation improving. 06/25: Lfts improved. Was out in chair yesterday and off home vent for several hours. Still hypoxic. Ammonia 70 this AM. 06/26: ALT mildy elevated. Ammonia 58 after starting rifaximin. Down to 8L NC. 06/27: Patient with rapid decline. Hypoxic. Hypercapnic. Hypotensive. AMS. Changed to hosp bipap. TLC placed. Pressors. Abx. Patient DNI. 06/28: New pulsatile bleeding seen in the leti-anal area. Pressure held until hemostasis achieved. Surgery evaluated at bedside. Discussed with family. Patient is DNR/DNI. Vital Signs: Temp Pulse Resp BP SpO2 FiO2 37.0 F 71 3 127/47 92 70 06/28/18 04:00 06/28/18 08:15 06/28/18 08:15 06/28/18 08:15 06/28/18 08:15 06/28 05:00 Physical Exam: Gen - acutely ill Obese HEENT - NCAT, EOMI Neck - No JVD CV - s1/s2, no murmur Lungs - cta Abd - soft, nt, Ext - contracted, improved edema Neuro - answers questions appropriately, does not move extremities Fluid Balance (Past 24 Hours): I= O= Net Intake & Output 06/26/18 06/27/18 06/28/18 09/11/18 06:59 06:59 06:59 06:59 Intake Total 1329 1440 5603 Output Total 9353 584 3035 30 Balance 254 865 1509 -30 Weight 117.48 kg 117.8 kg 122.9 kg Intake: IV Fluids 699 4114 ABX - VANCOMYCIN 300 ABX - ZOSYN 159 36 NS (0.9%) 240 4078 IVPB 510 348 ABX - VANCOMYCIN 248 ABX - ZOSYN 262 348 Medicated IV 841 CC - Norepinephrine/ 340 Levophed CC - Phenylephrine/ 466 Neosynephrine CC - Vasopressin/ 35 Pitressin Oral 120 1440 300 Output: Byers 4861 111 6399 30 Other: Date of Last Bowel 06/24/18 06/24/18 Movement Labs: Laboratory Results - last 24 hr 06/27/18 06/27/18 06/27/18 14:36 14:36 14:36 WBC 10.9 H RBC 4.03 Hgb 11.4 L Hct 36 L MCV 89 MCH 28 MCHC 32 RDW 16 H Plt Count 208 MPV 8.9 Neut % (Auto) 86.1 H Lymph % (Auto) 1.2 L [place] % (Auto) 7.2 H Eos % (Auto) 4.9 Baso % (Auto) 0.6 Absolute Neuts (auto) 9.4 H Absolute Lymphs (auto) 0.1 L Absolute Monos (auto) 0.8 Absolute Eos (auto) 0.5 Absolute Basos (auto) 0.1 Absolute Nucleated RBC 0 Nucleated RBC % 0.1 INR (Anticoag Therapy) 1.02 Patient Temperature ABG pH ABG pH (Temp Correct) ABG pCO2 ABG pCO2 (Temp Corrct ABG pO2 ABG pO2 (Temp Correct ABG HCO3 ABG O2 Saturation ABG Base Excess VBG pH VBG pCO2 VBG pO2 VBG HCO3 VBG O2 Saturation VBG Base Excess Respiration Rate Ventilator Type Vent Mode FiO2 Inspiratory Time PEEP Pressure Support Pressure Control EPAP IPAP BiPAP Sodium 145 Potassium 4.3 Chloride 108 Carbon Dioxide 36 H Anion Gap 1 L BUN 22 Creatinine 0.40 L Est GFR ( Amer) 255.9 Est GFR (Non-Af Amer) 211.5 BUN/Creatinine Ratio 55.0 H Glucose 155 H Lactic Acid Calcium 7.7 L Magnesium 2.0 Total Bilirubin 0.60 Direct Bilirubin 0.30 H Indirect Bilirubin 0.3 AST 49 H ALT 123 H Alkaline Phosphatase 88 Ammonia B-Natriuretic Peptide Total Protein 4.8 L Albumin 2.5 L Globulin 2.3 Albumin/Globulin Ratio 1.1 Procalcitonin 06/27/18 06/27/18 06/27/18 14:36 14:36 20:49 WBC RBC Hgb Hct MCV MCH MCHC RDW Plt Count MPV Neut % (Auto) Lymph % (Auto) [place] % (Auto) Eos % (Auto) Baso % (Auto) Absolute Neuts (auto) Absolute Lymphs (auto) Absolute Monos (auto) Absolute Eos (auto) Absolute Basos (auto) Absolute Nucleated RBC Nucleated RBC % INR (Anticoag Therapy) Patient Temperature ABG pH ABG pH (Temp Correct) ABG pCO2 ABG pCO2 (Temp Corrct ABG pO2 ABG pO2 (Temp Correct ABG HCO3 ABG O2 Saturation ABG Base Excess VBG pH 7.17 L VBG pCO2 105 H VBG pO2 48 H VBG HCO3 29.7 H VBG O2 Saturation 86.1 H VBG Base Excess 6.6 H Respiration Rate Ventilator Type Vent Mode FiO2 Inspiratory Time PEEP Pressure Support Pressure Control EPAP IPAP BiPAP Sodium Potassium Chloride Carbon Dioxide Anion Gap BUN Creatinine Est GFR ( Amer) Est GFR (Non-Af Amer) BUN/Creatinine Ratio Glucose Lactic Acid 0.5 Calcium Magnesium Total Bilirubin Direct Bilirubin Indirect Bilirubin AST ALT Alkaline Phosphatase Ammonia B-Natriuretic Peptide 421 H Total Protein Albumin Globulin Albumin/Globulin Ratio Procalcitonin 06/27/18 06/27/18 06/27/18 20:49 20:49 23:05 WBC RBC Hgb Hct MCV MCH MCHC RDW Plt Count MPV Neut % (Auto) Lymph % (Auto) [place] % (Auto) Eos % (Auto) Baso % (Auto) Absolute Neuts (auto) Absolute Lymphs (auto) Absolute Monos (auto) Absolute Eos (auto) Absolute Basos (auto) Absolute Nucleated RBC Nucleated RBC % INR (Anticoag Therapy) Patient Temperature Not Reportable ABG pH 7.07 L* ABG pH (Temp Correct) Not Reportable ABG pCO2 120 H* ABG pCO2 (Temp Corrct Not Reportable ABG pO2 184 H ABG pO2 (Temp Correct Not Reportable ABG HCO3 25.9 ABG O2 Saturation 99.7 H ABG Base Excess 1.3 VBG pH VBG pCO2 VBG pO2 VBG HCO3 VBG O2 Saturation VBG Base Excess Respiration Rate Not Reportable Ventilator Type Not Reportable Vent Mode Not Reportable FiO2 100 Inspiratory Time Not Reportable PEEP Not Reportable Pressure Support Not Reportable Pressure Control Not Reportable EPAP 8 IPAP 16 BiPAP Not Reportable Sodium Potassium Chloride Carbon Dioxide Anion Gap BUN Creatinine Est GFR ( Amer) Est GFR (Non-Af Amer) BUN/Creatinine Ratio Glucose Lactic Acid 0.5 Calcium Magnesium Total Bilirubin Direct Bilirubin Indirect Bilirubin AST ALT Alkaline Phosphatase Ammonia B-Natriuretic Peptide Total Protein Albumin Globulin Albumin/Globulin Ratio Procalcitonin < 0.1 06/28/18 06/28/18 06/28/18 01:07 05:18 05:22 WBC RBC Hgb Hct MCV MCH MCHC RDW Plt Count MPV Neut % (Auto) Lymph % (Auto) [place] % (Auto) Eos % (Auto) Baso % (Auto) Absolute Neuts (auto) Absolute Lymphs (auto) Absolute Monos (auto) Absolute Eos (auto) Absolute Basos (auto) Absolute Nucleated RBC Nucleated RBC % INR (Anticoag Therapy) Patient Temperature Not Reportable ABG pH 7.10 L* 7.13 L* ABG pH (Temp Correct) Not Reportable ABG pCO2 103 H* 91 H* ABG pCO2 (Temp Corrct Not Reportable ABG pO2 64 L 67 L ABG pO2 (Temp Correct Not Reportable ABG HCO3 24.6 23.9 ABG O2 Saturation 97.4 96.3 ABG Base Excess -0.3 -1.2 VBG pH VBG pCO2 VBG pO2 VBG HCO3 VBG O2 Saturation VBG Base Excess Respiration Rate Not Reportable Ventilator Type Not Reportable Vent Mode Not Reportable FiO2 70 Inspiratory Time Not Reportable PEEP Not Reportable Pressure Support Not Reportable Pressure Control Not Reportable EPAP Not Reportable IPAP 8 BiPAP 20 Sodium Potassium Chloride Carbon Dioxide Anion Gap BUN Creatinine Est GFR ( Amer) Est GFR (Non-Af Amer) BUN/Creatinine Ratio Glucose Lactic Acid Calcium Magnesium Total Bilirubin Direct Bilirubin Indirect Bilirubin AST ALT Alkaline Phosphatase Ammonia 102 H B-Natriuretic Peptide Total Protein Albumin Globulin Albumin/Globulin Ratio Procalcitonin 06/28/18 06/28/18 05:22 05:22 WBC 17.0 H RBC 4.34 Hgb 12.4 L Hct 39 L MCV 91 MCH 29 MCHC 32 RDW 17 H Plt Count 299 MPV 9.2 Neut % (Auto) 93.2 H Lymph % (Auto) 1.2 L [place] % (Auto) 4.6 Eos % (Auto) 0.9 Baso % (Auto) 0.1 Absolute Neuts (auto) 15.9 H Absolute Lymphs (auto) 0.2 L Absolute Monos (auto) 0.8 Absolute Eos (auto) 0.1 Absolute Basos (auto) 0 Absolute Nucleated RBC 0 Nucleated RBC % 0.1 INR (Anticoag Therapy) Patient Temperature ABG pH ABG pH (Temp Correct) ABG pCO2 ABG pCO2 (Temp Corrct ABG pO2 ABG pO2 (Temp Correct ABG HCO3 ABG O2 Saturation ABG Base Excess VBG pH VBG pCO2 VBG pO2 VBG HCO3 VBG O2 Saturation VBG Base Excess Respiration Rate Ventilator Type Vent Mode FiO2 Inspiratory Time PEEP Pressure Support Pressure Control EPAP IPAP BiPAP Sodium 145 Potassium 4.3 Chloride 110 Carbon Dioxide 31 Anion Gap 4 BUN 25 H Creatinine 0.56 L Est GFR ( Amer) 173.5 Est GFR (Non-Af Amer) 143.4 BUN/Creatinine Ratio 44.6 H Glucose 147 H Lactic Acid Calcium 7.7 L Magnesium 2.0 Total Bilirubin 0.80 Direct Bilirubin 0.30 H Indirect Bilirubin 0.5 AST 54 H ALT 155 H Alkaline Phosphatase 95 Ammonia B-Natriuretic Peptide Total Protein 5.1 L Albumin 2.9 L Globulin 2.2 Albumin/Globulin Ratio 1.3 Procalcitonin Studies: TTE 06/22 The left ventricular chamber size is normal. Unable to estimate left ventricular ejection fraction. The endocardium is not well visualized.Baseline LBBB. LV systolic function probably low normal to borderline reduced. There is septal flattening of the interventricular septum consistent with right ventricular volume or pressure overload. There is a left ventricular septal wall motion abnormality observed, possibly due to the presence of a left bundle branch block. Abnormal left ventricular diastolic function is observed. The left atrium is moderately dilated. The right ventricle is moderate to severely dilated. The right atrial cavity size is severely dilated. There is a trace of aortic regurgitation. There is trace to mild mitral regurgitation. There is moderate tricuspid regurgitation. The right ventricular systolic pressure is estimated at 57 mmHg. There is evidence of moderate pulmonary hypertension. There is trace to mild pulmonic regurgitation. There is moderate dilatation of the ascending aorta. There is mild dilatation of the aortic root. CXR 06/22 IMPRESSION: 1. MARKEDLY LIMITED STUDY. 2. LOW LUNG VOLUMES. 3. PULMONARY INTERSTITIAL EDEMA. 4. RIGHT MID AND LOWER LUNG CONSOLIDATION. CXR 06/21 IMPRESSION: INCREASED INTERSTITIAL EDEMA AND BIBASILAR AIRSPACE DISEASE. CXR 06/18 IMPRESSION: EXPIRATORY EXAMINATION. CT abd/pel 06/18 IMPRESSION: 1. There is pathologic dilatation of the gallbladder measuring up to 6.1 cm in diameter. Please correlate to signs or symptoms of acute cholecystitis and/or biliary obstruction. If clinically warranted superior characterization can be made with right upper quadrant ultrasound. 2. Small bibasilar pleural effusions and linear density most consistent with atelectasis. 3. Multiple low-attenuation structures in the bilateral kidneys, most of which have Hounsfield unit measurements consistent with simple cysts while others consistent negative attenuation indicating the presence of fat. There is no hydronephrosis. Recommend further characterization with nonemergent ultrasound. 4. There is low-attenuation replacement of the L3 vertebral body extending to the L1 and L2 vertebral bodies. The chronicity of this is unknown but could be related to prior traumatic injury resulting in the patient's reported paraplegia. Alternatively, this could be the result of infection in a patient with sepsis. 5. Contrast presumably injected into the left upper extremity is seen refluxing in the superficial veins of the left abdomen suggesting the presence of central venous obstruction or stenosis. 6. Infiltration of the subcutaneous fat overlying the bilateral low abdomen and extending to the buttocks could be consistent with anicteric/fluid overload which would also correlate to the small bibasilar pleural effusions. 7. There are additional chronic, degenerative and iatrogenic findings described in the body the report. Brain CT 06/18 IMPRESSION: #. Limited exam as noted. #. No gross evidence for intracranial hemorrhage. #. No gross evidence for mass effect. #. Negative for hydrocephalus. Cervical Spine CT 06/18 IMPRESSION: 1. DEGENERATIVE CHANGES OF THE CERVICAL SPINE WITHOUT DEFINITE EVIDENCE FOR FRACTURE OR DISLOCATION. 2. There is a low-attenuation partially calcified structure at the left lower neck suspected to be the thyroid gland. As clinically warranted superior characterization of the thyroid can be made with ultrasound. Gallbladder US 06/19 IMPRESSION: #. Limited exam as noted. #. Hepatosteatosis. #. Distended gallbladder with cholelithiasis. Negative for gallbladder wall thickening, pericholecystic fluid, or sonographic Napoles sign to strongly favor acute cholecystitis. Impression: 72M with htn, gerd, ALS, presents with AMS 2/2 severe sepsis 2/2 biliary obstruction. Acute on chronic respiratory failure. Asymptomatic atrial tachycardia. Pulm htn. Hyperammonemia. Plan: Neuro - AMS, ALS - poor mental status from elevated ammonia and hypercarbia CV - hypotension - 2/2 septic shock - pressors as needed - iv hydration Pulm - acute on chronic respiratory failure, hypercapnea, hypoxia - 2/2 pna?/ards/als - bipap and wean as tolerated ID - septic shock - 2/2 biliary obstruction vs hcap - vanc zosyn restarted - ID consult with Dr. Ornelas - lactate normal - iv hydration GI - biliary obstruction, hyperammonemia - repeat gb ultrasound - monitor lfts - rifaximin - GI and surgery following Renal - sirisha, hypokalemia - 2/2 sepsis - monitor i/o - monitor lytes Heme - rectal bleeding - hemostasis achieved with pressure - evaluated by surgery - monitor cbc Endo - check fs, niss Lines - TLC, byers PPx - gi/dvt DNR/DNI Critical Care Time: 55 mins
[2018-06-28 09:13] LABS: Hematocrit 38 % (42-52); Hemoglobin 11.8 g/dl (14.0-18.0); Mean Corpuscular HGB Conc 31 g/dl (31-36); Mean Corpuscular Hemoglobin 28 pg (27-31); Mean Corpuscular Volume 91 fL (80-94); Mean Platelet Volume 9.1 um3 (7.4-10.4); Platelet Count 283 10^3/ul (150-450); Red Blood Count 4.17 10^6/ul (4.00-5.40); Red Cell Distribution Width 16 % (10.5-15); White Blood Count 16.9 10^3/ul (3.5-10.8)
[2018-06-28] MEDS ORDERED: Octreotide Acetate* 50 MCG in NS 0.9% 50 ML* 50 ML IVPB ONE (09:15)
[2018-06-28] MEDS ORDERED: Octreotide Acetate* 500 MCG in NS 0.9% 100 ML* 100 ML IVPB SCH ×4 (09:30)
[2018-06-28 09:42] LABS: ABS Basophils 0 10^3/ul (0-0.2); ABS Eosinophils 0.1 10^3/ul (0-0.6); ABS Lymphocytes 0.2 10^3/ul (1.0-4.8); ABS Monocytes 0.8 10^3/ul (0-0.8); ABS Neutrophils 15.8 10^3/ul (1.5-7.7)
[2018-06-28 09:49] LABS: ABS Basophils 0 10^3/ul (0-0.2); ABS Neutrophils 15.9 10^3/ul (1.5-7.7); Monocytes % 4 % (0-7)
[2018-06-28] MEDS ORDERED: Morphine INJ* 2 MG/ML 1 ML SYRINGE (TWO MG - NEW SYRINGE VERSION) ONE (10:22)
[2018-06-28] MEDS ORDERED: Morphine INJ* 2 MG/ML 1 ML SYRINGE (TWO MG - NEW SYRINGE VERSION) IV ONE (10:25)
--- NOTE | 2018-06-28 13:02 | RAD ---
INDICATION: Biliary obstruction. COMPARISON: Comparison is made with a prior CT of the abdomen and pelvis from June 18, 2018. Correlation is also made with a prior right upper quadrant ultrasound from June 19, 2018. TECHNIQUE: Multiple real-time images of the right upper quadrant were obtained. The exam is limited due to the patient's body habitus. FINDINGS: The gallbladder is distended. There are gallstones in the neck of the gallbladder. No gallbladder wall thickening, pericholecystic fluid or positive sonographic Napoles sign is seen. No intra or extrahepatic ductal distention is present. The common bile duct measured 0.5 cm in diameter. The liver is normal in size and increased in echogenicity which correlates with fatty infiltration as seen on the prior CT study. No focal abnormality is seen although the study is limited. The pancreas is obscured by overlying bowel gas. The right kidney measures 8.1 x 4.5 x 5.7 cm. No hydronephrosis is seen. There is limited visualization of the kidney. IMPRESSION: 1. LIMITED STUDY. 2. CHOLELITHIASIS AND DISTENDED GALLBLADDER PREVIOUSLY NOTED WITHOUT SPECIFIC EVIDENCE FOR ACUTE CHOLECYSTITIS. 3. FINDINGS CONSISTENT WITH HEPATIC STEATOSIS. THERE IS NO EVIDENCE FOR BILIARY OBSTRUCTION.
--- NOTE | 2018-06-28 13:59 | RAD ---
INDICATION: Respiratory failure. COMPARISON: Comparison is made with a prior chest x-ray study from June 27, 2018. TECHNIQUE: A portable view of the chest was obtained. FINDINGS: There is near complete opacification of the right hemithorax which is new from the prior exam. The trachea is slightly shifted toward the right side. There is a patchy infiltrate present in the left upper lobe and at the left lung base. There is a small left pleural effusion. The left heart border is obscured by the right lung opacification. The left heart border appears to be within normal limits and not grossly enlarged. There is a central venous catheter entering from the left side. The catheter tip projects in the right paratracheal region. IMPRESSION: 1. NEAR COMPLETE OPACIFICATION OF THE RIGHT HEMITHORAX SUGGESTIVE OF COLLAPSE OR PNEUMONIA LESS LIKELY A LARGE PLEURAL EFFUSION. 2. PATCHY LEFT LUNG INFILTRATE AND SMALL LEFT PLEURAL EFFUSION SLIGHTLY PROGRESSED.
[2018-06-28 14:41] LABS: Hematocrit 37 % (42-52); Hemoglobin 11.5 g/dl (14.0-18.0); Mean Corpuscular HGB Conc 31 g/dl (31-36); Mean Corpuscular Hemoglobin 28 pg (27-31); Mean Corpuscular Volume 90 fL (80-94); Platelet Count 281 10^3/ul (150-450); Red Blood Count 4.07 10^6/ul (4.00-5.40); Red Cell Distribution Width 16 % (10.5-15); White Blood Count 18.7 10^3/ul (3.5-10.8)
--- NOTE | 2018-06-28 15:48 | CONS ---
CONSULTATION REPORT: DATE OF CONSULT: 06/28/18 REQUESTING PHYSICIAN: Dr. Gonsalves. CONSULTING SERVICE: Infectious Disease. REASON FOR CONSULT: Leukocytosis, transaminitis, right lung infiltrate. IMPRESSION: 1. Admitted with sepsis, resolved on vancomycin and Zosyn, recurred after stopping the antibiotics, suggests deeper focus of infection. The differential diagnosis includes pneumonia, does have a right lung infiltrate, given this transaminitis, biliary source is a consideration; however, his ultrasound has shown only enlarged gallbladder without stones, CT scan from admission shows infiltrative process of the lumbar spine at L1 through L3, he could have vertebral osteomyelitis, which could recur after a short course of antibiotics. 2. Amyotrophic lateral sclerosis with chronic quadriplegia. 3. History of right hip open reduction internal fixation. RECOMMENDATION: Agree with broad-spectrum antibiotics, vancomycin goal trough 10 to 15 and Zosyn, he had repeat cultures sent yesterday which are pending and so far negative. Once he is more stable, I will have an MRI of his lumbar spine to further evaluate that process to determine long-term treatment. HISTORY OF PRESENT ILLNESS: This 72-year-old male with ALS admitted on 06/18/18 , at that time with headache, chills, malaise. He was treated for sepsis with IV fluid hydration, broad-spectrum antibiotics, vanco and Zosyn, for a week. His symptoms improved; he had transaminitis, which also improved; leukocytosis, which improved. He had not been febrile. Gallbladder ultrasound showed distended gallbladder, no wall thickening or fluid. After he completed a week of antibiotics and was much improved, those were stopped and then on 06/27/18, he had respiratory distress, went back on BiPAP, required pressors for shock. He had had a right- sided infiltrate, which was persistent on x-ray done on 07/06. A central line placed, blood cultures sent which were negative. Gallbladder ultrasound repeated today was essentially unchanged, that was done as his LFTs started to climb again up to the 120s; they have been as low as the 70s on 06/23/18 and 06/24/18. He has had occasional diarrhea here according to the nurse, had not had diarrhea before he came to the hospital. He has had 1 or 2 loose stools since going back on the antibiotics. He cannot provide the history, which was obtained instead from discussion with Dr. Gonsalves and with the patient's . PAST MEDICAL HISTORY: 1. ALS with quadriplegia. 2. History of pneumonia. 3. Hypertension. 4. Left bundle branch block. 5. Gastroesophageal reflux disease. 6. Status post appendectomy. 7. Status post right hip open reduction internal fixation. MEDICATIONS: 1. Albuterol. 2. Baclofen. 3. Lasix. 4. Lactobacillus. 5. Morphine as needed. 6. Norepinephrine infusion. 7. Phenylephrine infusion. 8. Zosyn 3.375 g every 8 hours. 9. Rifaximin. 10. Vancomycin 1 g every 12 hours. ALLERGIES: ROCEPHIN caused rash, ASPIRIN. FAMILY HISTORY: No recurrent infection or tuberculosis. SOCIAL HISTORY: He lives in [place], [place], with his , visiting family in [place]. No other travel. Does not have significant other exposure. REVIEW OF SYSTEMS: Unobtainable given his overall debilitation. PHYSICAL EXAM: Vital Signs: Temperature 36.7, heart rate 70, respiratory rate 12, blood pressure 125/47, oxygen saturation 98%, he is on BiPAP rate 15 L per minute, FiO2 0.7. In general, he arouses to voice and touch. He answered some questions by nodding. He notes being able to feel palpation of his hands and feet. HEENT: There is no conjunctival hemorrhage. Oropharynx without lesions. Neck: Supple without mass. Heart: Regular rate and rhythm without murmurs, rubs, or gallops. Lungs: Coarse breath sounds bilaterally without wheeze or rale. Abdomen: Soft, nontender, and nondistended. There are bowel sounds present. There is no right upper quadrant tenderness. Skin: There is no rash or splinter hemorrhage. Musculoskeletal: There is bilateral lower extremity edema. There is no joint synovitis. LABORATORY DATA: Creatinine 0.4. White blood cell count 16, hemoglobin 11, platelets 283. Please see impressions and recommendations outlined above, which I have discussed with Dr. Gonsalves. Thanks for asking me to see Mr. Lema in consultation. [id number]/[facility] #: [id number] MTDD
[2018-06-28] MEDS: Albuterol 2.5 MG/3 ML NEB.SOL* (0.083%) INH PRN ×2 (18:05→23:13)
[2018-06-29] MEDS: Vancomycin(*) 1,000 MG in NS 0.9% 250 ML* 250 ML IVPB SCH ×2 (01:00→13:35)
[2018-06-29] MEDS: Hydrocortisone INJ* 100 MG VIAL IV SCH ×4 (01:00→20:36)
[2018-06-29] MEDS: Phenylephrine INJ* 50 MG in NS 0.9% 250 ML* 245 ML IV SCH ×2 (01:01→05:38)
[2018-06-29] MEDS: Vasopressin* 100 UNITS in NS 0.9% 250 ML* 245 ML IVPB SCH (01:06)
[2018-06-29] MEDS: ZOSYN 3.375 GM Q8H per EXTENDED INFUSION IVPB SCH ×6 (04:01→20:37)
[2018-06-29 05:38] LABS: ABS Basophils 0 10^3/ul (0-0.2); ABS Eosinophils 0 10^3/ul (0-0.6); ABS Lymphocytes 0.2 10^3/ul (1.0-4.8); ABS Monocytes 0.6 10^3/ul (0-0.8); ABS Neutrophils 11.2 10^3/ul (1.5-7.7); ABS Nucleated RBC 0 10^3/ul; Eosinophil % 0.1 % (0-6); Hematocrit 34 % (42-52); Hemoglobin 10.6 g/dl (14.0-18.0); Lymphocyte % 1.3 % (25-47); Mean Corpuscular HGB Conc 32 g/dl (31-36); Mean Corpuscular Hemoglobin 28 pg (27-31); Mean Corpuscular Volume 89 fL (80-94); Mean Platelet Volume 9.1 um3 (7.4-10.4); Nucleated Red Blood Cells % 0; Platelet Count 198 10^3/ul (150-450); Red Blood Count 3.76 10^6/ul (4.00-5.40); Red Cell Distribution Width 16 % (10.5-15)
[2018-06-29 06:01] LABS: EGFR Non-African American 85.1 (>60)
[2018-06-29] MEDS: Albuterol 2.5 MG/3 ML NEB.SOL* (0.083%) INH PRN (07:57)
--- NOTE | 2018-06-29 08:20 | PN ---
Date of Service: 06/29/18 Critical Care Services: 72M with htn, gerd, h/o LBBB, ALS presents with AMS that started yesterday. The patient was brought to the ER and was found to have leukocytosis and abnormal LFTs. He was hypotensive and started on if fluids and antibiotics. 06/19: Mental status somewhat improved as per family. BP remains low. 06/20: Mental status and lab work improving. 06/21: Hypoxic overnight now on HFNC. Family now says patient uses home ventilator when he sleeps and will bring in today. CXR showing volume overload and atelectasis. Labwork near normal. 06/22: Patient remains confused. LFTs slightly worse this am. Episodes of atrial tachycardia overnight but asymptomatic. requesting neurology evaluation. 06/23: Labwork continues to improve. Diuresed over the past 3 days. TTE with evidence of pulm htn. Patient continues to require home vent with supplemental o2. 06/24: Continues to improve. No longer with visual hallucinations. Oxygenation improving. 06/25: Lfts improved. Was out in chair yesterday and off home vent for several hours. Still hypoxic. Ammonia 70 this AM. 06/26: ALT mildy elevated. Ammonia 58 after starting rifaximin. Down to 8L NC. 06/27: Patient with rapid decline. Hypoxic. Hypercapnic. Hypotensive. AMS. Changed to hosp bipap. TLC placed. Pressors. Abx. Patient DNI. 06/28: New pulsatile bleeding seen in the leti-anal area. Pressure held until hemostasis achieved. Surgery evaluated at bedside. Discussed with family. Patient is DNR/DNI. 06/29: Labs slightly improved. Off pressors this am, however, more lethargic. Vital Signs: Temp Pulse Resp BP SpO2 FiO2 96 F 74 38 101/45 92 90 06/29/18 07:22 06/29/18 07:59 06/29/18 07:59 06/29/18 07:00 06/29/18 07:59 06/29 07:59 Physical Exam: Gen - lethargic Obese HEENT - NCAT, EOMI Neck - No JVD CV - s1/s2, no murmur Lungs - dec bs, R > L Abd - soft, nt, Ext - contracted, improved edema Neuro - lethargic. does not move extremities. Fluid Balance (Past 24 Hours): I= O= Net Intake & Output 06/27/18 06/28/18 06/29/18 06/30/18 06:59 06:59 06:59 06:59 Intake Total 1440 5603 2691 Output Total 990 1010 883 37 Balance 450 4593 1808 -37 Weight 117.8 kg 122.9 kg 124.738 kg Intake: IV Fluids 4114 1139 ABX - VANCOMYCIN 326 ABX - ZOSYN 36 116 NS (0.9%) 4078 697 IVPB 348 495 ABX - VANCOMYCIN 316 ABX - ZOSYN 348 179 Medicated IV 841 1057 CC - Norepinephrine/ 340 Levophed CC - Phenylephrine/ 466 914 Neosynephrine CC - Vasopressin/ 35 143 Pitressin Oral 1440 300 Output: Byers 990 1010 883 37 Other: Date of Last Bowel 06/24/18 Movement Labs: Laboratory Results - last 24 hr 06/28/18 06/28/18 06/28/18 09:00 09:00 14:30 WBC 16.9 H 18.7 H RBC 4.17 4.07 Hgb 11.8 L 11.5 L Hct 38 L 37 L MCV 91 90 MCH 28 28 MCHC 31 31 RDW 16 H 16 H Plt Count 283 281 MPV 9.1 9.0 Neut % (Auto) Not Reportable Not Reportable Lymph % (Auto) Not Reportable Not Reportable [place] % (Auto) Not Reportable Not Reportable Eos % (Auto) Not Reportable Not Reportable Baso % (Auto) Not Reportable Not Reportable Absolute Neuts (auto) 15.8 H Not Reportable Absolute Lymphs (auto) 0.2 L Not Reportable Absolute Monos (auto) 0.8 Not Reportable Absolute Eos (auto) 0.1 Not Reportable Absolute Basos (auto) 0 Not Reportable Absolute Nucleated RBC Not Reportable Not Reportable Neutrophils % 94 H Lymphocytes % 2 L Monocytes % 4 Eosinophils % 0 Basophils % 0 Nucleated RBC % Not Reportable Not Reportable Abs Neuts (Manual) 15.9 H Abs Lymphs (Manual) 0.3 L Abs Monocytes (Manual) 0.7 Absolute Eos (Manual) 0 Abs Basophils (Manual) 0 Normal RBC Morphology Not Reportable Basophilic Stippling 1+ Hem Pathologist Commnt ABG pH ABG pCO2 ABG pO2 ABG HCO3 ABG O2 Saturation ABG Base Excess Sodium Potassium Chloride Carbon Dioxide Anion Gap BUN Creatinine Est GFR ( Amer) Est GFR (Non-Af Amer) BUN/Creatinine Ratio Glucose Calcium Magnesium Total Bilirubin Direct Bilirubin Indirect Bilirubin AST ALT Alkaline Phosphatase Ammonia Total Protein Albumin Globulin Albumin/Globulin Ratio Blood Type O Positive Antibody Screen Negative 06/29/18 06/29/18 06/29/18 04:35 05:20 05:20 WBC RBC Hgb Hct MCV MCH MCHC RDW Plt Count MPV Neut % (Auto) Lymph % (Auto) [place] % (Auto) Eos % (Auto) Baso % (Auto) Absolute Neuts (auto) Absolute Lymphs (auto) Absolute Monos (auto) Absolute Eos (auto) Absolute Basos (auto) Absolute Nucleated RBC Neutrophils % Lymphocytes % Monocytes % Eosinophils % Basophils % Nucleated RBC % Abs Neuts (Manual) Abs Lymphs (Manual) Abs Monocytes (Manual) Absolute Eos (Manual) Abs Basophils (Manual) Normal RBC Morphology Basophilic Stippling Hem Pathologist Commnt ABG pH 7.24 L ABG pCO2 60 H ABG pO2 65 L ABG HCO3 23.0 ABG O2 Saturation 96.5 ABG Base Excess -2.4 L Sodium 147 H Potassium 3.9 Chloride 111 Carbon Dioxide 26 Anion Gap 10 BUN 34 H Creatinine 0.88 Est GFR ( Amer) 103.0 Est GFR (Non-Af Amer) 85.1 BUN/Creatinine Ratio 38.6 H Glucose 164 H Calcium 7.8 L Magnesium 2.1 Total Bilirubin 0.60 Direct Bilirubin 0.20 H Indirect Bilirubin 0.4 AST 44 H ALT 140 H Alkaline Phosphatase 91 Ammonia 77 H Total Protein 5.1 L Albumin 2.8 L Globulin 2.3 Albumin/Globulin Ratio 1.2 Blood Type Antibody Screen 06/29/18 05:20 WBC 12.0 H RBC 3.76 L Hgb 10.6 L Hct 34 L MCV 89 MCH 28 MCHC 32 RDW 16 H Plt Count 198 MPV 9.1 Neut % (Auto) 93.5 H Lymph % (Auto) 1.3 L [place] % (Auto) 4.9 Eos % (Auto) 0.1 Baso % (Auto) 0.2 Absolute Neuts (auto) 11.2 H Absolute Lymphs (auto) 0.2 L Absolute Monos (auto) 0.6 Absolute Eos (auto) 0 Absolute Basos (auto) 0 Absolute Nucleated RBC 0 Neutrophils % Lymphocytes % Monocytes % Eosinophils % Basophils % Nucleated RBC % 0 Abs Neuts (Manual) Abs Lymphs (Manual) Abs Monocytes (Manual) Absolute Eos (Manual) Abs Basophils (Manual) Normal RBC Morphology Basophilic Stippling Hem Pathologist Commnt ABG pH ABG pCO2 ABG pO2 ABG HCO3 ABG O2 Saturation ABG Base Excess Sodium Potassium Chloride Carbon Dioxide Anion Gap BUN Creatinine Est GFR ( Amer) Est GFR (Non-Af Amer) BUN/Creatinine Ratio Glucose Calcium Magnesium Total Bilirubin Direct Bilirubin Indirect Bilirubin AST ALT Alkaline Phosphatase Ammonia Total Protein Albumin Globulin Albumin/Globulin Ratio Blood Type Antibody Screen Studies: RUQ US 06/28/18 IMPRESSION: 1. LIMITED STUDY. 2. CHOLELITHIASIS AND DISTENDED GALLBLADDER PREVIOUSLY NOTED WITHOUT SPECIFIC EVIDENCE FOR ACUTE CHOLECYSTITIS. 3. FINDINGS CONSISTENT WITH HEPATIC STEATOSIS. THERE IS NO EVIDENCE FOR BILIARY OBSTRUCTION. TTE 06/22 The left ventricular chamber size is normal. Unable to estimate left ventricular ejection fraction. The endocardium is not well visualized.Baseline LBBB. LV systolic function probably low normal to borderline reduced. There is septal flattening of the interventricular septum consistent with right ventricular volume or pressure overload. There is a left ventricular septal wall motion abnormality observed, possibly due to the presence of a left bundle branch block. Abnormal left ventricular diastolic function is observed. The left atrium is moderately dilated. The right ventricle is moderate to severely dilated. The right atrial cavity size is severely dilated. There is a trace of aortic regurgitation. There is trace to mild mitral regurgitation. There is moderate tricuspid regurgitation. The right ventricular systolic pressure is estimated at 57 mmHg. There is evidence of moderate pulmonary hypertension. There is trace to mild pulmonic regurgitation. There is moderate dilatation of the ascending aorta. There is mild dilatation of the aortic root. CXR 06/22 IMPRESSION: 1. MARKEDLY LIMITED STUDY. 2. LOW LUNG VOLUMES. 3. PULMONARY INTERSTITIAL EDEMA. 4. RIGHT MID AND LOWER LUNG CONSOLIDATION. CXR 06/21 IMPRESSION: INCREASED INTERSTITIAL EDEMA AND BIBASILAR AIRSPACE DISEASE. CXR 06/18 IMPRESSION: EXPIRATORY EXAMINATION. CT abd/pel 06/18 IMPRESSION: 1. There is pathologic dilatation of the gallbladder measuring up to 6.1 cm in diameter. Please correlate to signs or symptoms of acute cholecystitis and/or biliary obstruction. If clinically warranted superior characterization can be made with right upper quadrant ultrasound. 2. Small bibasilar pleural effusions and linear density most consistent with atelectasis. 3. Multiple low-attenuation structures in the bilateral kidneys, most of which have Hounsfield unit measurements consistent with simple cysts while others consistent negative attenuation indicating the presence of fat. There is no hydronephrosis. Recommend further characterization with nonemergent ultrasound. 4. There is low-attenuation replacement of the L3 vertebral body extending to the L1 and L2 vertebral bodies. The chronicity of this is unknown but could be related to prior traumatic injury resulting in the patient's reported paraplegia. Alternatively, this could be the result of infection in a patient with sepsis. 5. Contrast presumably injected into the left upper extremity is seen refluxing in the superficial veins of the left abdomen suggesting the presence of central venous obstruction or stenosis. 6. Infiltration of the subcutaneous fat overlying the bilateral low abdomen and extending to the buttocks could be consistent with anicteric/fluid overload which would also correlate to the small bibasilar pleural effusions. 7. There are additional chronic, degenerative and iatrogenic findings described in the body the report. Brain CT 06/18 IMPRESSION: #. Limited exam as noted. #. No gross evidence for intracranial hemorrhage. #. No gross evidence for mass effect. #. Negative for hydrocephalus. Cervical Spine CT 06/18 IMPRESSION: 1. DEGENERATIVE CHANGES OF THE CERVICAL SPINE WITHOUT DEFINITE EVIDENCE FOR FRACTURE OR DISLOCATION. 2. There is a low-attenuation partially calcified structure at the left lower neck suspected to be the thyroid gland. As clinically warranted superior characterization of the thyroid can be made with ultrasound. Gallbladder US 06/19 IMPRESSION: #. Limited exam as noted. #. Hepatosteatosis. #. Distended gallbladder with cholelithiasis. Negative for gallbladder wall thickening, pericholecystic fluid, or sonographic Napoles sign to strongly favor acute cholecystitis. Impression: 72M with htn, gerd, ALS, presents with AMS 2/2 severe sepsis 2/2 biliary obstruction. Acute on chronic respiratory failure. Asymptomatic atrial tachycardia. Pulm htn. Hyperammonemia. HCAP. Plan: Neuro - AMS, ALS - poor mental status from elevated ammonia and hypercarbia CV - hypotension - 2/2 septic shock - improving - off pressors this am - will restart home coreg at low dose for atrial tachycardia if bp tolerates Pulm - acute on chronic respiratory failure, hypercapnea, hypoxia - 2/2 pna/ards/als - bipap and wean as tolerated - cough assist q4 - NT suctioning - nebulizers q4h - chest physiotherapy ID - septic shock - 2/2 biliary obstruction vs hcap - vanc zosyn restarted - ID consult with Dr. Ornelas - lactate normal - iv hydration GI - biliary obstruction, hyperammonemia - repeat gb ultrasound - unchanged - monitor lfts - rifaximin - GI and surgery following Renal - sirisha, hypokalemia - 2/2 sepsis - monitor i/o - monitor lytes Heme - rectal bleeding - hemostasis achieved with pressure - evaluated by surgery - monitor cbc Endo - check fs, niss Lines - TLC, byers PPx - gi/dvt DNR/DNI Critical Care Time: 40 mins
[2018-06-29] MEDS ORDERED: NS 0.9% 500 ML* 500 ML IV ONE (10:20)
[2018-06-29] MEDS ORDERED: Ipratropium 0.5MG/2.5ML NEB* 0.5 MG/2.5 ML NEB.SOLN INH SCH (11:00)
[2018-06-29] MEDS ORDERED: Albuterol 2.5 MG/3 ML NEB.SOL* (0.083%) INH SCH (11:00)
[2018-06-29] MEDS ORDERED: Vancomycin Trough Check NOTE FOLLOW UP ONE (12:30)
[2018-06-29] MEDS ORDERED: Metoprolol Tartrate IV* 1 MG/ML 5 ML VIAL IV ONE (12:48)
[2018-06-29] MEDS ORDERED: Albuterol/Ipratropium NEB.SOL* Albuterol 2.5 MG/Ipratropium 0.5 MG 3 ML ONE (12:49)
[2018-06-29] MEDS ORDERED: Acetylcysteine INHALATION SOL* 200 MG/ML NEB.SOLN 10 ML INH SCH (14:00)
--- NOTE | 2018-06-29 14:04 | RAD ---
HISTORY: mucous plug COMPARISONS: June 28, 2018 at 1:23 PM VIEWS: 1: frontal portable view of the chest at 1:45 PM . Evaluation of the lung apices is limited by head positioning. FINDINGS: LINES AND TUBES: A left central venous catheter is noted from a subclavian approach with the tip overlying the expected location of the superior vena cava. CARDIOMEDIASTINAL SILHOUETTE: The cardiomediastinal silhouette is partially obscured. PLEURA: The right costophrenic angle is obscured. There is blunting of left costophrenic angle. LUNG PARENCHYMA: Again noted is near complete opacification of the right hemithorax. There is no slightly improved in aeration of the right lung apex. ABDOMEN: The upper abdomen is clear. There is no subphrenic gas. BONES AND SOFT TISSUES: No bone or soft tissue abnormalities are noted. IMPRESSION: 1. LIMITED STUDY. 2. AGAIN NOTED IS NEAR COMPLETE WHITE OUT OF THE RIGHT LUNG WITH SOMEWHAT IMPROVED AERATION OF THE RIGHT LUNG APEX COMPARED TO THE PREVIOUS EXAMINATION. 3. THERE IS A SMALL LEFT PLEURAL EFFUSION.
[2018-06-29] MEDS: Albuterol/Ipratropium NEB.SOL* Albuterol 2.5 MG/Ipratropium 0.5 MG 3 ML INH SCH ×3 (15:59→23:22)
[2018-06-29] MEDS: Acetylcysteine INHALATION SOL* 200 MG/ML NEB.SOLN 10 ML INH SCH ×3 (16:00→23:22)
[2018-06-29] MEDS: Baclofen TAB* 20 MG PO SCH ×2 (18:01→19:25)
[2018-06-29] MEDS: Lactobacillus Acidophilus* 1 TAB PO SCH ×2 (18:01→19:26)
[2018-06-29] MEDS: RiFAXimin* 550 MG TAB PO SCH ×2 (18:02→19:26)
[2018-06-29] MEDS: Sertraline* 100 MG TAB PO SCH (18:02)
[2018-06-30] MEDS: Vancomycin(*) 750 MG in NS 0.9% 250 ML* 250 ML IVPB SCH ×2 (01:07→11:31)
[2018-06-30] MEDS: Albuterol/Ipratropium NEB.SOL* Albuterol 2.5 MG/Ipratropium 0.5 MG 3 ML INH SCH ×6 (02:55→23:09)
[2018-06-30] MEDS: Acetylcysteine INHALATION SOL* 200 MG/ML NEB.SOLN 10 ML INH SCH ×6 (02:55→23:08)
[2018-06-30] MEDS: ZOSYN 3.375 GM Q8H per EXTENDED INFUSION IVPB SCH ×6 (04:34→18:16)
[2018-06-30 04:58] LABS: ABS Basophils 0 10^3/ul (0-0.2); ABS Eosinophils 0 10^3/ul (0-0.6); ABS Lymphocytes 0.2 10^3/ul (1.0-4.8); ABS Monocytes 0.9 10^3/ul (0-0.8); ABS Neutrophils 10.9 10^3/ul (1.5-7.7); ABS Nucleated RBC 0 10^3/ul; Eosinophil % 0.2 % (0-6); Hematocrit 33 % (42-52); Hemoglobin 10.7 g/dl (14.0-18.0); Lymphocyte % 1.6 % (25-47); Mean Corpuscular HGB Conc 32 g/dl (31-36); Mean Corpuscular Hemoglobin 29 pg (27-31); Mean Corpuscular Volume 89 fL (80-94); Mean Platelet Volume 8.9 um3 (7.4-10.4); Nucleated Red Blood Cells % 0; Platelet Count 212 10^3/ul (150-450); Red Blood Count 3.74 10^6/ul (4.00-5.40); Red Cell Distribution Width 16 % (10.5-15); White Blood Count 12.1 10^3/ul (3.5-10.8)
[2018-06-30] MEDS: Hydrocortisone INJ* 100 MG VIAL IV SCH (07:34)
[2018-06-30] MEDS ORDERED: Atropine SYRINGE* 0.1 MG/ML 10 ML SYRINGE (1 MG) ONE (08:22)
[2018-06-30] MEDS: D5W 1/2 NS 40 Meq KCL 1000 ML* 1,000 ML IV SCH ×2 (08:57→18:22)
[2018-06-30] MEDS ORDERED: Carvedilol TAB* 6.25 MG PO SCH (09:00)
[2018-06-30] MEDS ORDERED: Metoprolol Tartrate IV* 1 MG/ML 5 ML VIAL IV ONE (09:00)
--- NOTE | 2018-06-30 10:41 | PN ---
Date of Service: 06/30/18 Critical Care Services: 72M with htn, gerd, h/o LBBB, ALS presents with AMS that started yesterday. The patient was brought to the ER and was found to have leukocytosis and abnormal LFTs. He was hypotensive and started on if fluids and antibiotics. 06/19: Mental status somewhat improved as per family. BP remains low. 06/20: Mental status and lab work improving. 06/21: Hypoxic overnight now on HFNC. Family now says patient uses home ventilator when he sleeps and will bring in today. CXR showing volume overload and atelectasis. Labwork near normal. 06/22: Patient remains confused. LFTs slightly worse this am. Episodes of atrial tachycardia overnight but asymptomatic. requesting neurology evaluation. 06/23: Labwork continues to improve. Diuresed over the past 3 days. TTE with evidence of pulm htn. Patient continues to require home vent with supplemental o2. 06/24: Continues to improve. No longer with visual hallucinations. Oxygenation improving. 06/25: Lfts improved. Was out in chair yesterday and off home vent for several hours. Still hypoxic. Ammonia 70 this AM. 06/26: ALT mildy elevated. Ammonia 58 after starting rifaximin. Down to 8L NC. 06/27: Patient with rapid decline. Hypoxic. Hypercapnic. Hypotensive. AMS. Changed to hosp bipap. TLC placed. Pressors. Abx. Patient DNI. 06/28: New pulsatile bleeding seen in the leti-anal area. Pressure held until hemostasis achieved. Surgery evaluated at bedside. Discussed with family. Patient is DNR/DNI. 06/29: Labs slightly improved. Off pressors this am, however, more lethargic. 06/30: Deep suctioning performed with in-line suction catheter and copious thick secretions were suctioned. There after oxygenation improved and fio2 dropped to 60. Mental status worse. Vital Signs: Temp Pulse Resp BP SpO2 FiO2 96.9 F 69 7 137/42 99 60 06/30/18 07:56 06/30/18 09:30 06/30/18 09:55 06/30/18 09:30 06/30/18 09:30 06/30 09:50 Physical Exam: Gen - lethargic Obese HEENT - NCAT, EOMI Neck - No JVD CV - s1/s2, no murmur Lungs - dec bs, R > L Abd - soft, nt, Ext - contracted, +edema Neuro - lethargic. does not move extremities. Fluid Balance (Past 24 Hours): I= O= Net Intake & Output 06/28/18 06/29/18 06/30/18 07/01/18 06:59 06:59 06:59 06:59 Intake Total 5603 2691 1263 Output Total 1010 883 828 125 Balance 4593 1808 435 -125 Weight 122.9 kg 124.738 kg 131.5 kg Intake: IV Fluids 4114 1139 1171 ABX - VANCOMYCIN 326 ABX - ZOSYN 36 116 NS (0.9%) 4078 697 1171 IVPB 348 495 92 ABX - VANCOMYCIN 316 ABX - ZOSYN 348 179 92 Medicated IV 841 1057 CC - Norepinephrine/ 340 Levophed CC - Phenylephrine/ 466 914 Neosynephrine CC - Vasopressin/ 35 143 Pitressin Oral 300 0 Output: Urine 20 Byers 1010 883 808 125 Other: Date of Last Bowel 06/24/18 06/24/18 Movement Labs: Laboratory Results - last 24 hr 06/29/18 06/30/18 06/30/18 12:20 04:30 04:30 WBC RBC Hgb Hct MCV MCH MCHC RDW Plt Count MPV Neut % (Auto) Lymph % (Auto) [place] % (Auto) Eos % (Auto) Baso % (Auto) Absolute Neuts (auto) Absolute Lymphs (auto) Absolute Monos (auto) Absolute Eos (auto) Absolute Basos (auto) Absolute Nucleated RBC Nucleated RBC % Patient Temperature ABG pH ABG pH (Temp Correct) ABG pCO2 ABG pCO2 (Temp Corrct ABG pO2 ABG pO2 (Temp Correct ABG HCO3 ABG O2 Saturation ABG Base Excess EPAP IPAP Sodium 150 H Potassium 3.4 L Chloride 111 Carbon Dioxide 30 Anion Gap 9 BUN 39 H Creatinine 1.03 Est GFR ( Amer) 85.9 Est GFR (Non-Af Amer) 71.0 BUN/Creatinine Ratio 37.9 H Glucose 153 H Calcium 8.0 L Phosphorus 2.7 Magnesium 2.2 Total Bilirubin 0.60 Direct Bilirubin 0.30 H Indirect Bilirubin 0.3 AST 50 H ALT 146 H Alkaline Phosphatase 94 Ammonia 72 H Total Protein 5.2 L Albumin 2.8 L Globulin 2.4 Albumin/Globulin Ratio 1.2 Vancomycin Trough 23.2 06/30/18 06/30/18 04:30 05:17 WBC 12.1 H RBC 3.74 L Hgb 10.7 L Hct 33 L MCV 89 MCH 29 MCHC 32 RDW 16 H Plt Count 212 MPV 8.9 Neut % (Auto) 90.4 H Lymph % (Auto) 1.6 L [place] % (Auto) 7.6 H Eos % (Auto) 0.2 Baso % (Auto) 0.2 Absolute Neuts (auto) 10.9 H Absolute Lymphs (auto) 0.2 L Absolute Monos (auto) 0.9 H Absolute Eos (auto) 0 Absolute Basos (auto) 0 Absolute Nucleated RBC 0 Nucleated RBC % 0 Patient Temperature Not Reportable ABG pH 7.25 L ABG pH (Temp Correct) Not Reportable ABG pCO2 66 H ABG pCO2 (Temp Corrct Not Reportable ABG pO2 77 L ABG pO2 (Temp Correct Not Reportable ABG HCO3 25.3 ABG O2 Saturation 97.2 ABG Base Excess 0.5 EPAP 8 IPAP 20 Sodium Potassium Chloride Carbon Dioxide Anion Gap BUN Creatinine Est GFR ( Amer) Est GFR (Non-Af Amer) BUN/Creatinine Ratio Glucose Calcium Phosphorus Magnesium Total Bilirubin Direct Bilirubin Indirect Bilirubin AST ALT Alkaline Phosphatase Ammonia Total Protein Albumin Globulin Albumin/Globulin Ratio Vancomycin Trough Studies: RUQ US 06/28/18 IMPRESSION: 1. LIMITED STUDY. 2. CHOLELITHIASIS AND DISTENDED GALLBLADDER PREVIOUSLY NOTED WITHOUT SPECIFIC EVIDENCE FOR ACUTE CHOLECYSTITIS. 3. FINDINGS CONSISTENT WITH HEPATIC STEATOSIS. THERE IS NO EVIDENCE FOR BILIARY OBSTRUCTION. TTE 06/22 The left ventricular chamber size is normal. Unable to estimate left ventricular ejection fraction. The endocardium is not well visualized.Baseline LBBB. LV systolic function probably low normal to borderline reduced. There is septal flattening of the interventricular septum consistent with right ventricular volume or pressure overload. There is a left ventricular septal wall motion abnormality observed, possibly due to the presence of a left bundle branch block. Abnormal left ventricular diastolic function is observed. The left atrium is moderately dilated. The right ventricle is moderate to severely dilated. The right atrial cavity size is severely dilated. There is a trace of aortic regurgitation. There is trace to mild mitral regurgitation. There is moderate tricuspid regurgitation. The right ventricular systolic pressure is estimated at 57 mmHg. There is evidence of moderate pulmonary hypertension. There is trace to mild pulmonic regurgitation. There is moderate dilatation of the ascending aorta. There is mild dilatation of the aortic root. CXR 06/22 IMPRESSION: 1. MARKEDLY LIMITED STUDY. 2. LOW LUNG VOLUMES. 3. PULMONARY INTERSTITIAL EDEMA. 4. RIGHT MID AND LOWER LUNG CONSOLIDATION. CXR 06/21 IMPRESSION: INCREASED INTERSTITIAL EDEMA AND BIBASILAR AIRSPACE DISEASE. CXR 06/18 IMPRESSION: EXPIRATORY EXAMINATION. CT abd/pel 06/18 IMPRESSION: 1. There is pathologic dilatation of the gallbladder measuring up to 6.1 cm in diameter. Please correlate to signs or symptoms of acute cholecystitis and/or biliary obstruction. If clinically warranted superior characterization can be made with right upper quadrant ultrasound. 2. Small bibasilar pleural effusions and linear density most consistent with atelectasis. 3. Multiple low-attenuation structures in the bilateral kidneys, most of which have Hounsfield unit measurements consistent with simple cysts while others consistent negative attenuation indicating the presence of fat. There is no hydronephrosis. Recommend further characterization with nonemergent ultrasound. 4. There is low-attenuation replacement of the L3 vertebral body extending to the L1 and L2 vertebral bodies. The chronicity of this is unknown but could be related to prior traumatic injury resulting in the patient's reported paraplegia. Alternatively, this could be the result of infection in a patient with sepsis. 5. Contrast presumably injected into the left upper extremity is seen refluxing in the superficial veins of the left abdomen suggesting the presence of central venous obstruction or stenosis. 6. Infiltration of the subcutaneous fat overlying the bilateral low abdomen and extending to the buttocks could be consistent with anicteric/fluid overload which would also correlate to the small bibasilar pleural effusions. 7. There are additional chronic, degenerative and iatrogenic findings described in the body the report. Brain CT 06/18 IMPRESSION: #. Limited exam as noted. #. No gross evidence for intracranial hemorrhage. #. No gross evidence for mass effect. #. Negative for hydrocephalus. Cervical Spine CT 06/18 IMPRESSION: 1. DEGENERATIVE CHANGES OF THE CERVICAL SPINE WITHOUT DEFINITE EVIDENCE FOR FRACTURE OR DISLOCATION. 2. There is a low-attenuation partially calcified structure at the left lower neck suspected to be the thyroid gland. As clinically warranted superior characterization of the thyroid can be made with ultrasound. Gallbladder US 06/19 IMPRESSION: #. Limited exam as noted. #. Hepatosteatosis. #. Distended gallbladder with cholelithiasis. Negative for gallbladder wall thickening, pericholecystic fluid, or sonographic Napoles sign to strongly favor acute cholecystitis. Impression: 72M with htn, gerd, ALS, presents with AMS 2/2 severe sepsis 2/2 biliary obstruction. Acute on chronic respiratory failure. Asymptomatic atrial tachycardia. Pulm htn. Hyperammonemia. HCAP. Plan: Neuro - AMS, ALS - poor mental status from elevated ammonia and hypercarbia CV - hypotension - 2/2 septic shock - improving - off pressors - will restart home coreg at low dose for atrial tachycardia if bp tolerates Pulm - acute on chronic respiratory failure, hypercapnea, hypoxia - 2/2 pna/ards/als - bipap and wean as tolerated - cough assist q4 - NT suctioning - nebulizers q4h - chest physiotherapy ID - septic shock - 2/2 biliary obstruction vs hcap - vanc zosyn restarted - ID consult with Dr. Ornelas - lactate normal - iv hydration GI - biliary obstruction, hyperammonemia - repeat gb ultrasound - unchanged - monitor lfts - rifaximin - GI and surgery following Renal - sirisha, hypokalemia - 2/2 sepsis - monitor i/o - monitor lytes Heme - rectal bleeding - hemostasis achieved with pressure - evaluated by surgery - monitor cbc Endo - check fs, niss Lines - TLC, byers PPx - gi/dvt DNR/DNI Critical Care Time: 50 mins
[2018-06-30] MEDS: Baclofen TAB* 20 MG PO SCH ×2 (11:11→21:26)
[2018-06-30] MEDS: RiFAXimin* 550 MG TAB PO SCH ×2 (11:11→21:26)
[2018-06-30] MEDS: Lactobacillus Acidophilus* 1 TAB PO SCH ×2 (11:11→21:26)
[2018-06-30] MEDS: Sertraline* 100 MG TAB PO SCH (11:12)
[2018-06-30] MEDS ORDERED: Succinylcholine* 20 MG/ML 10 ML VIAL ONE (14:04)
--- NOTE | 2018-06-30 14:07 | RAD ---
HISTORY: mucous plug COMPARISONS: June 29, 2018 VIEWS: 1: frontal portable view of the chest at 1:36 PM . Evaluation is limited by head positioning. FINDINGS: LINES AND TUBES: A central venous catheter is noted with the tip overlying the superior vena cava. CARDIOMEDIASTINAL SILHOUETTE: The cardiomediastinal silhouette is normal for portable technique. PLEURA: There is no subphrenic angles bilaterally. LUNG PARENCHYMA: There is patchy alveolar opacification lung bases bilaterally. There has been improved aeration of the right lung field. ABDOMEN: The upper abdomen is clear. There is no subphrenic gas. BONES AND SOFT TISSUES: No bone or soft tissue abnormalities are noted. IMPRESSION: 1. LINES AND TUBES ABOVE. 2. SMALL BILATERAL PLEURAL EFFUSIONS. 3. BIBASILAR ATELECTASIS VERSUS CONSOLIDATION WITH IMPROVED AERATION OF THE RIGHT LUNG COMPARED TO THE 2017 EXAMINATION
[2018-06-30] MEDS ORDERED: Midazolam* 1 MG/ML 10 ML VIAL (10 MG) ONE (14:20)
[2018-06-30] MEDS ORDERED: KETAMINE HCL* 50 MG/ML 10 ML VIAL ONE (14:20)
[2018-06-30] MEDS ORDERED: Midazolam* 1 MG/ML 5 ML VIAL (5 MG) ONE (14:20)
[2018-06-30] MEDS ORDERED: Lidocaine 4% TOPICAL* 50 ML TOP.SOLN ONE (14:20)
[2018-06-30] MEDS ORDERED: fentaNYL* 50 MCG/ML 2 ML VIAL (100 MCG VIAL) ONE (14:20)
[2018-06-30] MEDS ORDERED: Norepinephrine 16MCG/ML IVPRE* 4,000 MCG/250 ML BAG IV ONE (14:29)
[2018-06-30] MEDS ORDERED: Propofol* 100 ML ONE (14:29)
[2018-06-30] MEDS ORDERED: Norepinephrine 16MCG/ML IVPRE* 4,000 MCG/250 ML BAG IV SCH (15:00)
--- NOTE | 2018-06-30 15:12 | PN ---
Progress Note - Progress Note Date of Service: 06/30/18 Note: Patient unable to be weaned from bipap and was intubated for respiratory failure at patient's family request to be transferred to [facility] for evaluation by Dr. Dai for ventilator weaning.
--- NOTE | 2018-06-30 15:16 | DS ---
Patient Name: Nikolai Lema Admission Date: 06/18/18 Discharge Date: 06/30/18 Attending Physician: Major Primary Care Physician: Nikolai Dai Consulting Physician(s): Librado (Surgery), Igor (GI), Johnson (Surgery) Condition on Discharge: Critical Final Diagnosis: Current Active Problems ALS (amyotrophic lateral sclerosis) (Acute) G12.21 Acute and chronic respiratory failure (Acute) J96.20 Atrial tachycardia (Acute) I47.1 Biliary obstruction (Acute) Hypertension (Acute) I10 Sepsis (Acute) Procedures: RUQ US 06/28/18 IMPRESSION: 1. LIMITED STUDY. 2. CHOLELITHIASIS AND DISTENDED GALLBLADDER PREVIOUSLY NOTED WITHOUT SPECIFIC EVIDENCE FOR ACUTE CHOLECYSTITIS. 3. FINDINGS CONSISTENT WITH HEPATIC STEATOSIS. THERE IS NO EVIDENCE FOR BILIARY OBSTRUCTION. TTE 06/22 The left ventricular chamber size is normal. Unable to estimate left ventricular ejection fraction. The endocardium is not well visualized.Baseline LBBB. LV systolic function probably low normal to borderline reduced. There is septal flattening of the interventricular septum consistent with right ventricular volume or pressure overload. There is a left ventricular septal wall motion abnormality observed, possibly due to the presence of a left bundle branch block. Abnormal left ventricular diastolic function is observed. The left atrium is moderately dilated. The right ventricle is moderate to severely dilated. The right atrial cavity size is severely dilated. There is a trace of aortic regurgitation. There is trace to mild mitral regurgitation. There is moderate tricuspid regurgitation. The right ventricular systolic pressure is estimated at 57 mmHg. There is evidence of moderate pulmonary hypertension. There is trace to mild pulmonic regurgitation. There is moderate dilatation of the ascending aorta. There is mild dilatation of the aortic root. CXR 06/22 IMPRESSION: 1. MARKEDLY LIMITED STUDY. 2. LOW LUNG VOLUMES. 3. PULMONARY INTERSTITIAL EDEMA. 4. RIGHT MID AND LOWER LUNG CONSOLIDATION. CXR 06/21 IMPRESSION: INCREASED INTERSTITIAL EDEMA AND BIBASILAR AIRSPACE DISEASE. CXR 06/18 IMPRESSION: EXPIRATORY EXAMINATION. CT abd/pel 06/18 IMPRESSION: 1. There is pathologic dilatation of the gallbladder measuring up to 6.1 cm in diameter. Please correlate to signs or symptoms of acute cholecystitis and/or biliary obstruction. If clinically warranted superior characterization can be made with right upper quadrant ultrasound. 2. Small bibasilar pleural effusions and linear density most consistent with atelectasis. 3. Multiple low-attenuation structures in the bilateral kidneys, most of which have Hounsfield unit measurements consistent with simple cysts while others consistent negative attenuation indicating the presence of fat. There is no hydronephrosis. Recommend further characterization with nonemergent ultrasound. 4. There is low-attenuation replacement of the L3 vertebral body extending to the L1 and L2 vertebral bodies. The chronicity of this is unknown but could be related to prior traumatic injury resulting in the patient's reported paraplegia. Alternatively, this could be the result of infection in a patient with sepsis. 5. Contrast presumably injected into the left upper extremity is seen refluxing in the superficial veins of the left abdomen suggesting the presence of central venous obstruction or stenosis. 6. Infiltration of the subcutaneous fat overlying the bilateral low abdomen and extending to the buttocks could be consistent with anicteric/fluid overload which would also correlate to the small bibasilar pleural effusions. 7. There are additional chronic, degenerative and iatrogenic findings described in the body the report. Brain CT 06/18 IMPRESSION: #. Limited exam as noted. #. No gross evidence for intracranial hemorrhage. #. No gross evidence for mass effect. #. Negative for hydrocephalus. Cervical Spine CT 06/18 IMPRESSION: 1. DEGENERATIVE CHANGES OF THE CERVICAL SPINE WITHOUT DEFINITE EVIDENCE FOR FRACTURE OR DISLOCATION. 2. There is a low-attenuation partially calcified structure at the left lower neck suspected to be the thyroid gland. As clinically warranted superior characterization of the thyroid can be made with ultrasound. Gallbladder US 06/19 IMPRESSION: #. Limited exam as noted. #. Hepatosteatosis. #. Distended gallbladder with cholelithiasis. Negative for gallbladder wall thickening, pericholecystic fluid, or sonographic Napoles sign to strongly favor acute cholecystitis. History of Present Illness Mr. 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 He resides [place] at [facility], approximately 3[place] from [place] and has been in town for the weekend to visit his son who works in [place]. 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 They were walking around a mall yesterday when the patient started to have occasional headaches, mostly located in the occipital area as well as pain along the posterior neck. He denied any photophobia, fever, muscle spasm, weakness, or numbness. He denied any chest pain, cough, shortness of breath, fever, or chills. He has history of pneumonia in the past for which he was hospitalized about 5 years ago as well as history of urinary tract infection; however, the patient is able to urinate on his own and he does not use a self-cath at home. He lives in [place], [place] and has no history of coronary artery disease. According to his who checked his blood pressure earlier today, it was noted to be low in average of 80s/40s associated with malaise, lack of appetite, nausea as well as upper back pain and neck pain. The patient notes that his posterior neck pain is rated 5/10, achy and it does not radiate anywhere else. Given his ongoing symptoms, he was brought to the emergency room for further evaluation. He had laboratory workup that revealed leukocytosis with white count of 14,000 as well as hypotension without tachycardia or high temperature; however, consistent with sepsis. The patient also had chemistry panel that revealed elevated bilirubin of 4 as well as elevated troponin of 0.17. His urinalysis showed white blood cells, but there was no evidence of nitrites or leukocyte esterase to be consistent with UTI. It was unclear what was the source of his sepsis for which we were asked to see the patient for further evaluation and to consider admission for close observation and treatment of severe sepsis. Laboratory/Data Intial LFTs Hospital Course The patient was admitted to the ICU and started on vancomycin and zosyn. Over the next several days the patients LFTs improved an it appeared that the patient had passed a gallstone. He had episodes of atrial tachycardia which resolved after resuming his coreg which had been stopped on admission for hypotension. The patient continued to improve until Thursday06/27/18. The patient had a rapid decline in mental status. His respiratory status declined as well and was placed on 100% bipap. A central line was placed and he was started on vasopressors. IV abx were restarted and his hypotension resolved. CXR showed complete white out of the right lung field which was secondary to mucus plugging. Despite aggressive chest pt, nebulizers, and suctioning no improvement was made. Eventually the patient was intubated. He was unable to be successfully weaned 2/2 on-going sepsis and ALS. [place], [place] was contacted and arrangements were made for the patient to be transferred so he could be evaluated by his neurologist Dr. Dai for ventilator weaning. The patient also had an episode of hemorrhoidal bleeding which resolved by holding pressure. Discharge Medications - See [facility] Rec Discharge Instructions - Transfer to [facility] Follow up Appointments - Follow up with your PMD after discharge. Code Status - Full Code
[2018-06-30] MEDS: Propofol* 100 ML IV SCH ×2 (15:29→22:19)
--- NOTE | 2018-06-30 15:58 | RAD ---
HISTORY: ET TUBE PLACEMENT COMPARISONS: June 30, 2018 at 1:34 PM VIEWS: 2 : frontal portable view of the chest at 3:23 PM. Evaluation is limited by head positioning. FINDINGS: LINES AND TUBES: An endotracheal tube is noted with the tip overlying the trachea between the clavicles and the terrance. A gastric tube is noted. The tip is below the [id number] of the current examination, but is below the diaphragm. A left internal jugular venous catheter is noted with the tip overlying the superior vena cava. CARDIOMEDIASTINAL SILHOUETTE: The cardiomediastinal silhouette is stable. PLEURA: There is blunting of costophrenic angles bilaterally. LUNG PARENCHYMA: There is a diffuse reticular pattern with indistinct pulmonary vessels. There is confluent alveolar opacification of the lower lung mclean bilaterally and of the right midlung field, with mild progression compared to the previous examination. ABDOMEN: The upper abdomen is clear. There is no subphrenic gas. BONES AND SOFT TISSUES: No bone or soft tissue abnormalities are noted. IMPRESSION: 1. LINES AND TUBES ABOVE. 2. SMALL BILATERAL PLEURAL EFFUSIONS. 3. PULMONARY INTERSTITIAL EDEMA. 4. PATCHY AIRSPACE DISEASE OF THE LUNGS BILATERALLY, PROGRESSED FROM THE EARLIER EXAMINATION.
[2018-06-30] MEDS ORDERED: TPN CENTRAL STANDARD BASE A CENTR SCH ×12 (17:00)
[2018-06-30] MEDS: Morphine INJ* 2 MG/ML 1 ML SYRINGE (TWO MG - NEW SYRINGE VERSION) IV PRN ×2 (18:16→21:25)
[2018-07-01] MEDS: Vancomycin(*) 750 MG in NS 0.9% 250 ML* 250 ML IVPB SCH (00:13)
[2018-07-01] MEDS: Morphine INJ* 2 MG/ML 1 ML SYRINGE (TWO MG - NEW SYRINGE VERSION) IV PRN (03:05)
[2018-07-01 03:46] VITALS: BP 152/67
[2018-07-01] MEDS ORDERED: Lansoprazole susp Kit 3 MG/ML (30 MG = 10 ML) G TUBE SCH (09:00)
[2018-07-01] MEDS ORDERED: Vancomycin Trough Check NOTE FOLLOW UP ONE (11:30)
== END 2018-07-01 03:30 | disposition short-term general hospital (02) | DRG 871 ==
LOC: ED 12:11 → ICU 15:42
PROVIDERS: ADMIT Internal Medicine; ATTEND Internal Medicine
PROC: 0T9B70Z Drainage of Bladder with Drainage Device, Via Natural or Artificial Opening (ICD-10-PCS; principal; 2018-06-26)
PROC: 5A09357 Assistance with Respiratory Ventilation, Less than 24 Consecutive Hours, Continuous Positive Airway Pressure (ICD-10-PCS; 2018-06-26)
PROC: 05HN33Z Insertion of Infusion Device into Left Internal Jugular Vein, Percutaneous Approach (ICD-10-PCS; 2018-06-27)
DX: A41.9 Sepsis, unspecified organism (principal); G82.50 Quadriplegia, unspecified; J96.21 Acute and chronic respiratory failure with hypoxia; J96.22 Acute and chronic respiratory failure with hypercapnia; R65.21 Severe sepsis with septic shock; G12.21 Amyotrophic lateral sclerosis; I45.2 Bifascicular block; N17.9 Acute kidney failure, unspecified; J98.11 Atelectasis; E72.20 Disorder of urea cycle metabolism, unspecified; I47.1 Supraventricular tachycardia; K62.5 Hemorrhage of anus and rectum; K80.51 Calculus of bile duct without cholangitis or cholecystitis with obstruction; E86.0 Dehydration; Z87.01 Personal history of pneumonia (recurrent); I10 Essential (primary) hypertension; K21.9 Gastro-esophageal reflux disease without esophagitis; F32.9 Major depressive disorder, single episode, unspecified; Z90.89 Acquired absence of other organs; Z99.3 Dependence on wheelchair; Z87.440 Personal history of urinary (tract) infections; R14.0 Abdominal distension (gaseous); Z88.1 Allergy status to other antibiotic agents; Z88.8 Allergy status to other drugs, medicaments and biological substances; F41.9 Anxiety disorder, unspecified; R74.8 Abnormal levels of other serum enzymes; Z99.81 Dependence on supplemental oxygen; E87.70 Fluid overload, unspecified; I27.20 Pulmonary hypertension, unspecified; E87.6 Hypokalemia; Z66 Do not resuscitate; E66.01 Morbid (severe) obesity due to excess calories; R60.0 Localized edema
CPT/HCPCS: 36415; 36600; 70450; 71045; 72125; 74177; 76705; 80048; 80053; 80076; 80202; 81003; 81015; 82140; 82550; 82803; 83605; 83690; 83735; 83880; 84100; 84145; 84484; 85025; 85060; 85610; 85730; 86850; 86900; 86901; 87040; 87070; 87076; 87086; 87205; 87641; 93005; 93306; 94002; 94003; 94640; 94660; 94667; 94668; A9270-GY; C8929; G8978-GP-CL; G8979-GP-CL; G8980-GP-CK; J0330; J0461; J1644; J1720; J1940; J2250; J2270; J2354; J2405; J2543; J2704; J2765; J3010; J3370; J3480; J3490; Q9967